=== PATIENT | female | born 1960 | race Caucasian/White ===

== ENCOUNTER 2018-03-04 17:57 | Inpatient (IN) | payer MEDICARE, OTHER ==
[~2018-03-04] VITALS: Ht 162.6 cm; Wt 94.3 kg
[~2018-03-04 17:57] MED LIST: ALPRAZOLAM; ALPRAZOLAM1 M1 PO; AMLODIPINE BESY10 MG PO; BUSPIRONE HCL5 MG PO; CARAFATE1 GM PO; CRESTOR20 MG PO; DILAUDID2 MG; ESCITALOPRAM OX20 MG PO; FENOFIBRATE134 MG PO; FUROSEMIDE20 MG PO; LEXAPRO; LYRICA75 MG PO; NORCO 10-325 T1 EACH PO; OMEPRAZOLE40 MG PO; OXYCODONE; OXYCODONE HCL5 M1; OXYCODONE-ACET1 EAC3 PO; POTASSIUM; POTASSIUM CHLO20 ME1 PO; REGLAN10 MG PO; RISPERDAL; RISPERDAL0.5 MG PO; TALWIN PO; VASCEPA PO; XANAX; XANAX1 MG PO; ZANAFLEX; ZANAFLEX4 MG PO; ZOFRAN ODT4 MG PO; tylenol #4 PO
[2018-03-04] MEDS ORDERED: ASPIRIN 81 MG CHEW TAB PO ONE (18:45)
[2018-03-04] MEDS ORDERED: ACETAMINOPHEN 1000 MG/100 ML IV ONE (19:15)
--- NOTE | 2018-03-04 19:29 | Diagnostic Imaging Report ---
EXAMINATION: CHEST SINGLE (PORTABLE) INDICATION: Chest pain COMPARISON: Chest x-ray 09/19/2017 FINDINGS: AP view TUBES and LINES: None. LUNGS: Lungs are not well inflated. Perihilar vascular crowding and atelectasis. There is no evidence of pneumonia or pulmonary edema. PLEURA: No pleural effusion or pneumothorax. HEART AND MEDIASTINUM: The cardiomediastinal silhouette is unremarkable. BONES AND SOFT TISSUES: No acute osseous lesion. Healed left rib fractures. Soft tissues are unremarkable. UPPER ABDOMEN: No free air under the diaphragm. IMPRESSION: Hypoinflated lungs with perihilar vascular crowding and atelectasis. No acute abnormalities. Signed by: Dr. Armaan Fernández M.D. on 03/04/2018 7:25 PM
[2018-03-04 19:41] LABS: BASOPHILS % 0.1 % (0.0-1.0); EOSINOPHILS # (AUTO) 0.2 (0.0-0.4); EOSINOPHILS % 1.6 % (0.0-6.0); HEMATOCRIT 36.2 % (34.2-44.1); HEMOGLOBIN 11.6 g/dL (12.0-16.0); LYMPHOCYTES # (AUTO) 2.6 (1.0-3.2); MEAN CORPUSCULAR HEMOGLOBIN 26.5 pg (28-32); MEAN CORPUSCULAR VOLUME 82.8 fL (81-99); NEUTROPHILS # (AUTO) 9.9 (2.1-6.9); PLATELET COUNT 246 x10e3/uL (140-360); RED BLOOD COUNT 4.37 x10e6/uL (3.6-5.1); RED CELL DISTRIBUTION WIDTH 14.3 % (11.7-14.4)
[2018-03-04 19:54] LABS: INR 1.01; PARTIAL THROMBOPLASTIN TIME 30.4 seconds (23.8-35.5); PROTHROMBIN TIME 12.5 seconds (11.9-14.5)
[2018-03-04 20:05] LABS: ALANINE AMINOTRANSFERASE 12 IU/L (0-55); ALBUMIN 3.8 g/dL (3.5-5.0); ALBUMIN/GLOBULIN RATIO 1.1 (0.8-2.0); ALKALINE PHOSPHATASE 122 IU/L (40-150); ANION GAP 14.5 mmol/L (8-16); BLOOD UREA NITROGEN 16 mg/dL (7-26); BUN/CREATININE RATIO 16 (6-25); CALCIUM 9.4 mg/dL (8.4-10.2); CARBON DIOXIDE 22 mmol/L (22-29); CHLORIDE 103 mmol/L (98-107); CREATINE KINASE 182 IU/L (29-168); CREATININE, SERUM 0.99 mg/dL (0.57-1.11); EST GLOMERULAR FILTRATION RATE 57 ML/MIN (60-); GLUCOSE 107 mg/dL (74-118); POTASSIUM 4.5 mmol/L (3.5-5.1); SODIUM 135 mmol/L (136-145)
[2018-03-04] MEDS ORDERED: FUROSEMIDE INJ 10 MG/ML 4 ML VIAL IV ONE (23:15)
[2018-03-05] VITALS (7 sets, daily range): BP systolic 82–147; BP diastolic 55–78
[2018-03-05] MEDS ORDERED: SODIUM CHLORIDE 0.9% 1000ML 1,000 ML IV SCH (00:01)
--- OUTSIDE RECORDS SUMMARY | 2018-03-05 00:11 | XMS REPORT | Clinical Summary ---
Author Author [facility] Address Unknown Phone Unavailable Care Team Providers Care Operations Forester Name Role Phone PCP Unavailable Allergies No Known Allergies Current Medications Prescription Sig. Disp. Refills Start End Date Status Date ALPRAZolam (XANAX) 0.25 Take 0.25 mg by mouth as Active MG tablet needed for Anxiety. atorvastatin (LIPITOR) 40 Take 1 tablet (40 mg 30 tablet 2 09/21/20 09/21/20 Active MG tablet total) by mouth nightly. 17 18 carvedilol (COREG) 3.125 Take 1 tablet (3.125 mg 60 tablet 2 09/21/20 09/21/20 Active MG tablet total) by mouth 2 (two) 17 18 times daily with breakfast and dinner. gabapentin (NEURONTIN) Take 1 capsule (100 mg 90 capsule 2 09/21/20 09/21/20 Active 100 MG capsule total) by mouth 3 (three) 17 18 times daily. clindamycin (CLEOCIN) 300 Take 1 capsule (300 mg 21 capsule 0 09/28/20 MG capsule total) by mouth 3 (three) 17 17 times daily for 7 days. Active Problems Problem Noted Date Other chest pain 09/19/2017 Cellulitis 09/19/2017 Chest pain 09/19/2017 Encounters Date Type Specialty Care Team Description 09/19/2017 [facility] General Internal Medicine Diogenes Palafox Cellulitis of right lower - Encounter MD Triny extremity;Other chest 09/21/2017 No Jones, pain;Chronic back painMD unspecified back location, unspecified back pain laterality 09/19/2017 Orders Only General Internal Medicine after 03/04/2017 Social History Tobacco Use Types Packs/Day Years Used Date Never Assessed Sex Assigned at Date Recorded Not on file Last Filed Vital Signs Vital Sign Reading Time Taken Blood Pressure 126/78 09/21/2017 3:00 PM YARN TEXTURE MACHINE OPERATOR Pulse 72 09/21/2017 3:00 PM YARN TEXTURE MACHINE OPERATOR Temperature 35.8 C (96.5 F) 09/21/2017 3:00 PM YARN TEXTURE MACHINE OPERATOR Respiratory Rate 19 09/21/2017 3:00 PM YARN TEXTURE MACHINE OPERATOR Oxygen Saturation 98% 09/21/2017 3:00 PM YARN TEXTURE MACHINE OPERATOR Inhaled Oxygen - - Concentration Weight 90.7 kg (200 lb) 09/21/2017 3:00 PM YARN TEXTURE MACHINE OPERATOR Height - - Body Mass Index - - Plan of Treatment Not on file Results * RHYTHM STRIP - SCAN (10/06/2017 2:16 PM) Only the most recent of 3 results within the time period is included. * EKG-SCANNED (09/23/2017 1:10 PM) * CBC with platelet count + automated diff (09/21/2017 5:06 AM) Only the most recent of 4 results within the time period is included. Component Value Ref Range WBC 7.8 3.5 - 10.5 K/ L RBC 3.95 3.93 - 5.22 M/ L Hemoglobin 10.9 (L) 11.2 - 15.7 GM/DL Hematocrit 35.2 34.1 - 44.9 % MCV 89.1 79.4 - 94.8 fL MCH 27.6 25.6 - 32.2 pg MCHC 31.0 (L) 32.2 - 35.5 GM/DL RDW 14.6 (H) 11.7 - 14.4 % Platelets 260 150 - 450 K/CU MM MPV 10.2 9.4 - 12.3 fL nRBC 0 0 - 0 /100 WBC % Neutros 51 % % Lymphs 34 % % Monos 11 % % Eos 4 % % Baso 0 % # Neutros 4.00 1.56 - 6.13 K/ L # Lymphs 2.67 1.18 - 3.74 K/ L # Monos 0.82 (H) 0.24 - 0.36 K/ L # Eos 0.28 0.04 - 0.36 K/ L # Baso 0.02 0.01 - 0.08 K/ L Immature 0 0 - 1 % Granulocytes-Relative Specimen Performing Laboratory Blood - Arm, Left [facility] [address] [address] * CBC with platelet count + automated diff (09/21/2017 5:06 AM) Only the most recent of 4 results within the time period is included. Specimen Performing Laboratory Blood Narrative The following orders were created for panel order CBC with platelet count + automated diff. Procedure Abnormality Status --------- - ------ CBC with platelet count ...[[id number]]AbnormalFinal result Please view results for these tests on the individual orders. * Hepatic function panel (09/21/2017 5:06 AM) Only the most recent of 3 results within the time period is included. Component Value Ref Range Protein, Total 6.6Comment: Specimen slightly hemolyzed 6.0 - 8.3 gm/dL Albumin 3.6Comment: Specimen slightly hemolyzed 3.5 - 5.0 g/dL Total Bilirubin <0.3Comment: Specimen slightly hemolyzed 0.2 - 1.2 mg/dL Bilirubin, Direct 0.1Comment: Specimen slightly hemolyzed 0.1 - 0.5 mg/dL Alkaline Phosphatase 100 40 - 150 U/L AST 21Comment: Specimen slightly hemolyzed 5 - 34 U/L ALT 15Comment: Specimen slightly hemolyzed 6 - 55 U/L Specimen Performing Laboratory Blood - Arm, [address] [address] * Basic metabolic panel (09/21/2017 5:06 AM) Only the most recent of 4 results within the time period is included. Component Value Ref Range Sodium 140 136 - 145 meq/L Potassium 4.0Comment: Specimen slightly hemolyzed 3.5 - 5.1 meq/L Chloride 104 98 - 107 meq/L CO2 27 22 - 29 meq/L BUN 14 7 - 21 mg/dL Creatinine 0.76Comment: Specimen slightly hemolyzed 0.57 - 1.25 mg/dL Glucose 128 (H) 70 - 105 mg/dL Calcium 8.6 8.4 - 10.2 mg/dL EGFR 78Comment: ESTIMATED GFR IS NOT ACCURATE mL/min/1.73 sq m CREATININE CLEARANCE IN PREDICTING GLOMERULAR FILTRATION RATE. ESTIMATED GFR IS NOT APPLICABLE FOR DIALYSIS PATIENTS. Specimen Performing Laboratory Blood - Arm, [address] [address] * ECHOCARDIOGRAM REPORT - SCAN (09/20/2017 3:20 PM) * PERIPHERAL VASCULAR REPORT - SCAN (09/20/2017 3:20 PM) * Troponin I (09/20/2017 12:28 PM) Only the most recent of 4 results within the time period is included. Component Value Ref Range Troponin I <0.01 0.00 - 0.03 ng/mL Specimen Performing Laboratory Blood - Arm, [address] [address] Narrative Troponin I (TnI) levels must be interpreted in the context of the presenting symptoms and the clinical findings. Elevated TnI levels indicate myocardial damage, but are not specific for ischemic heart disease. Elevated TnI levels are seen in patients with other cardiac conditions (including myocarditis and congestive heart failure), and slight TnI elevations occur in patients with other conditions, including sepsis, renal failure, acidosis, acute neurological disease, and persistent tachyarrhythmia. * Creatine Kinase (CK), Total and MB (09/20/2017 12:28 PM) Only the most recent of 4 results within the time period is included. Component Value Ref Range Total CK 404 (H) 29 - 200 U/L CK-MB 4.9 0.0 - 6.6 ng/mL MB Relative Index 1.2 % Specimen Performing Laboratory Blood - Arm, [place] [address] Narrative CK-MB Reference Range: <6.7Normal 6.7-10.0Borderline >10.0 Abnormal * Transthoracic 2D echo w/ doppler (cw/pw/color) (09/20/2017 10:26 AM) Component Value Ref Range Ejection Fraction Specimen Performing Laboratory [facility] Narrative Transthoracic Echocardiography Report (TTE) Demographics Patient Name Preston WEISS of Study 09/20/2017 LILLIE [id number] Female Visit Number [id number] Unknown [id number] Room Number 955 Number Date of Birth1960Referring Physician Diogenes Palafox MD Age57 year(s)Derrick Engineer Gisela Calix, Interpreting Nupur Redding MD Procedure Type of Study TTE procedure:2DECHO W DOPPLER(CW/PW/COLOR) (JON) Indications:Acute Chest Pain/ Suspected CAD. Clinical History CHEST PAIN CELLULITIS HGB 13.3 HCT 42.9 % Height: 63 inches Weight: 70.31 kg (155 lbs) BSA: 1.74 m^2 BMI: 27.46 kg/m^2 HR: 83 bpm BP: 156/86 mmHg Summary The left ventricle is chamber size (by vol index) is normal (female - LVED vol - 29-61ml/m2). LV septal thickness is normal (0.6-1.1cm). LV posterior wall thickness is mildly increased (1.2-1.4cm) . All of the LV segments contract normally . Global LV systolic function normal . Estimated LVEF by qualitative assessment is normal (55-60%) . Grade 1 diastolic dysfunction (impaired relaxation and low-normal LA pressure). The right ventricular chamber size and systolic function are within normal limits. Unable to estimate peak systolic PA pressure; inadequate TR velocity signal. No pericardial effusion is visualized. Previous Study No prior exam available for comparison. Signature Findings Technical Quality: Technically adequate exam. Rhythm/BPRegular sinus rhythm during the exam. Left Ventricle The left ventricle is chamber size (by vol index ) is normal (female - LVED vol - 29-61ml/m2). LV septal thickness is normal (0.6- 1.1cm). LV posterior wall thickness is mildly increased (1.2-1.4cm) . All of the LV segments contract normally . Global LV systolic function normal . Estimated LVEF by qualitative assessment is normal (55-60%) . Grade 1 diastolic dysfunction ( impaired relaxation and low-normal LA pressure). Left AtriumLA is well visualized. LA size is normal (16-34 ml/m2) . Right VentricleThe right ventricular chamber size and systolic function are within normal limits. Right Atrium The RA is well visualized. RA cavity size is normal . Aortic Valve Mild AoV cusp thickening. No evidence of aortic regurgitation. No evidence of aortic stenosis. Mitral Valve Normal MV structure. Trace mitral regurgitation. Tricuspid ValveTV structure is normal. A trace of tricuspid regurgitation. Unable to estimate peak systolic PA pressure; inadequate TR velocity signal. Pulmonic Valve Normal PV structure and function by limited views and Doppler. AortaAortic root size (SInus of Valsalva diameter) is normal . PericardiumNo pericardial effusion is visualized. IVC/SVC/PA/PV/PleuralThe inferior vena cava is adequately visualized. The inferior vena cava size is normal . The estimated RA pressure by IVC dynamics 0-5mmHg . Chambers/Structures Left Atrium LA Volume: 41.35 mlLA Area: 15.8 cm ^2 LA Vol. Index: 24 ml/m^2 Left Ventricle LVIDd: 4.7 cm LVIDs: 2.94 cm LV Septum Diastolic: 1.11 cm LV PW Diastolic: 1.36 cmLV FS: 37.5 % LVEDV Chow's:87.33 ml LVEDVI: 50 ml/m^2 LVOT Diameter: 2.13 cm Doppler/Quantitative Measurements Mitral Valve MV Peak E-Wave: 0.7 m/s MV Peak A-Wave: 0.99 m/s E/ A Ratio: 0.7 Peak Gradient: 1.96 mmHg Deceleration Time: 203.7 msec MV Dane. Peak: Tissue Doppler E' Lateral Velocity: 0.13 m/s A' Lateral Velocity: 0.14 m/s E/E ': 5.35 Aortic Valve Peak Velocity: 2.03 m/sMean Velocity: 1.41 m/s Peak Gradient: 16.54 mmHgMean Gradient: 9.19 mmHg AV Area (continuity): 2.25 cm^2 AV VTI: 42.87 cm AV DVI: 0.63 LVOT Peak Velocity: 1.25 m/s Peak Gradient: 6.28 mmHg Mean Velocity: 0.78 m/s Mean Gradient: 2.95 mmHg LVOT Diameter: 2.13 cmLVOT VTI: 27.13 cm LVOT Area: 3.56 cm^2LVOT SV:96.62 ml LVOT CO: 8.02 l/min LVOT CI: 4.61 l/min/m^2 Procedure Note Interface, External Ris In - 09/20/2017 2:56 PM YARN TEXTURE MACHINE OPERATOR Transthoracic Echocardiography Report (TTE) Demographics Patient Name ROCIO WEISS Date of Study 09/20/2017 LILLIE Gender Female Visit Number [id number] Race Unknown Room Number 955 Number Date of 1960 Referring Physician Diogenes Palafox MD Age 57 year(s) Derrick Engineer Gisela Mcconnell Office Machine Technician Lor Calix, Interpreting Johnson Rutherford RDCS Physician Procedure Type of Study TTE procedure:2DECHO W DOPPLER(CW/PW/COLOR) (JON) Indications:Acute Chest Pain/ Suspected CAD. Clinical History CHEST PAIN CELLULITIS HGB 13.3 HCT 42.9 % Height: 63 inches Weight: 70.31 kg (155 lbs) BSA: 1.74 m^2 BMI: 27.46 kg/m^2 HR: 83 bpm BP: 156/86 mmHg Summary The left ventricle is chamber size (by vol index) is normal (female - LVED vol - 29-61ml/m2). LV septal thickness is normal (0.6-1.1cm). LV posterior wall thickness is mildly increased (1.2-1.4cm) . All of the LV segments contract normally . Global LV systolic function normal . Estimated LVEF by qualitative assessment is normal (55-60%) . Grade 1 diastolic dysfunction (impaired relaxation and low-normal LA pressure). The right ventricular chamber size and systolic function are within normal limits. Unable to estimate peak systolic PA pressure; inadequate TR velocity signal. No pericardial effusion is visualized. Previous Study No prior exam available for comparison. Signature Findings Technical Quality: Technically adequate exam. Rhythm/BP Regular sinus rhythm during the exam. Left Ventricle The left ventricle is chamber size (by vol index) is normal (female - LVED vol - 29-61ml/m2). LV septal thickness is normal (0.6-1.1cm). LV posterior wall thickness is mildly increased (1.2-1.4cm) . All of the LV segments contract normally . Global LV systolic function normal . Estimated LVEF by qualitative assessment is normal (55-60%) . Grade 1 diastolic dysfunction (impaired relaxation and low-normal LA pressure). Left Atrium LA is well visualized. LA size is normal (16-34 ml/m2) . Right Ventricle The right ventricular chamber size and systolic function are within normal limits. Right Atrium The RA is well visualized. RA cavity size is normal . Aortic Valve Mild AoV cusp thickening. No evidence of aortic regurgitation. No evidence of aortic stenosis. Mitral Valve Normal MV structure. Trace mitral regurgitation. Tricuspid Valve TV structure is normal. A trace of tricuspid regurgitation. Unable to estimate peak systolic PA pressure; inadequate TR velocity signal. Pulmonic Valve Normal PV structure and function by limited views and Doppler. Aorta Aortic root size (SInus of Valsalva diameter) is normal . Pericardium No pericardial effusion is visualized. IVC/SVC/PA/PV/Pleural The inferior vena cava is adequately visualized. The inferior vena cava size is normal . The estimated RA pressure by IVC dynamics 0-5mmHg . Chambers/Structures Left Atrium LA Volume: 41.35 ml LA Area: 15.8 cm^2 LA Vol. Index: 24 ml/m^2 Left Ventricle LVIDd: 4.7 cm LVIDs: 2.94 cm LV Septum Diastolic: 1.11 cm LV PW Diastolic: 1.36 cm LV FS: 37.5 % LVEDV Chow's:87.33 ml LVEDVI: 50 ml/m^2 LVOT Diameter: 2.13 cm Doppler/Quantitative Measurements Mitral Valve MV Peak E-Wave: 0.7 m/s MV Peak A-Wave: 0.99 m/s E/A Ratio: 0.7 Peak Gradient: 1.96 mmHg Deceleration Time: 203.7 msec MV Dane. Peak: Tissue Doppler E' Lateral Velocity: 0.13 m/s A' Lateral Velocity: 0.14 m/s E/E': 5.35 Aortic Valve Peak Velocity: 2.03 m/s Mean Velocity: 1.41 m/s Peak Gradient: 16.54 mmHg Mean Gradient: 9.19 mmHg AV Area (continuity): 2.25 cm^2 AV VTI: 42.87 cm AV DVI: 0.63 LVOT Peak Velocity: 1.25 m/s Peak Gradient: 6.28 mmHg Mean Velocity: 0.78 m/s Mean Gradient: 2.95 mmHg LVOT Diameter: 2.13 cm LVOT VTI: 27.13 cm LVOT Area: 3.56 cm^2 LVOT SV:96.62 ml LVOT CO: 8.02 l/min LVOT CI: 4.61 l/min/m^2 * Venous doppler legs bilateral (09/20/2017 8:55 AM) Component Value Ref Range Ejection Fraction Specimen Performing Laboratory [facility] Impressions Right Impression 1. There is no deep venous obstruction in the common femoral, profunda femoral, femoral, popliteal or posterior tibial veins where visualized. 2. There is no superficial venous obstruction in the great saphenous vein where visualized. 3. The peroneal veins are not visualized due to edema and patients inability to remain still. Left Impression 1. There is no deep venous obstruction in the common femoral, profunda femoral, femoral, popliteal or posterior tibial veins where visualized. 2. There is no superficial venous obstruction in the great saphenous vein where visualized. 3. The peroneal veins are not visualized due to edema and patients inability to remain still. Conclusions Summary Venous duplex imaging and compression of the bilateral lower extremities were performed. The veins were technically difficult to visualize due to edema and patient body habitus. The bilateral venous systems were patent and compressible with no evidence of thrombus where visualized. The venous Doppler waveforms were phasic with respiration. Signature Velocities are measured in cm/s ; Diameters are measured in cm Narrative PV LAB - Lower Extremities DVT Study Demographics Patient NameROCIO WEISS Date of Study 09/20/2017 LILLIE Age 57 Visit [id number] Gender Female Date of 1959 Number Referring Annabel Warner Room Number 955 Physician MD Shar Derrick Engineer Ayaka Jimenez T InterpretingPhysician ANI Mills, KALIN Procedure Type of Study: Veins: Lower Extremities DVT Study, VENOUS DOPPLER LEG, BILATERAL. Indications for Study:Bilateral leg pain and Bilateral leg swelling. Patient Status:Routine. Study Location:Portable. Technical Quality:Technically Difficult. Risk Factors History of Disease + +----+ + !Diagnosis !Date!Comments ! + +----+ + !History/Risk Factors: !!Chest pain and back pain. ! + +----+ + Procedure Note Interface, External Ris In - 09/20/2017 2:31 PM YARN TEXTURE MACHINE OPERATOR PV LAB - Lower Extremities DVT Study Demographics Patient Name ROCIO WEISS Date of Study 09/20/2017 LILLIE Age 57 Visit Number [id number] Gender Female Date of 1960 Number Referring Annabel Warner Room Number 955 Physician MD Shar Derrick Engineer Ayaka Jimenez T Interpreting Chris Talley, Physician , RPVI Procedure Type of Study: Veins: Lower Extremities DVT Study, VENOUS DOPPLER LEG, BILATERAL. Indications for Study:Bilateral leg pain and Bilateral leg swelling. Patient Status:Routine. Study Location:Portable. Technical Quality:Technically Difficult. Risk Factors History of Disease + +----+ + !Diagnosis !Date!Comments ! + +----+ + !History/Risk Factors: ! !Chest pain and back pain. ! + +----+ + Impressions Right Impression 1. There is no deep venous obstruction in the common femoral, profunda femoral, femoral, popliteal or posterior tibial veins where visualized. 2. There is no superficial venous obstruction in the great saphenous vein where visualized. 3. The peroneal veins are not visualized due to edema and patients inability to remain still. Left Impression 1. There is no deep venous obstruction in the common femoral, profunda femoral, femoral, popliteal or posterior tibial veins where visualized. 2. There is no superficial venous obstruction in the great saphenous vein where visualized. 3. The peroneal veins are not visualized due to edema and patients inability to remain still. Conclusions Summary Venous duplex imaging and compression of the bilateral lower extremities were performed. The veins were technically difficult to visualize due to edema and patient body habitus. The bilateral venous systems were patent and compressible with no evidence of thrombus where visualized. The venous Doppler waveforms were phasic with respiration. Signature Velocities are measured in cm/s ; Diameters are measured in cm * B-type Natriuretic Factor (BNP) (09/20/2017 4:55 AM) Component Value Ref Range BNP 80 0 - 100 pg/mL Specimen Performing Laboratory Blood - Arm, [address] [address] * Lipid panel (09/20/2017 4:55 AM) Component Value Ref Range Triglycerides 154Comment: Specimen slightly hemolyzed mg/dL Cholesterol 269Comment: Specimen slightly hemolyzed mg/dL HDL 49 mg/dL LDL Calculated 189 mg/dL Specimen Performing Laboratory Blood - Arm, [address] [address] Narrative Triglyceride Reference Range: Low Risk <150 [id number] High Risk 200-499 Very High Risk>=500 Cholesterol Reference Range: Low Risk <200 Cyuciohjmi783-594 High Risk>240 HDL Cholesterol Reference Range: Low Risk >=60 High Risk <40 LDL Cholesterol Reference Range: Optimal<100 Near Qqmgggx999-572 [id number] Cuni930-299 Very High >=190 * Rapid drug screen, urine (09/20/2017 1:44 AM) Component Value Ref Range Barbiturate Screen Negative Negative Benzodiazepine Screen Negative Negative Cocaine (Metab.) Screen Negative Negative Methadone Screen Negative Negative Opiate Screen Positive (A) Negative Cannabinoid Screen Negative Negative Amph/Methamph Screen Negative Negative Phencyclidine Screen Negative Negative Oxycodone Screen Negative Negative Specimen Performing Laboratory Urine - Urine, Voided [address] [address] Narrative DRUGCUTOFF CONC. Cocaine 300 ng/mL Gnuishbusxt81 ng/mL Ngngtqkgsxzyjr978 ng/mL Barbiturate 200 ng/mL Qjhiobhryxzhl71 ng/mL Ilijuj884 ng/mL Methadone 300 ng/mL Amphetamine/ 1000 ng/mL Methamphetamine Oxycodone 300 ng/mL This assay provides an unconfirmed qualitative test result for the clinical management of patients in emergency situations. Chain of custody not maintained. Some qiet-tti-mtthklm medications, as well as adulterants, may cause inaccurate results. Clinical correlation should be applied. A more comprehensive drug screen or confirmation of a detected drug may be performed upon request. * Urinalysis w/ Microscopic (09/20/2017 1:44 AM) Component Value Ref Range Color, UA Light Yellow Clarity, UA Clear Specific [place], UA 1.009 1.001 - 1.035 pH, UA 7.5 5.0 - 8.0 Protein, UA Negative Negative Glucose, UA Negative Negative Ketones, UA 20 mg/dL (A) Negative Bilirubin, UA Negative Negative Blood, UA Negative Negative Nitrite, UA Negative Negative Leukocytes, UA Negative Negative Urobilinogen, UA 0.2 0.2 - 1.0 mg/dL RBC, UA 1 /HPF WBC, UA <1 /HPF Bacteria, UA Rare Squam Epithel, UA 1 /HPF Hyaline Casts, UA 2 /LPF Amorphous Crystals Rare Specimen Source Urine, Voided Specimen Performing Laboratory Urine - Urine, Voided [address] [address] * Influenza A H1N1 PCR (09/19/2017 11:40 PM) Component Value Ref Range Influenza A RNA Not Detected Not Detected, Inconclusive Novel H1N1 RNA Not Detected Not Detected, Inconclusive Specimen Performing Laboratory Nasal - Nasopharyngeal [facility] [address] [place] [address] Narrative These assays were performed by real-time RT-PCR (welder gas automatic-PCR) utilizing fluorogenic hydrolysis probe technology for the detection of human Influenza A viruses and the differential detection of novel H1N1 Influenza virus in respiratory specimens. The test is composed of (1) an RNA extraction from patient specimen, and (2) welder gas automatic-PCR amplification and detection with human Influenza A and novel O0R0-hjffovti primers and probes. A well-conserved region of the Influenza A matrix gene is targeted in one set of reactions to identify both seasonal Influenza A and novel H1N1 Influenza virus in the specimen.In addition, a specific region of the hemagglutinin gene is targeted to differentiate the novel H1N1 virus from the seasonal human influenza. An internal control is used to confirm PCR amplification.Genetic variation and other factors can affect the accuracy of nucleic acid testing; therefore, the results should be interpreted in light of clinical data. This test was developed and its performance characteristics determined by the [facility] Department, Section of Molecular Pathology.It has not been cleared or approved by the U.S. Food and Drug Administration (FDA).Since FDA approval is not required for clinical use of the test, validation was done as required by The Clinical Laboratory Amendments of 1988. These assays were performed by real-time RT-PCR (welder gas automatic-PCR) utilizing fluorogenic hydrolysis probe technology for the detection of human Influenza A viruses and the differential detection of novel H1N1 Influenza virus in respiratory specimens. The test is composed of (1) an RNA extraction from patient specimen, and (2) welder gas automatic-PCR amplification and detection with human Influenza A and novel [id number]-[id number] primers and probes. A well-conserved region of the Influenza A matrix gene is targeted in one set of reactions to identify both seasonal Influenza A and novel H1N1 Influenza virus in the specimen.In addition, a specific region of the hemagglutinin gene is targeted to differentiate the novel H1N1 virus from the seasonal human influenza. An internal control is used to confirm PCR amplification.Genetic variation and other factors can affect the accuracy of nucleic acid testing; therefore, the results should be interpreted in light of clinical data. This test was developed and its performance characteristics determined by the [facility] Department, Section of Molecular Pathology.It has not been cleared or approved by the U.S. Food and Drug Administration (FDA).Since FDA approval is not required for clinical use of the test, validation was done as required by The Clinical Laboratory Amendments of 1988. * Rapid Influenza A&B Screen (09/19/2017 11:40 PM) Component Value Ref Range Rapid Influenza A Antigen Negative Negative, Inconclusive Rapid influenza B Antigen Negative Negative, Inconclusive Specimen Performing Laboratory Nasal - Nasopharyngeal [facility] Swab [address] [place] [address] * TSH/Free T4 If Indicated (09/19/2017 10:48 PM) Component Value Ref Range TSH 1.02 0.35 - 4.94 uIU/mL Specimen Performing Laboratory Blood - Arm, Right [address] [address] * Prothrombin time/INR (09/19/2017 10:48 PM) Component Value Ref Range Protime 12.6 11.7 - 14.7 seconds INR 1.0 <=5.9 Specimen Performing Laboratory Blood - Arm, Right [address] [address] Narrative RECOMMENDED COUMADIN/WARFARIN INR THERAPY RANGES STANDARD DOSE: 2.0 - 3.0 Includes: PROPHYLAXIS for venous thrombosis, systemic embolization; TREATMENT for venous thrombosis and/or pulmonary embolus. HIGH RISK: Target INR is 2.5-3.5 for patients with mechanical heart valves. * Hemoglobin A1c (09/19/2017 10:48 PM) Component Value Ref Range Hemoglobin A1C 6.5 (H) 4.3 - 6.1 % Specimen Performing Laboratory Blood - Arm, Right [address] [address] * Blood culture (09/19/2017 10:42 PM) Only the most recent of 2 results within the time period is included. Component Value Ref Range Result No growth in 5 days Specimen Performing Laboratory Blood - Arm, Left [address] [address] * XR chest 1 view portable / bedside (09/19/2017 9:42 PM) Specimen Performing Laboratory [facility] Narrative FINAL REPORT Chest, portable AP view History: Chest pain Comparison: No comparisons available for review IMPRESSION: Examination is slightly limited by patient rotation to the right which exaggerates the size of the upper mediastinum. There is mild interstitial edema. Bibasilar atelectasis is present. No focal consolidation or pneumothorax. Signed: Tommy Camara MD Report Verified Date/Time:09/19/2017 22:04:44 Reading Location: [facility] Consult Reading Room Procedure Note Interface, External Ris In - 09/19/2017 10:06 PM [employer]PER[employer] FINAL REPORT Chest, portable AP view History: Chest pain Comparison: No comparisons available for review IMPRESSION: Examination is slightly limited by patient rotation to the right which exaggerates the size of the upper mediastinum. There is mild interstitial edema. Bibasilar atelectasis is present. No focal consolidation or pneumothorax. Signed: Tommy Camara MD Report Verified Date/Time: 09/19/2017 22:04:44 Reading Location: [facility] Consult Reading Room * ECG 12 lead (09/19/2017 7:17 PM) Specimen Performing Laboratory [employer] Narrative Ventricular Rate 103 BPM Atrial Rate 103 BPM P-R Interval 136 ms QRS Duration 84 ms Q-T Interval 368 ms QTC Calculation(Bazett) 482 ms P [place] 64 degrees R [place] 70 degrees T [place] 57 degrees Sinus tachycardia Nonspecific ST abnormality Abnormal ECG No previous ECGs available Confirmed by MD BUSTILLO RUPA ([id number]) on 09/20/2017 1:07:03 PM Procedure Note Interface, External Ris In - 09/20/2017 1: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
--- OUTSIDE RECORDS SUMMARY | 2018-03-05 00:11 | XMS REPORT ---
Author Author [facility] Address Unknown Phone Unavailable Care Team Providers Care Occupational Therapist Aide Name Role Phone JONATHAN SAMUEL Unavailable Unavailable ROLAND DOVECATHY Unavailable Unavailable TRUONG MORAES Unavailable Unavailable Problems This patient has no known problems. Allergies, Adverse Reactions, Alerts This patient has no known allergies or adverse reactions. Medications This patient has no known medications. Results Test Description Test Time Test Comments Text Results Atomic Results Result Comments BLOOD CULTURE 2017-09-25 05:02:00 CULTURE (BEAKER) (test lpdn=3572) No growth in 5 days BLOOD [id number] 05:02:00* Test Item Value Reference Range Comments CULTURE (BEAKER) (test xouv=4177) No growth in 5 days BASIC METABOLIC [id number] 06:36:00* Test Item Value Reference Range Comments SODIUM (BEAKER) (test nuqr=320) 140 meq/L 136-145 POTASSIUM (BEAKER) (test ykhe=875) 4.0 meq/L 3.5-5.1 Specimen slightly hemolyzed CHLORIDE (BEAKER) (test ivon=304) 104 meq/L 98-107 CO2 (BEAKER) (test uinb=066) 27 meq/L 22-29 BLOOD UREA NITROGEN (BEAKER) (test leax=736) 14 mg/dL 7-21 CREATININE (BEAKER) (test zqhi=905) 0.76 mg/dL 0.57-1.25 Specimen slightly hemolyzed GLUCOSE RANDOM (BEAKER) (test ypzy=001) 128 mg/dL 70-105 CALCIUM (BEAKER) (test ofyq=077) 8.6 mg/dL 8.4-10.2 EGFR (BEAKER) (test gidu=9617) 78 mL/min/1.73 sq m ESTIMATED GFR IS NOT ACCURATE CREATININE CLEARANCE IN PREDICTING GLOMERULAR FILTRATION RATE. ESTIMATED GFR IS NOT APPLICABLE FOR DIALYSIS PATIENTS. HEPATIC FUNCTION [id number] 06:36:00* Test Item Value Reference Range Comments TOTAL PROTEIN (BEAKER) (test ruhs=167) 6.6 gm/dL 6.0-8.3 Specimen slightly hemolyzed ALBUMIN (BEAKER) (test vqoj=6837) 3.6 g/dL 3.5-5.0 Specimen slightly hemolyzed BILIRUBIN TOTAL (BEAKER) (test fluo=170) < mg/dL 0.2-1.2 Specimen slightly hemolyzed BILIRUBIN DIRECT (BEAKER) (test ukxx=610) 0.1 mg/dL 0.1-0.5 Specimen slightly hemolyzed ALKALINE PHOSPHATASE (BEAKER) (test symh=504) 100 U/L 40-150 AST (SGOT) (BEAKER) (test avpe=589) 21 U/L 5-34 Specimen slightly hemolyzed ALT (SGPT) (BEAKER) (test lrhc=233) 15 U/L 6-55 Specimen slightly hemolyzed CBC W/PLT COUNT & AUTO [id number] 05:58:00* Test Item Value Reference Range Comments WHITE BLOOD CELL COUNT (BEAKER) (test gjrn=266) 7.8 K/ L 3.5-10.5 RED BLOOD CELL COUNT (BEAKER) (test tojz=088) 3.95 M/ L 3.93-5.22 HEMOGLOBIN (BEAKER) (test qvgk=470) 10.9 GM/DL 11.2-15.7 HEMATOCRIT (BEAKER) (test gpvr=806) 35.2 % 34.1-44.9 MEAN CORPUSCULAR VOLUME (BEAKER) (test qjwc=626) 89.1 fL 79.4-94.8 MEAN CORPUSCULAR HEMOGLOBIN (BEAKER) (test lxmo=565) 27.6 pg 25.6-32.2 MEAN CORPUSCULAR HEMOGLOBIN CONC (BEAKER) (test metq=539) 31.0 GM/DL 32.2- 35.5 RED CELL DISTRIBUTION WIDTH (BEAKER) (test mwhf=605) 14.6 % 11.7-14.4 PLATELET COUNT (BEAKER) (test eghq=952) 260 K/CU MM 150-450 MEAN PLATELET VOLUME (BEAKER) (test gqlo=889) 10.2 fL 9.4-12.3 NUCLEATED RED BLOOD CELLS (BEAKER) (test fkpo=734) 0 /100 WBC 0-0 NEUTROPHILS RELATIVE PERCENT (BEAKER) (test gdez=887) 51 % LYMPHOCYTES RELATIVE PERCENT (BEAKER) (test pqmb=268) 34 % MONOCYTES RELATIVE PERCENT (BEAKER) (test kfjc=003) 11 % EOSINOPHILS RELATIVE PERCENT (BEAKER) (test dgcm=465) 4 % BASOPHILS RELATIVE PERCENT (BEAKER) (test biuk=509) 0 % NEUTROPHILS ABSOLUTE COUNT (BEAKER) (test fyli=394) 4.00 K/ L 1.56-6.13 LYMPHOCYTES ABSOLUTE COUNT (BEAKER) (test ntry=531) 2.67 K/ L 1.18-3.74 MONOCYTES ABSOLUTE COUNT (BEAKER) (test wtlf=654) 0.82 K/ L 0.24-0.36 EOSINOPHILS ABSOLUTE COUNT (BEAKER) (test lqbq=819) 0.28 K/ L 0.04-0.36 BASOPHILS ABSOLUTE COUNT (BEAKER) (test qzkv=732) 0.02 K/ L 0.01-0.08 IMMATURE GRANULOCYTES-RELATIVE PERCENT (BEAKER) (test cwte=9630) 0 % 0-1 INFLUENZA A H1N1 [id number] 16:49:00* Test Item Value Reference Range Comments INFLUENZA A RNA (BEAKER) (test jjbe=9535) Not Detected Not Detected, Inconclusive NOVEL H1N1 RNA (BEAKER) (test opvg=5203) Not Detected Not Detected, Inconclusive These assays were performed by real-time RT-PCR (cotton broker-PCR) utilizing fluorogenic hydrolysis probe technology for the detection of human Influenza A viruses and the differential detection of novel H1N1 Influenza virus in respiratory specimens. The test is composed of (1) an RNA extraction from patient specimen, and (2) cotton broker-PCR amplification and detection with human Influenza A and novel K1X5-cyqgcrgp primers and probes. A well-conserved region of the Influenza A matrix gene is targeted in one set of reactions to identify both seasonal Influenza A and novel H1N1 Influenza virus in the specimen. In addition, a specific region of the hemagglutinin gene is targeted to differentiate the novel H1N1 virus from the seasonal human influenza. An internal control is used to confirm PCR amplification. Genetic variation and other factors can affect the accuracy of nucleic acid testing; therefore, the results should be interpreted in light of clinical data. This test was developed and its performance characteristics determined by the [facility] Pathology Department, Section of Molecular Pathology. It has not been cleared or approved by the U.S. Food and Drug Administration (FDA). Since FDA approval is not required for clinical use of the test, validation was done as required by The Clinical Laboratory Amendments of 1988.These assays were performed by real-time RT-PCR (cotton broker-PCR) utilizing fluorogenic hydrolysis probe technology for the detection of human Influenza A viruses and the differential detection of novel H1N1 Influenza virus in respiratory specimens. The test is composed of (1) an RNA extraction from patient specimen, and (2) cotton broker-PCR amplification and detection with human Influenza A and novel T0U6-wllzcsso primers and probes. A well-conserved region of the Influenza A matrix gene is targeted in one set of reactions to identify both seasonal Influenza A and novel H1N1 Influenza virus in the specimen. In addition, a specific region of the hemagglutinin gene is targeted to differentiate the novel H1N1 virus from the seasonal human influenza. An internal control is used to confirm PCR amplification. Genetic variation and other factors can affect the accuracy of nucleic acid testing; therefore, the results should be interpreted in light of clinical data. This test was developed and its performance characteristics determined by the [facility] Pathology Department, Section of Molecular Pathology. It has not been cleared or approved by the U.S. Food and Drug Administration ( FDA). Since FDA approval is not required for clinical use of the test, validation was done as required by The Clinical Laboratory Amendments of 1988.CREATINE KINASE (CK), TOTAL AND [id number] 13:57:00* Test Item Value Reference Range Comments CREATINE KINASE TOTAL (BEAKER) (test asvu=245) 404 U/L 29-200 CREATINE KINASE-MB (BEAKER) (test voqx=730) 4.9 ng/mL 0.0-6.6 CREATINE KINASE-MB INDEX (BEAKER) (test tdch=777) 1.2 % CK-MB Reference Range:<6.7 Normal6.7-10.0 Borderline>10.0 AbnormalTROPONIN [id number] 13:57:00* Test Item Value Reference Range Comments TROPONIN I (BEAKER) (test jexb=855) < ng/mL 0.00-0.03 Troponin I (TnI) levels must be interpreted [...] failure, acidosis, acute neurological disease, and persistent tachyarrhythmia.B-TYPE NATRIURETIC FACTOR (BNP) 09:30:00* Test Item Value Reference Range Comments B-TYPE NATRIURETIC PEPTIDE (BEAKER) (test ujba=428) 80 pg/mL 0-100 TSH/FREE T4 IF [id number] 09:26:00* Test Item Value Reference Range Comments THYROID STIMULATING HORMONE (BEAKER) (test fbgn=201) 1.02 uIU/mL 0.35-4.94 HEMOGLOBIN [id number] 07:47:00* Test Item Value Reference Range Comments HEMOGLOBIN A1C (BEAKER) (test gnlo=565) 6.5 % 4.3-6.1 BASIC METABOLIC [id number] 06:41:00* Test Item Value Reference Range Comments SODIUM (BEAKER) (test qoby=028) 138 meq/L 136-145 POTASSIUM (BEAKER) (test rmxg=187) 3.7 meq/L 3.5-5.1 Specimen slightly hemolyzed CHLORIDE (BEAKER) (test noga=473) 103 meq/L 98-107 CO2 (BEAKER) (test wvgx=836) 22 meq/L 22-29 BLOOD UREA NITROGEN (BEAKER) (test iwwn=798) 10 mg/dL 7-21 CREATININE (BEAKER) (test jdyv=697) 0.80 mg/dL 0.57-1.25 Specimen slightly hemolyzed GLUCOSE RANDOM (BEAKER) (test ezst=894) 113 mg/dL 70-105 CALCIUM (BEAKER) (test rjfz=439) 9.1 mg/dL 8.4-10.2 EGFR (BEAKER) (test npok=9113) 74 mL/min/1.73 sq m ESTIMATED GFR IS NOT ACCURATE CREATININE CLEARANCE IN PREDICTING GLOMERULAR FILTRATION RATE. ESTIMATED GFR IS NOT APPLICABLE FOR DIALYSIS PATIENTS. LIPID [id number] 06:41:00* Test Item Value Reference Range Comments TRIGLYCERIDES (BEAKER) (test eoju=206) 154 mg/dL Specimen slightly hemolyzed CHOLESTEROL (BEAKER) (test zcht=098) 269 mg/dL Specimen slightly hemolyzed HDL CHOLESTEROL (BEAKER) (test nzlt=126) 49 mg/dL LDL CHOLESTEROL CALCULATED (BEAKER) (test bykg=388) 189 mg/dL Triglyceride Reference Range: Low Risk <150 Borderline 150-199 High Risk 200-499 Very High Risk >=500Cholesterol Reference Range: Low Risk <200 Borderline 200-239 High Risk >240HDL Cholesterol Reference Range: Low Risk >=60 High Risk <40LDL Cholesterol Reference Range: Optimal <100 Near Optimal 100-129 Borderline 130-159 High 160-189 Very High >=190 HEPATIC FUNCTION [id number] 06:41:00* Test Item Value Reference Range Comments TOTAL PROTEIN (BEAKER) (test cebp=679) 7.6 gm/dL 6.0-8.3 Specimen slightly hemolyzed ALBUMIN (BEAKER) (test wcqp=6645) 4.1 g/dL 3.5-5.0 Specimen slightly hemolyzed BILIRUBIN TOTAL (BEAKER) (test xzkn=114) 0.7 mg/dL 0.2-1.2 Specimen slightly hemolyzed BILIRUBIN DIRECT (BEAKER) (test bnyq=786) 0.2 mg/dL 0.1-0.5 Specimen slightly hemolyzed ALKALINE PHOSPHATASE (BEAKER) (test bgiq=138) 128 U/L 40-150 AST (SGOT) (BEAKER) (test uiad=393) 24 U/L 5-34 Specimen slightly hemolyzed ALT (SGPT) (BEAKER) (test wguu=402) 19 U/L 6-55 Specimen slightly hemolyzed CBC W/PLT COUNT & AUTO [id number] 06:20:00* Test Item Value Reference Range Comments WHITE BLOOD CELL COUNT (BEAKER) (test fgza=566) 13.5 K/ L 3.5-10.5 RED BLOOD CELL COUNT (BEAKER) (test rqmi=938) 4.86 M/ L 3.93-5.22 HEMOGLOBIN (BEAKER) (test scyk=561) 13.3 GM/DL 11.2-15.7 HEMATOCRIT (BEAKER) (test wgjn=258) 42.9 % 34.1-44.9 MEAN CORPUSCULAR VOLUME (BEAKER) (test vrce=278) 88.3 fL 79.4-94.8 MEAN CORPUSCULAR HEMOGLOBIN (BEAKER) (test wbuh=374) 27.4 pg 25.6-32.2 MEAN CORPUSCULAR HEMOGLOBIN CONC (BEAKER) (test qgem=995) 31.0 GM/DL 32.2- 35.5 RED CELL DISTRIBUTION WIDTH (BEAKER) (test utbd=904) 14.5 % 11.7-14.4 PLATELET COUNT (BEAKER) (test vluf=153) 312 K/CU MM 150-450 MEAN PLATELET VOLUME (BEAKER) (test qwun=197) 10.2 fL 9.4-12.3 NUCLEATED RED BLOOD CELLS (BEAKER) (test gllo=885) 0 /100 WBC 0-0 NEUTROPHILS RELATIVE PERCENT (BEAKER) (test csfd=529) 76 % LYMPHOCYTES RELATIVE PERCENT (BEAKER) (test smjh=126) 16 % MONOCYTES RELATIVE PERCENT (BEAKER) (test glib=933) 7 % EOSINOPHILS RELATIVE PERCENT (BEAKER) (test vsuf=910) 1 % BASOPHILS RELATIVE PERCENT (BEAKER) (test dsqx=637) 0 % NEUTROPHILS ABSOLUTE COUNT (BEAKER) (test wfbu=912) 10.24 K/ L 1.56-6.13 LYMPHOCYTES ABSOLUTE COUNT (BEAKER) (test eerg=206) 2.14 K/ L 1.18-3.74 MONOCYTES ABSOLUTE COUNT (BEAKER) (test sizb=600) 0.91 K/ L 0.24-0.36 EOSINOPHILS ABSOLUTE COUNT (BEAKER) (test inkp=029) 0.09 K/ L 0.04-0.36 BASOPHILS ABSOLUTE COUNT (BEAKER) (test owpc=423) 0.03 K/ L 0.01-0.08 IMMATURE GRANULOCYTES-RELATIVE PERCENT (BEAKER) (test hoyb=2206) 0 % 0-1 URINALYSIS W/ [id number] 05:07:00* Test Item Value Reference Range Comments COLOR (BEAKER) (test adxk=493) Light Yellow CLARITY (BEAKER) (test ljmi=184) Clear SPECIFIC GRAVITY UA (BEAKER) (test sltx=811) 1.009 1.001-1.035 PH UA (BEAKER) (test hptc=477) 7.5 5.0-8.0 PROTEIN UA (BEAKER) (test nmun=027) Negative Negative GLUCOSE UA (BEAKER) (test hqyl=489) Negative Negative KETONES UA (BEAKER) (test aahq=250) 20 mg/dL Negative BILIRUBIN UA (BEAKER) (test dzmr=199) Negative Negative BLOOD UA (BEAKER) (test ubfx=867) Negative Negative NITRITE UA (BEAKER) (test urnm=080) Negative Negative LEUKOCYTE ESTERASE UA (BEAKER) (test sbbt=145) Negative Negative UROBILINOGEN UA (BEAKER) (test oiki=354) 0.2 mg/dL 0.2-1.0 RBC UA (BEAKER) (test mtip=934) 1 /HPF WBC UA (BEAKER) (test drik=210) < /HPF BACTERIA (BEAKER) (test jjwy=099) Rare SQUAMOUS EPITHELIAL (BEAKER) (test zbdw=670) 1 /HPF HYALINE CASTS (BEAKER) (test gmjn=547) 2 /LPF AMORPHOUS CRYSTALS (BEAKER) (test nzbi=3667) Rare SOURCE(BEAKER) (test msdv=5065) Urine, Voided CREATINE KINASE (CK), TOTAL AND [id number] 03:10:00* Test Item Value Reference Range Comments CREATINE KINASE TOTAL (BEAKER) (test uwxc=121) 738 U/L 29-200 CREATINE KINASE-MB (BEAKER) (test smhn=181) 8.7 ng/mL 0.0-6.6 CREATINE KINASE-MB INDEX (BEAKER) (test ohmk=056) 1.2 % CK-MB Reference Range:<6.7 Normal6.7-10.0 Borderline>10.0 AbnormalTROPONIN [id number] 03:10:00* Test Item Value Reference Range Comments TROPONIN I (BEAKER) (test dkoi=911) < ng/mL 0.00-0.03 Troponin I (TnI) levels must be interpreted [...] failure, acidosis, acute neurological disease, and persistent tachyarrhythmia.RAPID DRUG SCREEN, [id number] 03:04 :00* Test Item Value Reference Range Comments BARBITURATE URINE (BEAKER) (test ldlz=806) Negative Negative BENZODIAZEPINE SCREEN URINE (BEAKER) (test vtyp=653) Negative Negative COCAINE (METAB.) SCREEN (BEAKER) (test tfcu=5358) Negative Negative METHADONE SCREEN (BEAKER) (test grwc=0314) Negative Negative OPIATE SCREEN URINE (BEAKER) (test tfpg=700) Positive Negative CANNABINOID SCREEN URINE (BEAKER) (test zqdw=202) Negative Negative AMPH/METHAMPH SCREEN (BEAKER) (test kttw=1065) Negative Negative PHENCYCLIDINE SCREEN URINE (BEAKER) (test mpgy=672) Negative Negative OXYCODONE SCREEN URINE (BEAKER) (test arrb=6058) Negative Negative DRUG CUTOFF CONC.Cocaine 300 ng/mL Cannabinoid 50 ng/mL Benzodiazepine 200 ng/mLBarbiturate 200 ng/ mLPhencyclidine 25 ng/mLOpiate 300 ng/mLMethadone 300 ng/mLAmphetamine/ 1000 ng/mL MethamphetamineOxycodone 300 ng/mLThis assay provides an unconfirmed qualitative test result for the clinical management of patients in emergency situations. Chain of custody not maintained. Some jgoj-ejc-ejyqflt medications, as well as adulterants, may cause inaccurate results. Clinical correlation should be applied. A more comprehensive drug screen or confirmation of a detected drug may be performed upon request.RAPID INFLUENZA A&B [id number] 00:20:00* Test Item Value Reference Range Comments RAPID INFLUENZA A AG (BEAKER) (test mmws=9683) Negative Negative, Inconclusive RAPID INFLUENZA B AG (BEAKER) (test yfkm=5742) Negative Negative, Inconclusive CREATINE KINASE (CK), TOTAL AND [id number] 00:13:00* Test Item Value Reference Range Comments CREATINE KINASE TOTAL (BEAKER) (test qjes=719) 619 U/L 29-200 CREATINE KINASE-MB (BEAKER) (test svgv=996) 7.8 ng/mL 0.0-6.6 CREATINE KINASE-MB INDEX (BEAKER) (test sdfu=268) 1.3 % CK-MB Reference Range:<6.7 Normal6.7-10.0 Borderline>10.0 AbnormalTROPONIN [id number] 00:13:00* Test Item Value Reference Range Comments TROPONIN I (BEAKER) (test hmlb=646) < ng/mL 0.00-0.03 Troponin I (TnI) levels must be interpreted [...] failure, acidosis, acute neurological disease, and persistent tachyarrhythmia.CREATINE KINASE (CK), TOTAL AND [id number] 00:12:00* Test Item Value Reference Range Comments CREATINE KINASE TOTAL (BEAKER) (test hhea=695) 622 U/L 29-200 CREATINE KINASE-MB (BEAKER) (test omrn=760) 8.3 ng/mL 0.0-6.6 CREATINE KINASE-MB INDEX (BEAKER) (test ahcc=347) 1.3 % CK-MB Reference Range:<6.7 Normal6.7-10.0 Borderline>10.0 AbnormalTROPONIN [id number] 00:12:00* Test Item Value Reference Range Comments TROPONIN I (BEAKER) (test bwna=832) < ng/mL 0.00-0.03 Troponin I (TnI) levels must be interpreted [...] failure, acidosis, acute neurological disease, and persistent tachyarrhythmia.BASIC METABOLIC [id number] 00:05:00 * Test Item Value Reference Range Comments SODIUM (BEAKER) (test eten=132) 138 meq/L 136-145 POTASSIUM (BEAKER) (test qbqn=644) 3.8 meq/L 3.5-5.1 CHLORIDE (BEAKER) (test pyjt=038) 103 meq/L 98-107 CO2 (BEAKER) (test nkpe=754) 22 meq/L 22-29 BLOOD UREA NITROGEN (BEAKER) (test blai=168) 13 mg/dL 7-21 CREATININE (BEAKER) (test lqiv=415) 0.93 mg/dL 0.57-1.25 GLUCOSE RANDOM (BEAKER) (test pcml=344) 103 mg/dL 70-105 CALCIUM (BEAKER) (test yaax=877) 9.2 mg/dL 8.4-10.2 EGFR (BEAKER) (test tjja=3344) 62 mL/min/1.73 sq m ESTIMATED GFR IS NOT ACCURATE CREATININE CLEARANCE IN PREDICTING GLOMERULAR FILTRATION RATE. ESTIMATED GFR IS NOT APPLICABLE FOR DIALYSIS PATIENTS. HEPATIC FUNCTION [id number] 00:04:00* Test Item Value Reference Range Comments TOTAL PROTEIN (BEAKER) (test trkf=932) 7.4 gm/dL 6.0-8.3 ALBUMIN (BEAKER) (test uidn=9703) 4.0 g/dL 3.5-5.0 BILIRUBIN TOTAL (BEAKER) (test qmfq=295) 0.5 mg/dL 0.2-1.2 BILIRUBIN DIRECT (BEAKER) (test tczb=007) 0.2 mg/dL 0.1-0.5 ALKALINE PHOSPHATASE (BEAKER) (test wzie=126) 126 U/L 40-150 AST (SGOT) (BEAKER) (test iycm=870) 21 U/L 5-34 ALT (SGPT) (BEAKER) (test pmjn=212) 17 U/L 6-55 BASIC METABOLIC [id number] 00:04:00* Test Item Value Reference Range Comments SODIUM (BEAKER) (test wboj=990) 136 meq/L 136-145 POTASSIUM (BEAKER) (test lnco=830) 3.9 meq/L 3.5-5.1 CHLORIDE (BEAKER) (test excw=040) 102 meq/L 98-107 CO2 (BEAKER) (test btrw=058) 21 meq/L 22-29 BLOOD UREA NITROGEN (BEAKER) (test jhkb=037) 13 mg/dL 7-21 CREATININE (BEAKER) (test blzs=492) 0.92 mg/dL 0.57-1.25 GLUCOSE RANDOM (BEAKER) (test yjmx=056) 102 mg/dL 70-105 CALCIUM (BEAKER) (test dxvi=648) 9.1 mg/dL 8.4-10.2 EGFR (BEAKER) (test dilm=2159) 63 mL/min/1.73 sq m ESTIMATED GFR IS NOT ACCURATE CREATININE CLEARANCE IN PREDICTING GLOMERULAR FILTRATION RATE. ESTIMATED GFR IS NOT APPLICABLE FOR DIALYSIS PATIENTS. PROTHROMBIN [id number] 23:53:00* Test Item Value Reference Range Comments PROTIME (BEAKER) (test oyqz=820) 12.6 seconds 11.7-14.7 INR (BEAKER) (test jznr=535) 1.0 <=5.9 RECOMMENDED COUMADIN/WARFARIN INR THERAPY RANGESSTANDARD DOSE: 2.0 - 3.0 Includes: PROPHYLAXIS for venous thrombosis, systemic embolization; TREATMENT for venous thrombosis and/or pulmonary embolus.HIGH RISK: Target INR is 2.5-3.5 for patients with mechanical heart valves.CBC W/PLT COUNT & AUTO [id number] 23:43:00* Test Item Value Reference Range Comments WHITE BLOOD CELL COUNT (BEAKER) (test ekyr=148) 14.0 K/ L 3.5-10.5 RED BLOOD CELL COUNT (BEAKER) (test owuf=711) 4.30 M/ L 3.93-5.22 HEMOGLOBIN (BEAKER) (test qxag=834) 11.6 GM/DL 11.2-15.7 HEMATOCRIT (BEAKER) (test lylj=079) 37.3 % 34.1-44.9 MEAN CORPUSCULAR VOLUME (BEAKER) (test ysud=227) 86.7 fL 79.4-94.8 MEAN CORPUSCULAR HEMOGLOBIN (BEAKER) (test rbqf=451) 27.0 pg 25.6-32.2 MEAN CORPUSCULAR HEMOGLOBIN CONC (BEAKER) (test yohg=100) 31.1 GM/DL 32.2- 35.5 RED CELL DISTRIBUTION WIDTH (BEAKER) (test tnwh=626) 14.6 % 11.7-14.4 PLATELET COUNT (BEAKER) (test ctey=609) 269 K/CU MM 150-450 MEAN PLATELET VOLUME (BEAKER) (test tpay=773) 10.4 fL 9.4-12.3 NUCLEATED RED BLOOD CELLS (BEAKER) (test vpzx=791) 0 /100 WBC 0-0 NEUTROPHILS RELATIVE PERCENT (BEAKER) (test fmbg=800) 74 % LYMPHOCYTES RELATIVE PERCENT (BEAKER) (test iwtg=018) 14 % MONOCYTES RELATIVE PERCENT (BEAKER) (test zmkz=400) 9 % EOSINOPHILS RELATIVE PERCENT (BEAKER) (test dcyu=954) 2 % BASOPHILS RELATIVE PERCENT (BEAKER) (test ovfa=005) 0 % NEUTROPHILS ABSOLUTE COUNT (BEAKER) (test tvql=894) 10.39 K/ L 1.56-6.13 LYMPHOCYTES ABSOLUTE COUNT (BEAKER) (test gnog=932) 1.96 K/ L 1.18-3.74 MONOCYTES ABSOLUTE COUNT (BEAKER) (test sxvz=260) 1.32 K/ L 0.24-0.36 EOSINOPHILS ABSOLUTE COUNT (BEAKER) (test mtsn=116) 0.23 K/ L 0.04-0.36 BASOPHILS ABSOLUTE COUNT (BEAKER) (test gwxn=201) 0.03 K/ L 0.01-0.08 IMMATURE GRANULOCYTES-RELATIVE PERCENT (BEAKER) (test zgsr=6185) 0 % 0-1 CBC W/PLT COUNT & AUTO [id number] 23:43:00* Test Item Value Reference Range Comments WHITE BLOOD CELL COUNT (BEAKER) (test mfwr=611) 14.3 K/ L 3.5-10.5 RED BLOOD CELL COUNT (BEAKER) (test kupo=916) 4.31 M/ L 3.93-5.22 HEMOGLOBIN (BEAKER) (test lmsw=345) 11.7 GM/DL 11.2-15.7 HEMATOCRIT (BEAKER) (test enwe=757) 37.7 % 34.1-44.9 MEAN CORPUSCULAR VOLUME (BEAKER) (test rtci=720) 87.5 fL 79.4-94.8 MEAN CORPUSCULAR HEMOGLOBIN (BEAKER) (test ntas=800) 27.1 pg 25.6-32.2 MEAN CORPUSCULAR HEMOGLOBIN CONC (BEAKER) (test jlji=761) 31.0 GM/DL 32.2- 35.5 RED CELL DISTRIBUTION WIDTH (BEAKER) (test xixx=216) 14.4 % 11.7-14.4 PLATELET COUNT (BEAKER) (test rzbj=341) 268 K/CU MM 150-450 MEAN PLATELET VOLUME (BEAKER) (test ncrw=618) 10.5 fL 9.4-12.3 NUCLEATED RED BLOOD CELLS (BEAKER) (test jdhh=149) 0 /100 WBC 0-0 NEUTROPHILS RELATIVE PERCENT (BEAKER) (test ofsf=852) 75 % LYMPHOCYTES RELATIVE PERCENT (BEAKER) (test mdmh=194) 14 % MONOCYTES RELATIVE PERCENT (BEAKER) (test krhj=560) 9 % EOSINOPHILS RELATIVE PERCENT (BEAKER) (test fozo=698) 2 % BASOPHILS RELATIVE PERCENT (BEAKER) (test apcx=376) 0 % NEUTROPHILS ABSOLUTE COUNT (BEAKER) (test xuzm=191) 10.66 K/ L 1.56-6.13 LYMPHOCYTES ABSOLUTE COUNT (BEAKER) (test olsw=608) 1.94 K/ L 1.18-3.74 MONOCYTES ABSOLUTE COUNT (BEAKER) (test wdoq=151) 1.35 K/ L 0.24-0.36 EOSINOPHILS ABSOLUTE COUNT (BEAKER) (test oibw=031) 0.25 K/ L 0.04-0.36 BASOPHILS ABSOLUTE COUNT (BEAKER) (test xidl=428) 0.04 K/ L 0.01-0.08 IMMATURE GRANULOCYTES-RELATIVE PERCENT (BEAKER) (test cbkr=8565) 1 % 0-1 RAD, CHEST, 1 VIEW, NON [id number] 22:04:00Reason for exam:->chest painIs the patient ?->UnknownShould this be performed at the bedside?-> YesFINAL REPORT Chest, portable AP view History: Chest pain Comparison: No comparisons available for review IMPRESSION: Examination is slightly limited by patient rotation to the right which exaggerates the size of the upper mediastinum. There is mild interstitial edema. Bibasilar atelectasis is present. No focal consolidation or pneumothorax. Signed: Tommy Camara MDReport Verified Date/Time: 09/19/2017 22:04:44 Reading Location: [address] Consult Reading Room T SINGLE (PORTABLE) [place] [address] Patient Name: ROCIO WEISS MR #: [id number] : 1960 Age/Sex: 58/F Req #: [id number] Adm Physician: Ordered by: ALMA RIVERA PARACHUTE CROWN SEWER Report #: [id number] Location: ER Room/Bed: ___ Procedure: [id number] DX/CHEST SINGLE (PORTABLE) Exam Date: 03/04/18 Exam Time: 1907 REPORT STATUS: Signed EXAMINATION: CHEST SINGLE (PORTABLE) INDICATION: Chest pain COMPARISON: Chest x-ray 09/19/2017 FINDINGS: AP view TUBES and LINES: None. LUNGS: Lungs are not well inflated. Perihilar vascular crowding and atelectasis. There is no evidence of pneumonia or pulmonary edema. PLEURA: No pleural effusion or pneumothorax. HEART AND MEDIASTINUM: The cardiomediastinal silhouette is unremarkable. BONES AND SOFT TISSUES: No acute osseous lesion. Healed left rib fractures. Soft tissues are unremarkable. UPPER ABDOMEN: No free air under the diaphragm. IMPRESSION: Hypoinflated lungs with perihilar vascular crowding and atelectasis. No acute abnormalities. Signed by: Dr. Alma oTure M.D. on 7:25 PM Dictated By: ALMA TUORE MD 24 Transcribed By: KATALINA on 03/04/181924 COPY TO : ALMA RIVERA PARACHUTE CROWN SEWER CHEST 2 VIEWS [place] [address] Patient Name: ROCIO WEISS MR #: [id number] : 1960 Age/Sex: 57/F Req #: [id number] Adm Physician: Ordered by: TRUONG MORAES MD Report #: [id number] Location: ER Room/Bed: Procedure: [id number] DX/CHEST 2 VIEWS Exam Date: 09/19/17 Exam Time: 1450 REPORT STATUS: Signed PROCEDURE: X-RAY CHEST, TWO VIEWS COMPARISON: [facility], DX, CHEST SINGLE (PORTABLE), 11/27/2016, 16:08. INDICATIONS: SWELLING OF LEGS FINDINGS: LUNGS: No consolidations or edema. Left basilar subsegmental atelectasis/ scarring. PLEURA: No effusions or pneumothorax. HEART T MEDIASTINUM: The heart is within normal size-limits. BONES T SOFT TISSUES: Old compressed lower T11 vertebral body. CONCLUSION: No acute thoracic abnormality. Allie Victor D.O. Dictated by: Allie Victor D.O. on 09/19/2017 at 15:12 Electronically approved by: Allie Victor D.O. on 09/19/2017 at 15:12 Dictated By: ALLIE VICTOR DO 1512 Transcribed By: HEENA on 09/19/17 1512 COPY TO: TRUONG MORAES MD
[2018-03-05] MEDS ORDERED: ONDANSETRON HCL 4 MG ORAL DISINTEGRATING TAB PO PRN (00:15)
[2018-03-05 00:53] LABS: BILIRUBIN,URINE NEGATIVE (NEGATIVE); CLARITY,URINE CLEAR (CLEAR); COLOR,URINE YELLOW (YELLOW); KETONES,URINE NEGATIVE (NEGATIVE); LEUKOCYTE ESTERASE ,URINE NEGATIVE (NEGATIVE); NITRITE,URINE POSITIVE (NEGATIVE); PROTEIN,URINE DIPSTICK NEGATIVE (NEGATIVE); URINE UROBILINOGEN 0.2 mg/dL (0.2 - 1)
[2018-03-05 01:12] LABS: BACTERIA,URINE MANY /HPF; EPITHELIAL CELLS,URINE RARE /LPF; WBC,URINE (MAN) 0-5 /HPF (0-5)
[2018-03-05] MEDS: HYDROMORPHONE 2MG/ML INJ IV PRN ×4 (01:45→11:19)
[2018-03-05 02:47] LABS: CREATINE KINASE 184 IU/L (29-168)
[2018-03-05] MEDS ORDERED: SODIUM CHLORIDE 0.9% 250ML 250 ML ONE (05:22)
[2018-03-05] MEDS: PIPER-TAZ 3.375 GM 100 ML IV SCH ×3 (05:38→18:00)
[2018-03-05] MEDS ORDERED: DILAUDID2 MG PO (06:10)
[2018-03-05 10:28] LABS: CREATINE KINASE 148 IU/L (29-168)
[2018-03-05] MEDS ORDERED: SODIUM CHLORIDE 0.9% 50ML 50 ML ONE (11:12)
[2018-03-05] MEDS ORDERED: IOPAMIDOL 370 MG/ML 200 ML INFUS..BTL INJ ONE (11:12)
--- NOTE | 2018-03-05 12:27 | Diagnostic Imaging Report ---
This report includes an Addendum and supersedes previous reports for this exam. PROCEDURE: CT ABDOMEN AND PELVIS WITH CONTRAST TECHNIQUE: The abdomen and pelvis were scanned utilizing a multidetector helical scanner from the diaphragm to the lesser trochanter after the IV administration of 100 cc of Isovue 370 and the oral administration of 900 mL of water. Coronal and sagittal multiplanar reformations were obtained. COMPARISON: CT of the abdomen and pelvis 12/01/2016. INDICATIONS: PAIN FINDINGS: LINES/TUBES: A Parsons catheter is in the bladder. An electronic device is present in the subcutaneous fat of the left lower quadrant anterior abdominal wall. There is an epidural catheter from a spinal stimulator device with its tip at the L1 vertebral body. LOWER THORAX: Subsegmental atelectasis and scarlike opacities in the lung bases. HEPATOBILIARY: No focal hepatic lesions. No biliary ductal dilatation. The gallbladder is nondistended. SPLEEN: No splenomegaly. PANCREAS: No focal masses or ductal dilatation. ADRENALS: No adrenal nodules. KIDNEYS/URETERS: No hydronephrosis, stones, or solid mass lesions. Tiny hypodensities in both kidneys are too small to characterize, but likely represent cysts. PELVIC ORGANS/BLADDER: The bladder is not distended due to a Parsons catheter. The uterus is absent. PERITONEUM / RETROPERITONEUM: No free air or fluid. LYMPH NODES: No lymphadenopathy. VESSELS: There is a focal filling defect in the right common or external iliac vein (series 2, image 64). Mild atherosclerotic calcifications of the aorta and its branches. GI TRACT: No distention or wall thickening. The appendix is not visualized, but there is no suspicious inflammation in the right lower quadrant. BONES AND SOFT TISSUES: S-shaped scoliosis of the thoracolumbar spine, unchanged. Multilevel spondylosis of the thoracic and lumbar spine. Severe facet arthrosis affects the lower lumbar spine. There is grade 1 anterolisthesis of L4. Superior endplate changes of the L5 vertebral body are likely degenerative. Chronic compression fracture of the T11 vertebral body with about 50% height loss and focal kyphosis, unchanged. IMPRESSION: 1. Small filling defect in the right common or external iliac vein is suspicious for deep venous thrombosis. 2. Otherwise no specific findings to account for patient's pain. 3. T11 vertebral body compression fracture, unchanged. Dictated by: Judah Ghosh M.D. on 03/05/2018 at 12:28 Electronically approved by: Judah Ghosh M.D. on 03/05/2018 at 12:28 ADDENDUM: The finding of right iliac DVT was discussed with Rosa, the patient's inpatient nurse, at 12:32 pm on 03/05/2018. Dictated by: Judah Ghosh M.D. on 03/05/2018 at 12:32 Electronically approved by: Judah Ghosh M.D. on 03/05/2018 at 12:32
[2018-03-05] MEDS: TIZANIDINE HCL 4 MG TAB PO SCH ×2 (14:16→21:00)
[2018-03-05] MEDS: HYDROMORPHONE HCL 2 MG TAB PO SCH ×2 (14:16→18:00)
[2018-03-05] MEDS: FAMOTIDINE 20 MG TAB PO SCH ×2 (14:16→16:30)
--- NOTE | 2018-03-05 15:09 | History and Physical ---
PRIMARY CARE PROVIDER: Cam Rodriguez MD CHIEF COMPLAINT: Pain and swelling of lower extremities. HISTORY OF PRESENT ILLNESS: Ms. Leiva is a 58-year-old female who presents with increasing pain and swelling of the lower extremities, right hip, lower back. Patient has a history of chronic pain, chronic back pain, fibromyalgia. Has herniated lumbar disk. Has a pain pump implanted in the left lower quadrant with Dilaudid intrathecal to the spine. Plus, she takes Dilaudid 4 mg orally 4 times a day. She noticed swelling, right side greater than left, for the last couple of days in her legs along with increasing pain particularly in the right lower quadrant, hip area and suprapubic area. REVIEW OF SYSTEMS: She denies fever, chills or weight loss. She denies sinus congestion or sore throat. She denies chest pain or palpitations. She denies shortness breath, wheezing or cough. She has some right lower quadrant abdominal pain, more in the pelvic and hip area. She denies diarrhea, nausea, vomiting or melena. She denies dysuria or flank pain. She denies rash or pruritus. She denies joint pain or swelling. She has generalized myalgia, arthralgia, muscle and limb pain. She denies bleeding or bruising. She has depression but denies homicidal or suicidal ideation. She has anxiety as well. She denies headache, vertigo or loss of consciousness. PAST MEDICAL HISTORY: Significant for long-standing chronic back pain, fibromyalgia, gastroesophageal reflux, hyperlipidemia, arthritis, depression. She has had previous surgery on her knee and foot and has had a pain pump implanted in the left lower quadrant of the abdomen. MEDICATIONS: Her regular medications include: 1. BuSpar 5 mg twice a day. 2. Celexa 20 mg daily. 3. Dilaudid 4 mg q.6 h. 4. Zanaflex 4 mg 3 times a day. 5. Potassium 20 mEq twice daily. SURGICAL HISTORY: Includes surgery on the knee and foot and the implanted pain pump. ALLERGIES: SHE HAS STATED ALLERGIES TO CODEINE AND MORPHINE. FAMILY HISTORY: Significant for hypertension. SOCIAL HISTORY: The patient is , and Serbian is her primary language. She is generally independently functioning. PHYSICAL EXAMINATION PSYCHIATRIC: She is alert and oriented times 3 with normal mood and affect. CONSTITUTIONAL: She has a normal habitus. She is in no acute distress. VITAL SIGNS: Blood pressure 147/78. Pulse 86 and regular. Respiratory rate 16. O2 sat 98%. Temperature 98.9. HEENT: Head is atraumatic. Eyes are anicteric with clear conjunctivae. Ears and nares are without erythema or discharge. Oropharynx is clear. NECK: Supple with no mass or thyromegaly. LYMPHATIC SYSTEM: She has no palpable cervical, axillary or inguinal adenopathy. CARDIOVASCULAR: Her heart has a regular rate and rhythm without murmur or extra heart sounds. She has trace peripheral edema. RESPIRATORY: Lungs are clear to auscultation and percussion with normal respiratory effort. GASTROINTESTINAL: Abdomen is soft without organomegaly, masses or tenderness. She does have a little bit of tenderness in the right lower quadrant and pelvic and hip area. No rebound or guarding. There are no masses palpable. Normal bowel sounds are present. CUTANEOUS: Her skin is warm and dry to touch. No rash or skin breakdown. MUSCULOSKELETAL: Her joints are in normal alignment without erythema or swelling. She has no calf tenderness. NEUROLOGIC: Exam is nonfocal with intact cranial nerves and no motor or sensory deficits. DIAGNOSTIC STUDIES: Chest x-ray shows no acute disease. CT scan of the abdomen shows no acute disease. It does show a small filling defect in the right iliac vein. Bilateral venous Dopplers were negative for DVT in either leg. Her UA had 5-10 white cells and many bacteria. Her troponin is 0.001 times 3. BNP is less than 10.0, but her CPK is a little elevated at 182, 184 and then back to baseline at 148, with the MP fraction being slightly elevated. Her chemistry profile shows normal electrolytes, CO2 22, creatinine 0.99, and BUN 16. Glucose 107. Transaminases, bilirubin and alk phos are normal. CBC shows a white count 13.7 with 72% neutrophils. Hemoglobin 13.6, hematocrit 36.2 and platelet count 246,000. IMPRESSION AND PLAN 1. Pain and swelling of bilateral lower extremities. The patient has had a venous Doppler already that was negative for any kind of blood clots. Will elevate the legs and wrap in Jhonathan wraps. Will get an MRI scan of the right hip and of the lumbar spine to evaluate the pain. Will also get an echocardiogram to assess LV function and to address whether this is heart failure or not. 2. Chronic pain. Patient will continue her p.o. Dilaudid. Will give IV Dilaudid as needed here. Patient has a pain pump and will need to follow up with her pain doctor on discharge. It sounds like maybe the pain medication needs to be increased. 3. Urinary tract infection. Patient has been started on IV Zosyn empirically pending culture report. 4. For prophylaxis, the patient will be on Lovenox for DVT prophylaxis and Pepcid for GI prophylaxis. Job#: [id number]
[2018-03-05] MEDS: BUSPIRONE HCL 5 MG TAB PO SCH (17:00)
[2018-03-05] MEDS: ENOXAPARIN SOD INJ 40 MG/0.4 ML SYR SC SCH (17:00)
[2018-03-05 18:34] LABS: CREATINE KINASE 133 IU/L (29-168)
[2018-03-06] VITALS (7 sets, daily range): BP systolic 84–148; BP diastolic 47–82
[2018-03-06] MEDS ORDERED: SODIUM CHLORIDE 0.9% 250ML 250 ML ONE (00:48)
[2018-03-06] MEDS: PIPER-TAZ 3.375 GM 100 ML IV SCH ×4 (00:50→17:15)
[2018-03-06] MEDS: HYDROMORPHONE HCL 2 MG TAB PO SCH ×4 (05:32→14:30)
[2018-03-06 05:53] LABS: BASOPHILS % 0.5 % (0.0-1.0); EOSINOPHILS # (AUTO) 0.1 (0.0-0.4); EOSINOPHILS % 2.1 % (0.0-6.0); HEMATOCRIT 38.6 % (34.2-44.1); HEMOGLOBIN 12.2 g/dL (12.0-16.0); LYMPHOCYTES # (AUTO) 1.3 (1.0-3.2); LYMPHOCYTES % 21.9 % (18.0-39.1); MEAN CORPUSCULAR HEMOGLOBIN 26.5 pg (28-32); MEAN CORPUSCULAR HGB CONC 31.6 g/dL (31-35); MEAN CORPUSCULAR VOLUME 83.9 fL (81-99); MONOCYTES # (AUTO) 0.6 (0.2-0.8); MONOCYTES % 9.8 % (4.4-11.3); NEUTROPHILS # (AUTO) 3.8 (2.1-6.9); NEUTROPHILS % 65.5 % (38.7-80.0); PLATELET COUNT 207 x10e3/uL (140-360); RED CELL DISTRIBUTION WIDTH 14.5 % (11.7-14.4)
[2018-03-06 06:25] LABS: ALANINE AMINOTRANSFERASE 18 IU/L (0-55); ALBUMIN 3.2 g/dL (3.5-5.0); ALKALINE PHOSPHATASE 105 IU/L (40-150); ANION GAP 12.5 mmol/L (8-16); BLOOD UREA NITROGEN 11 mg/dL (7-26); BUN/CREATININE RATIO 14 (6-25); CALCIUM 9.1 mg/dL (8.4-10.2); CARBON DIOXIDE 27 mmol/L (22-29); CHLORIDE 106 mmol/L (98-107); CREATININE, SERUM 0.79 mg/dL (0.57-1.11); EST GLOMERULAR FILTRATION RATE > 60 ML/MIN (60-); GLUCOSE 110 mg/dL (74-118); POTASSIUM 3.5 mmol/L (3.5-5.1); SODIUM 142 mmol/L (136-145)
[2018-03-06] MEDS: FAMOTIDINE 20 MG TAB PO SCH ×2 (07:30→16:11)
[2018-03-06] MEDS: HYDROMORPHONE 2MG/ML INJ IV PRN ×2 (08:18→17:00)
[2018-03-06] MEDS: ESCITALOPRAM OXALATE 10 MG TAB PO SCH (09:00)
[2018-03-06] MEDS ORDERED: NON-FORMULARY MEDICATION (Escitalopram Oxalate 20 MG) PO SCH (09:00)
[2018-03-06] MEDS: TIZANIDINE HCL 4 MG TAB PO SCH ×3 (09:00→23:30)
[2018-03-06] MEDS: BUSPIRONE HCL 5 MG TAB PO SCH ×2 (09:00→16:11)
--- NOTE | 2018-03-06 10:18 | Cardiology Report ---
DATE OF STUDY: March 05, 2018 DOPPLER SCAN OF LOWER EXTREMITIES The lower extremity veins were interrogated using the duplex scanning method. The veins were compressible. There were no definitive deep venous thrombosis. CONCLUSIONS: No definite deep venous thrombosis involving the lower extremity veins bilaterally. Job#: [id number] cc:GREGORY BLACK MD
--- NOTE | 2018-03-06 10:22 | Cardiology Report ---
DATE OF STUDY: March 05, 2018 ECHOCARDIOGRAM ATTENDING PHYSICIAN: Dr. Gregory Watson M-MODE: Normal chamber sizes. Borderline left ventricular hypertrophy. Normal contractility. Mild aortic sclerosis. Normal mitral and tricuspid valves. No pericardial effusion. SECTOR SCAN: Normal chamber sizes. Borderline left ventricular hypertrophy. Normal contractility. Ejection fraction is approximately 70%. Aortic valve is mildly sclerotic. Normal mitral and tricuspid valves. No pericardial effusion. CARDIAC DOPPLER STUDY WITH COLOR: Evidence of diastolic dysfunction. Aortic velocity was 2.1 meters per second at the peak. There is trace mitral and tricuspid regurgitation. Pulmonary artery systolic pressure estimated at 21 mmHg. CONCLUSIONS: 1. Borderline left ventricular hypertrophy with ejection fraction of approximately 70%. 2. Suggestion of diastolic dysfunction. 3. Aortic sclerosis with aortic velocity of 2.1 meters per second. The images do not suggest significant aortic stenosis. 4. Trace mitral and tricuspid regurgitation. Job#: [id number] cc:GREGORY WATSON MD
[2018-03-06] MEDS ORDERED: LORAZEPAM 1 MG TAB PO NR (12:45)
[2018-03-06] MEDS ORDERED: POLYETHYLENE GLYCOL 3350 17 GM PACK PO PRN (15:15)
[2018-03-06] MEDS ORDERED: LACTULOSE SYRUP 20 GM/30 ML UDC PO ONE (15:15)
--- NOTE | 2018-03-06 15:33 | Diagnostic Imaging Report ---
History: 58-year-old female with chronic low back pain. Comparison studies: CT abdomen pelvis, 12/01/2016 Technique: Sagittal T1, T2 and IR, coronal T2, axial T2 with and without fat sat and axial spin density oblique Intravenous contrast: None Findings: Number of lumbar vertebral bodies: 5 . Soft tissues: No T2 hyperintense inflammatory changes . Paraspinal muscles: No signal abnormalities. Well-preserved. No atrophic changes . Lower thoracic cord: Normal in size and signal. The tip of the conus is at L1-L2. Cauda equina:No masses. No arachnoiditis . Vertebrae: S shaped scoliosis of the thoraco-lumbar spine is seen, with leftward curvature centered at T11-T12, and rightward curvature centered at L3. Chronic compression fracture of T11, with 80 % loss of height centrally. L5 chronic superior endplate compression fracture with approximately 20% loss centrally. Degenerative changes: L1-L2 Mildly degenerated disc. Symmetric disc bulge and mild facet arthropathy with mild left foraminal stenosis, and no significant canal stenosis L2-L3: Mild degenerative disc. Left asymmetric disc bulge and mild facet arthropathy cause moderate left foraminal stenosis without significant canal stenosis L3-L4: Mildly degenerate disc. Symmetric disc bulge and facet arthropathy cause moderate left foraminal stenosis and mild canal stenosis L4-L5: Moderately degenerative disc Symmetric disc bulge and severe facet arthropathy cause moderate canal stenosis and moderate left foraminal stenosis Grade 1 anterolisthesis of L4-L5, along with mild rightward lateral displacement of L4 over L5. L5-S1: Mildly degenerated disc. Right asymmetric disc bulge and facet arthropathy causing moderate right foraminal stenosis Partially visualized sacrum: No abnormalities . IMPRESSION: 1. S-shaped of the thoracolumbar spine, with mild leftward curvature at T11-T12 and moderate rightward curvature at L3, with moderate multilevel degenerative changes. 2. Moderate canal stenosis at L4-L5 and mild canal stenosis at L3-L4. 3. Multilevel mild to moderate foraminal stenosis, as detailed above. 4. Chronic T11 vertebral body compression fracture with 80% loss of height centrally. 5. Chronic L5 superior endplate compression fracture with 20% loss of height centrally. A preliminary report was given by Neuroradiology fellow Dr. Wolfe at 3:32 PM on 03/06/2018. I have reviewed the study and agree with the findings in the preliminary report. Signed by: Dr. Debbie Salmon M.D. on 03/06/2018 10:24 PM
[2018-03-06] MEDS: DOCUSATE SODIUM 100 MG CAP PO SCH (16:11)
[2018-03-06] MEDS: ENOXAPARIN SOD INJ 40 MG/0.4 ML SYR SC SCH (16:12)
[2018-03-07] VITALS: BP 105/61
[2018-03-07] MEDS: PIPER-TAZ 3.375 GM 100 ML IV SCH ×4 (00:08→17:19)
[2018-03-07 04:00] VITALS: BP 106/66
[2018-03-07] MEDS: HYDROMORPHONE 2MG/ML INJ IV PRN ×3 (04:35→19:42)
[2018-03-07 06:45] LABS: BASOPHILS % 0.6 % (0.0-1.0); EOSINOPHILS # (AUTO) 0.2 (0.0-0.4); EOSINOPHILS % 2.7 % (0.0-6.0); HEMATOCRIT 35.3 % (34.2-44.1); HEMOGLOBIN 11.3 g/dL (12.0-16.0); LYMPHOCYTES # (AUTO) 1.9 (1.0-3.2); LYMPHOCYTES % 26.5 % (18.0-39.1); MEAN CORPUSCULAR HEMOGLOBIN 26.5 pg (28-32); MEAN CORPUSCULAR VOLUME 82.9 fL (81-99); MONOCYTES # (AUTO) 0.5 (0.2-0.8); MONOCYTES % 7.6 % (4.4-11.3); NEUTROPHILS # (AUTO) 4.4 (2.1-6.9); NEUTROPHILS % 62.3 % (38.7-80.0); PLATELET COUNT 237 x10e3/uL (140-360); RED BLOOD COUNT 4.26 x10e6/uL (3.6-5.1); RED CELL DISTRIBUTION WIDTH 14.6 % (11.7-14.4)
[2018-03-07 07:09] LABS: ANION GAP 11.6 mmol/L (8-16); BLOOD UREA NITROGEN 11 mg/dL (7-26); BUN/CREATININE RATIO 13 (6-25); CARBON DIOXIDE 28 mmol/L (22-29); CHLORIDE 106 mmol/L (98-107); CREATININE, SERUM 0.84 mg/dL (0.57-1.11); EST GLOMERULAR FILTRATION RATE > 60 ML/MIN (60-); GLUCOSE 107 mg/dL (74-118); MAGNESIUM 1.7 MG/DL (1.3-2.1); POTASSIUM 3.6 mmol/L (3.5-5.1); SODIUM 142 mmol/L (136-145)
[2018-03-07] MEDS: FAMOTIDINE 20 MG TAB PO SCH ×2 (07:30→16:30)
[2018-03-07 08:00] VITALS: BP_SYST 106; BP_SYST 126; BP_DIAS 55; BP_DIAS 66
[2018-03-07] MEDS ORDERED: POLYETHYLENE GLYCOL 3350 17 GM PACK PO PRN (08:00)
[2018-03-07] MEDS: HYDROMORPHONE HCL 2 MG TAB PO SCH ×4 (08:15→16:02)
[2018-03-07] MEDS: TIZANIDINE HCL 4 MG TAB PO SCH ×3 (09:00→23:50)
[2018-03-07] MEDS: BUSPIRONE HCL 5 MG TAB PO SCH ×2 (09:00→17:00)
[2018-03-07] MEDS: DOCUSATE SODIUM 100 MG CAP PO SCH ×4 (09:00→17:00)
[2018-03-07] MEDS: ESCITALOPRAM OXALATE 10 MG TAB PO SCH (09:00)
[2018-03-07 12:00] VITALS: BP 99/50
[2018-03-07 16:00] VITALS: BP 135/61
[2018-03-07] MEDS: ENOXAPARIN SOD INJ 40 MG/0.4 ML SYR SC SCH (17:00)
[2018-03-07 20:00] VITALS: BP 112/58
[2018-03-08] VITALS (8 sets, daily range): BP systolic 111–146; BP diastolic 59–82
[2018-03-08] MEDS: PIPER-TAZ 3.375 GM 100 ML IV SCH ×5 (00:06→23:55)
[2018-03-08] MEDS: HYDROMORPHONE HCL 2 MG TAB PO SCH ×3 (00:07→12:18)
[2018-03-08] MEDS ORDERED: HYDROMORPHONE 2MG/ML INJ IV PRN (04:15)
[2018-03-08 07:30] LABS: BASOPHILS % 0.4 % (0.0-1.0); EOSINOPHILS # (AUTO) 0.2 (0.0-0.4); EOSINOPHILS % 3.4 % (0.0-6.0); HEMATOCRIT 38.4 % (34.2-44.1); HEMOGLOBIN 12.3 g/dL (12.0-16.0); LYMPHOCYTES # (AUTO) 2.4 (1.0-3.2); LYMPHOCYTES % 34.8 % (18.0-39.1); MEAN CORPUSCULAR HEMOGLOBIN 26.6 pg (28-32); MEAN CORPUSCULAR VOLUME 82.9 fL (81-99); MONOCYTES # (AUTO) 0.6 (0.2-0.8); MONOCYTES % 8.3 % (4.4-11.3); NEUTROPHILS # (AUTO) 3.7 (2.1-6.9); PLATELET COUNT 266 x10e3/uL (140-360); RED BLOOD COUNT 4.63 x10e6/uL (3.6-5.1); RED CELL DISTRIBUTION WIDTH 14.6 % (11.7-14.4)
[2018-03-08 07:59] LABS: ANION GAP 13.2 mmol/L (8-16); BLOOD UREA NITROGEN 9 mg/dL (7-26); BUN/CREATININE RATIO 10 (6-25); CALCIUM 9.5 mg/dL (8.4-10.2); CARBON DIOXIDE 28 mmol/L (22-29); CHLORIDE 106 mmol/L (98-107); CREATININE, SERUM 0.87 mg/dL (0.57-1.11); EST GLOMERULAR FILTRATION RATE > 60 ML/MIN (60-); GLUCOSE 93 mg/dL (74-118); MAGNESIUM 1.9 MG/DL (1.3-2.1); POTASSIUM 3.2 mmol/L (3.5-5.1); SODIUM 144 mmol/L (136-145)
[2018-03-08] MEDS: BUSPIRONE HCL 5 MG TAB PO SCH ×2 (08:46→16:58)
[2018-03-08] MEDS: ESCITALOPRAM OXALATE 10 MG TAB PO SCH (08:46)
[2018-03-08] MEDS: HYDROMORPHONE 2MG/ML INJ IV PRN ×4 (08:46→22:16)
[2018-03-08] MEDS: FAMOTIDINE 20 MG TAB PO SCH ×2 (08:46→16:58)
[2018-03-08] MEDS: TIZANIDINE HCL 4 MG TAB PO SCH ×3 (08:46→20:34)
[2018-03-08] MEDS: DOCUSATE SODIUM 100 MG CAP PO SCH ×3 (09:00→16:12)
[2018-03-08] MEDS ORDERED: POTASSIUM CHLORIDE 20 MEQ TAB CR PO ONE (11:15)
[2018-03-08] MEDS: ENOXAPARIN SOD INJ 40 MG/0.4 ML SYR SC SCH (16:58)
[2018-03-09 01:07] VITALS: BP 145/69
[2018-03-09] MEDS: HYDROMORPHONE 2MG/ML INJ IV PRN ×5 (01:59→14:52)
[2018-03-09] MEDS: PIPER-TAZ 3.375 GM 100 ML IV SCH ×2 (05:18→11:26)
[2018-03-09 05:48] VITALS: BP 150/84
[2018-03-09] MEDS: FAMOTIDINE 20 MG TAB PO SCH (07:30)
[2018-03-09 08:00] VITALS: BP 165/69
[2018-03-09] MEDS: TIZANIDINE HCL 4 MG TAB PO SCH (09:00)
[2018-03-09] MEDS: ESCITALOPRAM OXALATE 10 MG TAB PO SCH (09:00)
[2018-03-09] MEDS: DOCUSATE SODIUM 100 MG CAP PO SCH (09:00)
[2018-03-09] MEDS: BUSPIRONE HCL 5 MG TAB PO SCH (09:00)
[2018-03-09] MEDS ORDERED: CEFTIN PO (10:20)
[2018-03-09 10:32] LABS: BASOPHILS % 0.6 % (0.0-1.0); EOSINOPHILS # (AUTO) 0.3 (0.0-0.4); EOSINOPHILS % 3.9 % (0.0-6.0); HEMATOCRIT 42.5 % (34.2-44.1); HEMOGLOBIN 13.4 g/dL (12.0-16.0); LYMPHOCYTES # (AUTO) 2.8 (1.0-3.2); LYMPHOCYTES % 38.7 % (18.0-39.1); MEAN CORPUSCULAR HGB CONC 31.5 g/dL (31-35); MEAN CORPUSCULAR VOLUME 82.5 fL (81-99); MONOCYTES # (AUTO) 0.7 (0.2-0.8); MONOCYTES % 9.4 % (4.4-11.3); NEUTROPHILS # (AUTO) 3.4 (2.1-6.9); NEUTROPHILS % 47.1 % (38.7-80.0); PLATELET COUNT 288 x10e3/uL (140-360); RED BLOOD COUNT 5.15 x10e6/uL (3.6-5.1); RED CELL DISTRIBUTION WIDTH 14.5 % (11.7-14.4)
[2018-03-09 10:44] LABS: INR 0.94; PROTHROMBIN TIME 11.8 seconds (11.9-14.5)
[2018-03-09 10:45] LABS: PARTIAL THROMBOPLASTIN TIME 28.1 seconds (23.8-35.5)
[2018-03-09 10:51] LABS: ANION GAP 14.1 mmol/L (8-16); BLOOD UREA NITROGEN 11 mg/dL (7-26); BUN/CREATININE RATIO 12 (6-25); CALCIUM 10.1 mg/dL (8.4-10.2); CARBON DIOXIDE 25 mmol/L (22-29); CHLORIDE 108 mmol/L (98-107); CREATININE, SERUM 0.93 mg/dL (0.57-1.11); EST GLOMERULAR FILTRATION RATE > 60 ML/MIN (60-); GLUCOSE 106 mg/dL (74-118); MAGNESIUM 2.1 MG/DL (1.3-2.1); POTASSIUM 4.1 mmol/L (3.5-5.1); SODIUM 143 mmol/L (136-145)
[2018-03-09 12:00] VITALS: BP 171/95
--- NOTE | 2018-03-09 16:58 | Discharge Summary ---
ADMISSION DIAGNOSES 1. Pain and swelling of bilateral lower extremities. 2. Chronic pain. 3. Urinary tract infection. DISCHARGE DIAGNOSES 1. Pain and swelling of bilateral lower extremities. 2. Chronic pain. 3. Urinary tract infection. 4. Ruled out deep vein thrombosis. 5. Hypokalemia. HISTORY: Patient has a history of chronic back pain, fibromyalgia, GERD, hyperlipidemia, arthritis, depression, previous surgical history of knee and foot as well as a pain pump implanted in the left lower quadrant of her abdomen. HOSPITAL COURSE: A 58-year-old female presents with increasing pain and swelling of the lower extremities, right hip, lower back. She has herniated lumbar disk with a pain pump implanted in the left lower quadrant with Dilaudid intrathecal to the spine, plus she takes Dilaudid 4 mg orally 4 times a day. She noticed the swelling on the right side more than the left the last couple of days in her legs as well as increasing pain, particularly in the right. On admission patient had a venous Doppler done which was negative. Patient's legs were elevated and wrapped with Jhonathan bandages. Patient had a chest x-ray which showed hypoinflated lungs with perihilar vascular crowding and atelectasis. No acute abnormality. CT of the abdomen showed small filling defect in the right common or external iliac vein is suspicious for DVT. Otherwise no specific findings to account for patient's pain. T11 vertebra compression fracture unchanged. Venous Doppler was negative per Cardiology. MRI of the lumbar spine show S shape of the thoracolumbar spine with mild leftward curvature at T11-T12 and moderate rightward curvature at L3 with moderate multilevel degenerative changes. Moderate canal stenosis at L4-L5 and mild canal stenosis at L3-L4. Multilevel mild to moderate foraminal stenosis. Chronic T11 vertebral body compression fracture with 80% loss of height centrally, chronic L5 compression fracture with 20% loss of height centrally. Patient had blood cultures which were negative, had a urine culture which showed E. coli. Patient was started on Zosyn and discharged with Ceftin, to both of which E. coli was sensitive. Patient's swelling went away as we waited for the urine cultures to come back. Once the MRI came back, I consulted IR to possibly do a kyphoplasty. According to the nurse, the schedule was too packed to do the kyphoplasty inpatient. So, the patient was discharged and instructed to follow up outpatient for a kyphoplasty. She was sent home with antibiotics and will follow up with her urologist for bladder prolapse and PCP in 2 weeks, as well as pain management doctor for her pain pump. She is excited and ready to go home. Dictated by: Liz Reeves NP GREGORY BLACK MD Job#: [id number]
== END 2018-03-09 16:21 | disposition home or self-care (01) | DRG 92 ==
LOC: ER 17:57 → ERHOLD 03-05 00:07 → IMCU 03-05 00:51 → MED/SURG2 03-05 15:29 → OBSVTOIN 03-06 12:46
PROVIDERS: ADMIT Internal Medicine; ATTEND Internal Medicine
DX: G89.29 Other chronic pain (principal); N39.0 Urinary tract infection, site not specified; M79.7 Fibromyalgia; M51.26 Other intervertebral disc displacement, lumbar region; E87.6 Hypokalemia; E78.5 Hyperlipidemia, unspecified; M48.54XD Collapsed vertebra, not elsewhere classified, thoracic region, subsequent encounter for fracture with routine healing; M48.061 Spinal stenosis, lumbar region without neurogenic claudication; B96.20 Unspecified Escherichia coli [E. coli] as the cause of diseases classified elsewhere; Z96.89 Presence of other specified functional implants; F32.9 Major depressive disorder, single episode, unspecified; K59.00 Constipation, unspecified; F41.9 Anxiety disorder, unspecified; M79.662 Pain in left lower leg; M79.661 Pain in right lower leg; F17.210 Nicotine dependence, cigarettes, uncomplicated
CPT/HCPCS: 36415; 51700; 71045; 72148; 74177; 80048; 80053; 81001; 82550; 82553; 82948; 83605; 83735; 83880; 84100; 84443; 84484; 85025; 85610; 85730; 87040; 87086; 87186; 93005; 93306; 93970; 99284; G0378; J1650; J1940; J2543; J7050; Q9967

== ENCOUNTER 2019-05-19 14:28 | Emergency (ER) | payer MEDICARE, OTHER ==
[~2019-05-19] VITALS: Ht 162.6 cm; Wt 94.3 kg
[~2019-05-19 14:28] MED LIST changes: +CEFTIN PO; +DILAUDID2 MG PO
--- OUTSIDE RECORDS SUMMARY | 2019-05-19 14:32 | XMS REPORT | Clinical Summary ---
Author Author [facility] Address Unknown Phone Unavailable Care Team Providers Care Dental Receptionist Name Role Phone Michael Cam Alatorre PCP Allergies No Known Allergies Medications End Date Status Medication Sig Dispensed Refills Start Date Active ALPRAZolam (XANAX) 0.25 Take 0.25 mg 0 MG tablet by mouth as needed for Anxiety. 09/21/2018 atorvastatin (LIPITOR) 40 Take 1 tablet 30 tablet 2 MG tablet (40 mg total) 7 by mouth nightly. 09/21/2018 carvedilol (COREG) 3.125 Take 1 tablet 60 tablet 2 MG tablet (3.125 mg 7 total) by mouth 2 (two) times daily with breakfast and dinner. 09/21/2018 gabapentin (NEURONTIN) Take 1 90 capsule 2 100 MG capsule capsule (100 7 mg total) by mouth 3 (three) times daily. Active Problems Problem Noted Date Other chest pain 09/19/2017 Cellulitis 09/19/2017 Chest pain 09/19/2017 Social History Date Tobacco Use Types Packs/Day Years Used Never Assessed Sex Assigned at Date Recorded Not on file Industry Job Start Date Occupation Not on file Not on file Not on file Travel End Travel History Travel Start No recent travel history available. Last Filed Vital Signs Not on file Plan of Treatment Not on file Results Not on fileafter 05/18/2018 Insurance Payer Benefit Subscriber ID Type Phone Address Plan / Group CARE IMPROVEMENT MEDICARE CARE xxxxxxxxx [facility] CARE IMPROVEMEN T PLUS MEDICAID - MEDICAID MGD [facility] xxxxxxxxx Medicaid CARE COMM STAR Contracted PLAN Advance Directives For more information, please contact: [facility] [address] [place] [address] Date Inactivated Comments Code Status Date Activated 09/21/2017 9:02 PM Full Code 09/19/2017 8:13 PM This code status was determined by: Patient
[2019-05-19] MEDS ORDERED: TETANUS/DIPHTHERIA TOX ADULT 0.5 ML SYR IM ONE (18:15)
[2019-05-19] MEDS ORDERED: CEPHALEXIN 500 MG CAP PO ONE (18:15)
[2019-05-19] MEDS ORDERED: ACETAMINOPHEN 325 MG TAB PO ONE (18:15)
[2019-05-19] MEDS ORDERED: LIDOCAINE HCL 1% LOCAL INJ 20 ML VIAL ONE (18:23)
[2019-05-19] MEDS ORDERED: LIDOCAINE HCL 1% LOCAL INJ 20 ML VIAL INJ ONE (18:30)
--- NOTE | 2019-05-19 19:13 | Diagnostic Imaging Report ---
Radiographs of the right shoulder HISTORY: Pain COMPARISON: None available. FINDINGS: Bones: No acute displaced fracture. Osseous alignment is within normal limits. Joints: Scattered degenerative change. No osseous erosion Soft tissues: The soft tissues appear unremarkable. IMPRESSION: Scattered degenerative change. No osseous erosion Signed by: Dr. Charlie Cain M.D. on 05/19/2019 7:09 PM
--- NOTE | 2019-05-19 19:38 | Diagnostic Imaging Report ---
EXAMINATION: Head CT without contrast. HISTORY:Status post fall. COMPARISON:CT brain from 04/12/2014. TECHNIQUE: Multidetector axial images were obtained from the foramen magnum to the vertex without contrast. The images were reconstructed using brain and bone algorithms. Thin section brain images were reformatted into coronal and sagittal planes. Dose modulation, iterative reconstruction, and/or weight based adjustment of the mA/kV was utilized to reduce the radiation dose to as low as reasonably achievable. Intravenous contrast: None IMAGE QUALITY: Acceptable. FINDINGS: Skull/scalp: Mild right frontal scalp soft tissue edema/hematoma and soft tissue emphysema with focal laceration. No radiopaque foreign body. No acute displaced or depressed calvarial fracture. Parenchyma: No abnormal density. No acute hemorrhage, mass or acute major vascular territorial infarct. Arteries: No density suggestive of thrombosis. Dural sinuses: No abnormal density suggestive of thrombosis. Ventricles: No hydrocephalus or displacement. Extra-axial spaces: No abnormal density. Brain volume: Normal for age. Craniocervical junction: No mass, Chiari malformation, or basilar invagination. Sella: No mass. Paranasal/mastoid sinuses: Imaged portions unremarkable. Incidental finding: Anterior subluxation of left temporomandibular joint remains unchanged. IMPRESSION: 1. Mild right frontal scalp soft tissue edema/hematoma and focal laceration. No acute fracture. 2. No acute posttraumatic intracranial abnormality. Signed by: Dr. Debbie Salmon M.D. on 05/19/2019 7:34 PM
[2019-05-19] MEDS ORDERED: HYDROCODONE/APAP 5MG-325MG TAB PO ONE (21:00)
[2019-05-20 05:06] VITALS: BP 118/76
== END 2019-05-19 21:54 | disposition home or self-care (01) ==
LOC: ER 14:28
DX: S01.81XA Laceration without foreign body of other part of head, initial encounter (principal); M25.511 Pain in right shoulder; W01.0XXA Fall on same level from slipping, tripping and stumbling without subsequent striking against object, initial encounter; Y92.008 Other place in unspecified non-institutional (private) residence as the place of occurrence of the external cause
CPT/HCPCS: 12011; 70450; 73030; 90471; 90714; J2001

== ENCOUNTER → 2020-07-13 | Outpatient (CLI) | payer MEDICARE, OTHER | LOC: MAMMO 13:13 | PROVIDERS: ATTEND Emergency Medicine | DX: Z12.31 Encounter for screening mammogram for malignant neoplasm of breast (principal); M79.605 Pain in left leg; M79.604 Pain in right leg | CPT/HCPCS: 77067; 93970 ==

== ENCOUNTER → 2021-06-21 | Outpatient (CLI) | payer MEDICARE, OTHER | LOC: MAMMO 11:10 | PROVIDERS: ATTEND Internal Medicine | DX: N64.4 Mastodynia (principal) | CPT/HCPCS: 77066 ==

== ENCOUNTER 2021-11-29 09:57 | Inpatient (IN) | payer MEDICARE, OTHER ==
[~2021-11-29] VITALS: Ht 162.6 cm; Wt 104.0 kg
[2021-11-29 10:44] LABS: BASOPHILS % 0.2 % (0.0-1.0); EOSINOPHILS % 0.1 % (0.0-6.0); HEMATOCRIT 49.1 % (34.2-44.1); HEMOGLOBIN 15.3 g/dL (12.0-16.0); LYMPHOCYTES # (AUTO) 1.3 (1.0-3.2); LYMPHOCYTES % 7.9 % (18.0-39.1); MEAN CORPUSCULAR HEMOGLOBIN 26.8 pg (28-32); MEAN CORPUSCULAR HGB CONC 31.2 g/dL (31-35); MEAN CORPUSCULAR VOLUME 86.1 fL (81-99); MONOCYTES # (AUTO) 0.7 (0.2-0.8); NEUTROPHILS # (AUTO) 14.7 (2.1-6.9); NEUTROPHILS % 87.4 % (38.7-80.0); PLATELET COUNT 225 x10e3/uL (140-360); RED CELL DISTRIBUTION WIDTH 14.7 % (11.7-14.4)
[2021-11-29 10:45] LABS: CLARITY,URINE SL CLOUDY (CLEAR); COLOR,URINE YELLOW (YELLOW)
[2021-11-29 10:46] LABS: KETONES,URINE 1+ (NEGATIVE); LEUKOCYTE ESTERASE ,URINE NEGATIVE (NEGATIVE); NITRITE,URINE NEGATIVE (NEGATIVE); PROTEIN,URINE DIPSTICK 2+ (NEGATIVE); URINE UROBILINOGEN 0.2 mg/dL (0.2 - 1)
[2021-11-29] MEDS ORDERED: KETOROLAC TROMETHAMINE 30 MG/ML VIAL IV STA (10:54)
[2021-11-29 11:02] LABS: ALBUMIN 4.2 g/dL (3.5-5.0); ALBUMIN/GLOBULIN RATIO 1.2 (0.8-2.0); ANION GAP 16.9 mmol/L (8-16); CALCIUM 9.6 mg/dL (8.4-10.2); CREATININE, SERUM 0.84 mg/dL (0.57-1.11); POTASSIUM 3.9 mmol/L (3.5-5.1)
[2021-11-29] MEDS ORDERED: CEFTRIAXONE 1 GM VIAL IV ONE (11:30)
[2021-11-29 11:36] LABS: BACTERIA,URINE MANY /HPF; EPITHELIAL CELLS,URINE FEW /LPF
[2021-11-29] MEDS ORDERED: LACTATED RINGER'S 1,000 ML INJ ONE ×2 (12:00)
[2021-11-29] MEDS ORDERED: CEFTRIAXONE 1 GM in SODIUM CHLORIDE 0.9% 50ML 50 ML IV ONE (12:00)
[2021-11-29 13:59] VITALS: BP 130/96
[2021-11-29 14:00] VITALS: BP 130/96
[2021-11-29] MEDS: SODIUM CHLORIDE 0.9% 1000ML 1,000 ML IV SCH ×2 (14:59→21:54)
[2021-11-29 15:13] VITALS: BP 132/78
[2021-11-29] MEDS: BUSPIRONE HCL 5 MG TAB PO SCH (17:47)
[2021-11-29 20:46] VITALS: BP 112/73
[2021-11-29 21:00] VITALS: BP 112/73
[2021-11-29] MEDS: TIZANIDINE HCL 4 MG TAB PO SCH (21:41)
[2021-11-30] VITALS (9 sets, daily range): BP systolic 97–126; BP diastolic 56–97
[2021-11-30] MEDS: SODIUM CHLORIDE 0.9% 1000ML 1,000 ML IV SCH ×3 (05:56→20:50)
[2021-11-30 06:19] LABS: BASOPHILS % 0.4 % (0.0-1.0); EOSINOPHILS # (AUTO) 0.2 (0.0-0.4); EOSINOPHILS % 2.4 % (0.0-6.0); HEMATOCRIT 39.7 % (34.2-44.1); HEMOGLOBIN 12.2 g/dL (12.0-16.0); LYMPHOCYTES # (AUTO) 2.9 (1.0-3.2); LYMPHOCYTES % 34.5 % (18.0-39.1); MEAN CORPUSCULAR HEMOGLOBIN 26.5 pg (28-32); MEAN CORPUSCULAR HGB CONC 30.7 g/dL (31-35); MEAN CORPUSCULAR VOLUME 86.1 fL (81-99); MONOCYTES # (AUTO) 0.8 (0.2-0.8); MONOCYTES % 9.5 % (4.4-11.3); NEUTROPHILS # (AUTO) 4.5 (2.1-6.9); PLATELET COUNT 230 x10e3/uL (140-360); RED BLOOD COUNT 4.61 x10e6/uL (3.6-5.1); RED CELL DISTRIBUTION WIDTH 15.1 % (11.7-14.4)
[2021-11-30 06:37] LABS: ANION GAP 13.6 mmol/L (8-16); CALCIUM 8.6 mg/dL (8.4-10.2); CREATININE, SERUM 0.99 mg/dL (0.57-1.11); POTASSIUM 3.6 mmol/L (3.5-5.1)
[2021-11-30 06:39] LABS: CHOL/HDL RATIO 5.8 (3.0-3.6)
[2021-11-30] MEDS: CEFTRIAXONE 2 GM in SODIUM CHLORIDE 0.9% 100 ML IV SCH (08:14)
[2021-11-30] MEDS: BUSPIRONE HCL 5 MG TAB PO SCH ×2 (08:14→18:30)
[2021-11-30] MEDS: FAMOTIDINE 20 MG TAB PO SCH (08:15)
[2021-11-30] MEDS: TIZANIDINE HCL 4 MG TAB PO SCH ×3 (08:15→20:50)
[2021-11-30] MEDS: ESCITALOPRAM OXALATE 10 MG TAB PO SCH (08:15)
[2021-11-30] MEDS ORDERED: HYDROMORPHONE HCL 2 MG TAB PO PRN (20:30)
[2021-11-30] MEDS: HYDROMORPHONE 1MG/1ML INJ IV PRN (20:50)
[2021-12-01] VITALS (17 sets, daily range): BP systolic 76–155; BP diastolic 56–102
[2021-12-01] MEDS: TIZANIDINE HCL 4 MG TAB PO SCH ×3 (01:30→22:51)
[2021-12-01] MEDS: SODIUM CHLORIDE 0.9% 1000ML 1,000 ML IV SCH (06:06)
[2021-12-01 07:34] LABS: BASOPHILS % 0.2 % (0.0-1.0); EOSINOPHILS # (AUTO) 0.2 (0.0-0.4); EOSINOPHILS % 2.7 % (0.0-6.0); HEMATOCRIT 38.6 % (34.2-44.1); HEMOGLOBIN 11.7 g/dL (12.0-16.0); LYMPHOCYTES # (AUTO) 3.2 (1.0-3.2); LYMPHOCYTES % 37.8 % (18.0-39.1); MEAN CORPUSCULAR HGB CONC 30.3 g/dL (31-35); MEAN CORPUSCULAR VOLUME 88.9 fL (81-99); MONOCYTES # (AUTO) 0.6 (0.2-0.8); MONOCYTES % 7.3 % (4.4-11.3); NEUTROPHILS # (AUTO) 4.4 (2.1-6.9); NEUTROPHILS % 51.8 % (38.7-80.0); PLATELET COUNT 220 x10e3/uL (140-360); RED BLOOD COUNT 4.34 x10e6/uL (3.6-5.1)
[2021-12-01 07:58] LABS: ANION GAP 11.6 mmol/L (8-16); CALCIUM 8.3 mg/dL (8.4-10.2); CREATININE, SERUM 0.82 mg/dL (0.57-1.11); PHOSPHORUS 3.1 MG/DL (2.3-4.7); POTASSIUM 3.6 mmol/L (3.5-5.1)
[2021-12-01] MEDS: BUSPIRONE HCL 5 MG TAB PO SCH ×2 (08:21→10:25)
[2021-12-01] MEDS: CEFTRIAXONE 2 GM in SODIUM CHLORIDE 0.9% 100 ML IV SCH (08:21)
[2021-12-01] MEDS: FAMOTIDINE 20 MG TAB PO SCH (08:21)
[2021-12-01] MEDS: ESCITALOPRAM OXALATE 10 MG TAB PO SCH (08:21)
[2021-12-01] MEDS: HYDROMORPHONE 1MG/1ML INJ IV PRN (08:22)
[2021-12-01] MEDS ORDERED: FAMOTIDINE 20 MG/2 ML VIAL IV STA (08:49)
[2021-12-01] MEDS ORDERED: NALOXONE HCL INJ 0.4 MG/ML AMP ONE ×2 (08:53→20:00)
[2021-12-01] MEDS ORDERED: METHYLPREDNISOLONE SOD SUCC 125 MG/2ML VIAL ONE (08:56)
[2021-12-01] MEDS ORDERED: FAMOTIDINE 20 MG/2 ML VIAL IV ONE (08:57)
[2021-12-01] MEDS ORDERED: METHYLPREDNISOLONE SOD SUCC 125 MG/2ML VIAL IV ONE (09:00)
[2021-12-01] MEDS ORDERED: ALBUTEROL/IPRATROPIUM 3 ML NEB NEB ONE ×2 (09:00→09:30)
[2021-12-01] MEDS ORDERED: LORAZEPAM INJ 2 MG/ML VIAL IV ONE (09:00)
[2021-12-01] MEDS ORDERED: LORAZEPAM INJ 2 MG/ML VIAL ONE (09:01)
[2021-12-01] MEDS ORDERED: FUROSEMIDE INJ 10 MG/ML 4 ML VIAL ONE ×2 (09:16→09:51)
[2021-12-01] MEDS ORDERED: ALBUTEROL/IPRATROPIUM 3 ML NEB ONE (09:25)
[2021-12-01] MEDS ORDERED: SODIUM BICARBONATE 8.4% SYRING 50 ML ONE (09:35)
[2021-12-01] MEDS ORDERED: NALOXONE HCL INJ 0.4 MG/ML AMP IV PRN (09:45)
[2021-12-01 09:53] LABS: ABG HCO3 18 mmol/L (22-26); ABG PCO2 46 mmHg (35-45); ABG PO2 57 mmHg (80-105); ABG TCO2 20
[2021-12-01] MEDS ORDERED: SODIUM BICARBONATE 8.4% INJ 50 ML SYR IV ONE (10:00)
[2021-12-01 10:06] LABS: BASOPHILS # (AUTO) 0.1 (0.0-0.1); BASOPHILS % 0.4 % (0.0-1.0); EOSINOPHILS # (AUTO) 0.3 (0.0-0.4); EOSINOPHILS % 1.7 % (0.0-6.0); HEMATOCRIT 44.3 % (34.2-44.1); LYMPHOCYTES # (AUTO) 7.7 (1.0-3.2); LYMPHOCYTES % 38.4 % (18.0-39.1); MEAN CORPUSCULAR HGB CONC 29.3 g/dL (31-35); MEAN CORPUSCULAR VOLUME 91.9 fL (81-99); MONOCYTES # (AUTO) 0.8 (0.2-0.8); MONOCYTES % 3.7 % (4.4-11.3); NEUTROPHILS # (AUTO) 11.1 (2.1-6.9); NEUTROPHILS % 55.1 % (38.7-80.0); PLATELET COUNT 285 x10e3/uL (140-360); RED BLOOD COUNT 4.82 x10e6/uL (3.6-5.1); RED CELL DISTRIBUTION WIDTH 15.2 % (11.7-14.4)
[2021-12-01] MEDS: ONDANSETRON HCL INJ 2MG/ML 2ML 2 MG/ML VIAL IV PRN (10:23)
[2021-12-01 10:34] LABS: ABG HCO3 22 mmol/L (22-26); ABG PCO2 41 mmHg (35-45); ABG PH 7.33 (7.35-7.45); ABG PO2 350 mmHg (80-105); ABG TCO2 23
[2021-12-01 10:37] LABS: MAGNESIUM 1.9 MG/DL (1.3-2.1); PHOSPHORUS 4.8 MG/DL (2.3-4.7)
[2021-12-01] MEDS: MEROPENEM 1 GM in SODIUM CHLORIDE 0.9% 100 ML IV SCH ×2 (10:42→22:51)
[2021-12-01 10:45] LABS: ALBUMIN 3.5 g/dL (3.5-5.0); ALBUMIN/GLOBULIN RATIO 1.3 (0.8-2.0); ANION GAP 20.7 mmol/L (8-16); CALCIUM 8.8 mg/dL (8.4-10.2); CREATININE, SERUM 1.01 mg/dL (0.57-1.11); POTASSIUM 3.7 mmol/L (3.5-5.1)
[2021-12-01 11:18] LABS: CREATINE KINASE MB 8.1 ng/mL (0-5.0)
[2021-12-01] MEDS ORDERED: MIDAZOLAM HCL 2 MG/2 ML VIAL ONE (12:13)
[2021-12-01 13:15] LABS: EOSINOPHILS % (MANUAL) 1 % (0-7); LYMPHOCYTES % (MANUAL) 46 % (19-48); MONOCYTES % (MANUAL) 4 % (3.4-9.0); NEUTROPHILS % (MANUAL) 48 % (40-74); PLATELET ESTIMATE ADEQUATE; PLATELET MORPHOLOGY COMMENT NORMAL; PROMYELOCYTES % (MANUAL) 1 % (0-0); RBC MORPHOLOGY COMMENT NORMAL
[2021-12-01] MEDS: FUROSEMIDE INJ 10 MG/ML 4 ML VIAL IV SCH (14:30)
[2021-12-01] MEDS: ASPIRIN 81 MG CHEW TAB PO SCH (15:09)
[2021-12-01] MEDS: VALSARTAN/SACUBITRIL 24MG/26MG 1 EA TAB PO SCH (15:10)
[2021-12-01] MEDS: CARVEDILOL 3.125 MG TAB PO SCH (17:58)
[2021-12-01] MEDS ORDERED: NALOXONE HCL INJ 0.4 MG/ML AMP IV ONE (19:45)
[2021-12-01] MEDS: ATORVASTATIN 40 MG TAB PO SCH (22:50)
[2021-12-01] MEDS: ENOXAPARIN SOD INJ 60 MG/0.6 ML SYR SC SCH ×2 (22:50→22:51)
[2021-12-02] VITALS (26 sets, daily range): BP systolic 81–146; BP diastolic 58–97
[2021-12-02] MEDS: VALSARTAN/SACUBITRIL 24MG/26MG 1 EA TAB PO SCH ×2 (05:56→13:33)
[2021-12-02] MEDS: MEROPENEM 1 GM in SODIUM CHLORIDE 0.9% 100 ML IV SCH ×2 (06:11→14:09)
[2021-12-02] MEDS: FUROSEMIDE INJ 10 MG/ML 4 ML VIAL IV SCH (08:50)
[2021-12-02] MEDS: BUSPIRONE HCL 5 MG TAB PO SCH ×2 (08:50→17:02)
[2021-12-02] MEDS: ASPIRIN 81 MG CHEW TAB PO SCH (08:50)
[2021-12-02] MEDS: TIZANIDINE HCL 4 MG TAB PO SCH ×3 (08:51→20:39)
[2021-12-02] MEDS: CARVEDILOL 3.125 MG TAB PO SCH ×2 (08:51→15:50)
[2021-12-02] MEDS: FAMOTIDINE 20 MG TAB PO SCH (08:51)
[2021-12-02] MEDS: ENOXAPARIN SOD INJ 60 MG/0.6 ML SYR SC SCH ×2 (08:51→20:40)
[2021-12-02] MEDS: ESCITALOPRAM OXALATE 10 MG TAB PO SCH (08:51)
[2021-12-02 09:13] LABS: BASOPHILS % 0.2 % (0.0-1.0); HEMATOCRIT 48.6 % (34.2-44.1); HEMOGLOBIN 14.3 g/dL (12.0-16.0); LYMPHOCYTES # (AUTO) 2.1 (1.0-3.2); LYMPHOCYTES % 16.3 % (18.0-39.1); MEAN CORPUSCULAR HEMOGLOBIN 26.7 pg (28-32); MEAN CORPUSCULAR HGB CONC 29.4 g/dL (31-35); MEAN CORPUSCULAR VOLUME 90.8 fL (81-99); MONOCYTES # (AUTO) 0.8 (0.2-0.8); MONOCYTES % 6.2 % (4.4-11.3); NEUTROPHILS % 76.5 % (38.7-80.0); PLATELET COUNT 215 x10e3/uL (140-360); RED BLOOD COUNT 5.35 x10e6/uL (3.6-5.1); RED CELL DISTRIBUTION WIDTH 15.3 % (11.7-14.4)
[2021-12-02 09:38] LABS: ALBUMIN 3.7 g/dL (3.5-5.0); ALBUMIN/GLOBULIN RATIO 1.2 (0.8-2.0); CALCIUM 9.1 mg/dL (8.4-10.2); CREATININE, SERUM 0.96 mg/dL (0.57-1.11)
[2021-12-02] MEDS ORDERED: ATROPINE SULFATE 0.1 MG/ML 10ML SYR IV PRN (19:15)
[2021-12-02] MEDS: ATORVASTATIN 40 MG TAB PO SCH (20:39)
[2021-12-02] MEDS ORDERED: MAGNESIUM SULF 1GRAM/DEXTROSE 100 ML IV ONE (20:45)
[2021-12-02] MEDS: CEFTRIAXONE 1 GM in SODIUM CHLORIDE 0.9% 50ML 50 ML IV SCH (21:57)
[2021-12-03] VITALS (24 sets, daily range): BP systolic 80–161; BP diastolic 45–99
[2021-12-03] MEDS: TIZANIDINE HCL 4 MG TAB PO SCH ×4 (03:02→21:57)
[2021-12-03 07:47] LABS: BASOPHILS % 0.2 % (0.0-1.0); EOSINOPHILS # (AUTO) 0.1 (0.0-0.4); EOSINOPHILS % 0.8 % (0.0-6.0); HEMATOCRIT 44.9 % (34.2-44.1); HEMOGLOBIN 13.6 g/dL (12.0-16.0); LYMPHOCYTES # (AUTO) 3.3 (1.0-3.2); LYMPHOCYTES % 27.3 % (18.0-39.1); MEAN CORPUSCULAR HEMOGLOBIN 26.7 pg (28-32); MEAN CORPUSCULAR HGB CONC 30.3 g/dL (31-35); MEAN CORPUSCULAR VOLUME 88.2 fL (81-99); MONOCYTES # (AUTO) 0.7 (0.2-0.8); NEUTROPHILS # (AUTO) 7.9 (2.1-6.9); NEUTROPHILS % 65.1 % (38.7-80.0); PLATELET COUNT 200 x10e3/uL (140-360); RED BLOOD COUNT 5.09 x10e6/uL (3.6-5.1); RED CELL DISTRIBUTION WIDTH 14.6 % (11.7-14.4)
[2021-12-03] MEDS ORDERED: LIDOCAINE HCL 2% LOCAL 20 ML VIAL ONE (07:56)
[2021-12-03] MEDS ORDERED: HEPARIN SOD/SOD CHLORIDE 2,000 ML ONE (07:57)
[2021-12-03] MEDS ORDERED: IOPAMIDOL 370 MG/ML 200 ML INFUS..BTL INJ ONE (07:57)
[2021-12-03 08:11] LABS: ALBUMIN 3.4 g/dL (3.5-5.0); ALBUMIN/GLOBULIN RATIO 1.3 (0.8-2.0); ANION GAP 12.4 mmol/L (8-16); CALCIUM 8.6 mg/dL (8.4-10.2); CREATININE, SERUM 0.87 mg/dL (0.57-1.11); POTASSIUM 3.4 mmol/L (3.5-5.1)
[2021-12-03] MEDS: CARVEDILOL 3.125 MG TAB PO SCH ×2 (09:00→17:00)
[2021-12-03] MEDS ORDERED: VERAPAMIL HCL 2.5 MG/ML 2 ML VIAL ONE (09:22)
[2021-12-03] MEDS ORDERED: MIDAZOLAM HCL 2 MG/2 ML VIAL ONE (09:22)
[2021-12-03] MEDS ORDERED: FENTANYL CITRATE/PF 100MCG/2 ML INJ ONE (09:22)
[2021-12-03] MEDS ORDERED: SODIUM CHLORIDE 0.9% 1000ML 1,000 ML ONE (09:22)
[2021-12-03] MEDS: CEFTRIAXONE 1 GM in SODIUM CHLORIDE 0.9% 50ML 50 ML IV SCH ×2 (10:18→21:57)
[2021-12-03] MEDS: ASPIRIN 81 MG CHEW TAB PO SCH (10:18)
[2021-12-03] MEDS: BUSPIRONE HCL 5 MG TAB PO SCH ×2 (10:18→17:34)
[2021-12-03] MEDS: FAMOTIDINE 20 MG TAB PO SCH (10:19)
[2021-12-03] MEDS: ENOXAPARIN SOD INJ 60 MG/0.6 ML SYR SC SCH ×2 (10:19→21:57)
[2021-12-03] MEDS: ESCITALOPRAM OXALATE 10 MG TAB PO SCH (10:19)
[2021-12-04] VITALS (25 sets, daily range): BP systolic 103–213; BP diastolic 8–114
[2021-12-04] MEDS: TIZANIDINE HCL 4 MG TAB PO SCH ×4 (04:19→20:37)
[2021-12-04 05:04] LABS: BASOPHILS % 0.3 % (0.0-1.0); EOSINOPHILS # (AUTO) 0.1 (0.0-0.4); EOSINOPHILS % 1.2 % (0.0-6.0); HEMATOCRIT 46.5 % (34.2-44.1); HEMOGLOBIN 14.3 g/dL (12.0-16.0); LYMPHOCYTES # (AUTO) 2.6 (1.0-3.2); MEAN CORPUSCULAR HEMOGLOBIN 27.2 pg (28-32); MEAN CORPUSCULAR HGB CONC 30.8 g/dL (31-35); MEAN CORPUSCULAR VOLUME 88.4 fL (81-99); MONOCYTES # (AUTO) 0.8 (0.2-0.8); MONOCYTES % 7.3 % (4.4-11.3); NEUTROPHILS # (AUTO) 6.7 (2.1-6.9); NEUTROPHILS % 65.7 % (38.7-80.0); PLATELET COUNT 181 x10e3/uL (140-360); RED BLOOD COUNT 5.26 x10e6/uL (3.6-5.1); RED CELL DISTRIBUTION WIDTH 14.6 % (11.7-14.4)
[2021-12-04 05:15] LABS: INR 0.95; PROTHROMBIN TIME 13.4 seconds (11.9-14.5)
[2021-12-04 05:37] LABS: ALBUMIN 3.6 g/dL (3.5-5.0); ALBUMIN/GLOBULIN RATIO 1.2 (0.8-2.0); ANION GAP 16.5 mmol/L (8-16); CALCIUM 11.1 mg/dL (8.4-10.2); CREATININE, SERUM 0.95 mg/dL (0.57-1.11); POTASSIUM 3.5 mmol/L (3.5-5.1)
[2021-12-04] MEDS: ASPIRIN 81 MG CHEW TAB PO SCH (08:47)
[2021-12-04] MEDS: ESCITALOPRAM OXALATE 10 MG TAB PO SCH (08:47)
[2021-12-04] MEDS: CARVEDILOL 3.125 MG TAB PO SCH ×2 (08:47→17:03)
[2021-12-04] MEDS: BUSPIRONE HCL 5 MG TAB PO SCH ×2 (08:47→17:01)
[2021-12-04] MEDS: ENOXAPARIN SOD INJ 60 MG/0.6 ML SYR SC SCH ×2 (08:47→20:37)
[2021-12-04] MEDS: FAMOTIDINE 20 MG TAB PO SCH (08:47)
[2021-12-04] MEDS: CEFTRIAXONE 1 GM in SODIUM CHLORIDE 0.9% 50ML 50 ML IV SCH ×2 (08:47→20:54)
[2021-12-04] MEDS: ACETAMINOPHEN 325 MG TAB PO PRN (19:38)
[2021-12-04] MEDS: ONDANSETRON HCL INJ 2MG/ML 2ML 2 MG/ML VIAL IV PRN (19:44)
[2021-12-04] MEDS ORDERED: HYDROCODONE/APAP 10MG-325MG TAB PO ONE (20:15)
[2021-12-04] MEDS: HYDRALAZINE HCL 20 MG/ML VIAL IV PRN ×2 (21:00→22:21)
[2021-12-05] VITALS (13 sets, daily range): BP systolic 102–170; BP diastolic 72–108
[2021-12-05] MEDS: TIZANIDINE HCL 4 MG TAB PO SCH ×4 (04:34→21:00)
[2021-12-05] MEDS ORDERED: SODIUM CHLORIDE 0.9% 250ML 250 ML ONE (08:30)
[2021-12-05] MEDS: ENOXAPARIN SOD INJ 60 MG/0.6 ML SYR SC SCH ×2 (08:48→21:00)
[2021-12-05] MEDS: ASPIRIN 81 MG CHEW TAB PO SCH (08:48)
[2021-12-05] MEDS: ESCITALOPRAM OXALATE 10 MG TAB PO SCH (08:48)
[2021-12-05] MEDS: CARVEDILOL 3.125 MG TAB PO SCH ×2 (08:48→16:32)
[2021-12-05] MEDS: FAMOTIDINE 20 MG TAB PO SCH (08:48)
[2021-12-05] MEDS: BUSPIRONE HCL 5 MG TAB PO SCH ×2 (08:48→16:32)
[2021-12-05] MEDS: CEFTRIAXONE 1 GM in SODIUM CHLORIDE 0.9% 50ML 50 ML IV SCH ×2 (08:49→21:00)
[2021-12-05] MEDS: ACETAMINOPHEN 325 MG TAB PO PRN ×2 (11:21→23:00)
[2021-12-05] MEDS: ONDANSETRON HCL INJ 2MG/ML 2ML 2 MG/ML VIAL IV PRN (11:21)
[2021-12-05] MEDS: LOSARTAN POTASSIUM 25 MG TAB PO SCH (12:23)
[2021-12-05] MEDS ORDERED: ACETAMIN/BUTALBITAL/CAFFEINE TAB PO ONE (13:00)
[2021-12-06] VITALS (8 sets, daily range): BP systolic 99–149; BP diastolic 54–82
[2021-12-06] MEDS: TIZANIDINE HCL 4 MG TAB PO SCH ×4 (04:14→20:12)
[2021-12-06 05:54] LABS: BASOPHILS % 0.3 % (0.0-1.0); EOSINOPHILS # (AUTO) 0.2 (0.0-0.4); EOSINOPHILS % 3.1 % (0.0-6.0); HEMATOCRIT 43.1 % (34.2-44.1); HEMOGLOBIN 13.3 g/dL (12.0-16.0); LYMPHOCYTES # (AUTO) 2.9 (1.0-3.2); LYMPHOCYTES % 38.5 % (18.0-39.1); MEAN CORPUSCULAR HGB CONC 30.9 g/dL (31-35); MEAN CORPUSCULAR VOLUME 87.6 fL (81-99); MONOCYTES # (AUTO) 0.8 (0.2-0.8); MONOCYTES % 11.4 % (4.4-11.3); NEUTROPHILS # (AUTO) 3.4 (2.1-6.9); NEUTROPHILS % 46.4 % (38.7-80.0); PLATELET COUNT 187 x10e3/uL (140-360); RED BLOOD COUNT 4.92 x10e6/uL (3.6-5.1); RED CELL DISTRIBUTION WIDTH 15.1 % (11.7-14.4)
[2021-12-06 06:34] LABS: ALBUMIN 3.6 g/dL (3.5-5.0); ALBUMIN/GLOBULIN RATIO 1.4 (0.8-2.0); ANION GAP 16.1 mmol/L (8-16); CREATININE, SERUM 0.82 mg/dL (0.57-1.11); POTASSIUM 3.1 mmol/L (3.5-5.1)
[2021-12-06] MEDS ORDERED: EPINEPHRINE HCL 1:1000 1ML 1 MG/ML AMP ONE (06:58)
[2021-12-06] MEDS: ASPIRIN 81 MG CHEW TAB PO SCH (08:44)
[2021-12-06] MEDS: CEFTRIAXONE 1 GM in SODIUM CHLORIDE 0.9% 50ML 50 ML IV SCH ×2 (08:44→20:12)
[2021-12-06] MEDS: BUSPIRONE HCL 5 MG TAB PO SCH ×2 (08:44→16:27)
[2021-12-06] MEDS: ESCITALOPRAM OXALATE 10 MG TAB PO SCH (08:45)
[2021-12-06] MEDS: CARVEDILOL 3.125 MG TAB PO SCH ×2 (08:45→16:27)
[2021-12-06] MEDS: FAMOTIDINE 20 MG TAB PO SCH (08:45)
[2021-12-06] MEDS: ENOXAPARIN SOD INJ 60 MG/0.6 ML SYR SC SCH ×2 (08:46→20:12)
[2021-12-06] MEDS: LOSARTAN POTASSIUM 25 MG TAB PO SCH (09:26)
[2021-12-06] MEDS ORDERED: POTASSIUM CHLORIDE 20 MEQ TAB CR PO ONE (09:30)
[2021-12-07] VITALS (8 sets, daily range): BP systolic 120–177; BP diastolic 67–92
[2021-12-07] MEDS: TIZANIDINE HCL 4 MG TAB PO SCH ×4 (03:37→20:56)
[2021-12-07 05:39] LABS: BASOPHILS % 0.3 % (0.0-1.0); EOSINOPHILS # (AUTO) 0.3 (0.0-0.4); EOSINOPHILS % 3.3 % (0.0-6.0); HEMATOCRIT 45.4 % (34.2-44.1); LYMPHOCYTES # (AUTO) 2.9 (1.0-3.2); MEAN CORPUSCULAR HEMOGLOBIN 27.2 pg (28-32); MEAN CORPUSCULAR HGB CONC 30.8 g/dL (31-35); MEAN CORPUSCULAR VOLUME 88.2 fL (81-99); MONOCYTES % 10.9 % (4.4-11.3); NEUTROPHILS # (AUTO) 5.1 (2.1-6.9); NEUTROPHILS % 54.2 % (38.7-80.0); PLATELET COUNT 235 x10e3/uL (140-360); RED BLOOD COUNT 5.15 x10e6/uL (3.6-5.1); RED CELL DISTRIBUTION WIDTH 15.2 % (11.7-14.4)
[2021-12-07 06:00] LABS: ALBUMIN 3.8 g/dL (3.5-5.0); ALBUMIN/GLOBULIN RATIO 1.4 (0.8-2.0); ANION GAP 16.3 mmol/L (8-16); CALCIUM 9.7 mg/dL (8.4-10.2); CREATININE, SERUM 0.74 mg/dL (0.57-1.11); POTASSIUM 3.3 mmol/L (3.5-5.1)
[2021-12-07] MEDS: HYDRALAZINE HCL 20 MG/ML VIAL IV PRN (06:09)
[2021-12-07] MEDS: ONDANSETRON HCL INJ 2MG/ML 2ML 2 MG/ML VIAL IV PRN (08:56)
[2021-12-07] MEDS: CEFTRIAXONE 1 GM in SODIUM CHLORIDE 0.9% 50ML 50 ML IV SCH ×2 (08:56→20:56)
[2021-12-07] MEDS: BUSPIRONE HCL 5 MG TAB PO SCH ×2 (08:57→17:24)
[2021-12-07] MEDS: ASPIRIN 81 MG CHEW TAB PO SCH (08:57)
[2021-12-07] MEDS: CARVEDILOL 3.125 MG TAB PO SCH ×2 (08:59→17:24)
[2021-12-07] MEDS ORDERED: POTASSIUM CHLORIDE 20 MEQ TAB CR PO ONE (09:00)
[2021-12-07] MEDS: LOSARTAN POTASSIUM 25 MG TAB PO SCH (09:00)
[2021-12-07] MEDS: ENOXAPARIN SOD INJ 60 MG/0.6 ML SYR SC SCH ×2 (09:01→20:56)
[2021-12-07] MEDS: ESCITALOPRAM OXALATE 10 MG TAB PO SCH (09:01)
[2021-12-07] MEDS: FAMOTIDINE 20 MG TAB PO SCH (09:01)
[2021-12-07 17:45] LABS: CLARITY,URINE CLEAR (CLEAR); COLOR,URINE YELLOW (YELLOW); KETONES,URINE 1+ (NEGATIVE); LEUKOCYTE ESTERASE ,URINE NEGATIVE (NEGATIVE); NITRITE,URINE NEGATIVE (NEGATIVE); PROTEIN,URINE DIPSTICK NEGATIVE (NEGATIVE); URINE UROBILINOGEN 0.2 mg/dL (0.2 - 1)
[2021-12-07 17:54] LABS: RBC,URINE >50 /HPF (0-5)
[2021-12-07 17:55] LABS: BACTERIA,URINE MODERATE /HPF; EPITHELIAL CELLS,URINE FEW /LPF; TRANSITIONAL EPI CELLS,URINE FEW
[2021-12-08] VITALS (8 sets, daily range): BP systolic 111–168; BP diastolic 59–92
[2021-12-08] MEDS: TIZANIDINE HCL 4 MG TAB PO SCH ×4 (03:00→21:15)
[2021-12-08 07:18] LABS: BASOPHILS % 0.3 % (0.0-1.0); EOSINOPHILS # (AUTO) 0.3 (0.0-0.4); EOSINOPHILS % 3.5 % (0.0-6.0); HEMATOCRIT 46.4 % (34.2-44.1); LYMPHOCYTES # (AUTO) 2.3 (1.0-3.2); LYMPHOCYTES % 29.8 % (18.0-39.1); MEAN CORPUSCULAR HEMOGLOBIN 27.1 pg (28-32); MEAN CORPUSCULAR HGB CONC 30.2 g/dL (31-35); MEAN CORPUSCULAR VOLUME 89.7 fL (81-99); MONOCYTES # (AUTO) 0.9 (0.2-0.8); MONOCYTES % 12.2 % (4.4-11.3); NEUTROPHILS # (AUTO) 4.1 (2.1-6.9); NEUTROPHILS % 53.9 % (38.7-80.0); PLATELET COUNT 219 x10e3/uL (140-360); RED BLOOD COUNT 5.17 x10e6/uL (3.6-5.1); RED CELL DISTRIBUTION WIDTH 15.7 % (11.7-14.4)
[2021-12-08 07:58] LABS: ALBUMIN 3.8 g/dL (3.5-5.0); ALBUMIN/GLOBULIN RATIO 1.4 (0.8-2.0); ANION GAP 15.1 mmol/L (8-16); CALCIUM 9.8 mg/dL (8.4-10.2); CREATININE, SERUM 0.74 mg/dL (0.57-1.11); POTASSIUM 3.1 mmol/L (3.5-5.1)
[2021-12-08] MEDS: FAMOTIDINE 20 MG TAB PO SCH (09:00)
[2021-12-08] MEDS: ASPIRIN 81 MG CHEW TAB PO SCH (09:34)
[2021-12-08] MEDS: BUSPIRONE HCL 5 MG TAB PO SCH ×2 (09:35→17:46)
[2021-12-08] MEDS: CARVEDILOL 3.125 MG TAB PO SCH ×2 (09:35→17:46)
[2021-12-08] MEDS: LOSARTAN POTASSIUM 25 MG TAB PO SCH (09:36)
[2021-12-08] MEDS: ENOXAPARIN SOD INJ 60 MG/0.6 ML SYR SC SCH (09:38)
[2021-12-08] MEDS: ESCITALOPRAM OXALATE 10 MG TAB PO SCH (09:39)
[2021-12-08] MEDS: CEFTRIAXONE 1 GM in SODIUM CHLORIDE 0.9% 50ML 50 ML IV SCH ×2 (09:39→21:15)
[2021-12-08] MEDS ORDERED: POTASSIUM CHLORIDE 20 MEQ TAB CR PO NR (10:43)
[2021-12-08] MEDS ORDERED: COREG3.125 MG PO (10:59)
[2021-12-08] MEDS ORDERED: COZAAR25 MG PO (10:59)
[2021-12-09] VITALS: BP 176/87
[2021-12-09] MEDS ORDERED: DIPHENHYDRAMINE HCL INJ 50 MG/ML VIAL IV PRN (00:30)
[2021-12-09] MEDS ORDERED: DIPHENHYDRAMINE HCL INJ 50 MG/ML VIAL ONE (00:41)
[2021-12-09] MEDS: TIZANIDINE HCL 4 MG TAB PO SCH ×2 (03:02→09:02)
[2021-12-09 04:00] VITALS: BP 131/71
[2021-12-09 06:35] LABS: BASOPHILS % 0.4 % (0.0-1.0); EOSINOPHILS # (AUTO) 0.2 (0.0-0.4); EOSINOPHILS % 3.1 % (0.0-6.0); HEMATOCRIT 43.3 % (34.2-44.1); HEMOGLOBIN 13.5 g/dL (12.0-16.0); LYMPHOCYTES # (AUTO) 2.7 (1.0-3.2); MEAN CORPUSCULAR HEMOGLOBIN 26.9 pg (28-32); MEAN CORPUSCULAR HGB CONC 31.2 g/dL (31-35); MEAN CORPUSCULAR VOLUME 86.3 fL (81-99); MONOCYTES % 12.5 % (4.4-11.3); NEUTROPHILS # (AUTO) 3.8 (2.1-6.9); NEUTROPHILS % 48.6 % (38.7-80.0); PLATELET COUNT 212 x10e3/uL (140-360); RED BLOOD COUNT 5.02 x10e6/uL (3.6-5.1); RED CELL DISTRIBUTION WIDTH 15.5 % (11.7-14.4)
[2021-12-09 07:02] LABS: ALBUMIN 3.8 g/dL (3.5-5.0); ALBUMIN/GLOBULIN RATIO 1.5 (0.8-2.0); ANION GAP 13.3 mmol/L (8-16); CALCIUM 9.3 mg/dL (8.4-10.2); CREATININE, SERUM 0.73 mg/dL (0.57-1.11); POTASSIUM 3.3 mmol/L (3.5-5.1)
[2021-12-09 08:00] VITALS: BP 145/77
[2021-12-09] MEDS ORDERED: POTASSIUM CHLORIDE 20 MEQ TAB CR PO STA (08:37)
[2021-12-09 08:55] VITALS: BP 145/77
[2021-12-09 08:56] LABS: MAGNESIUM 2.1 MG/DL (1.3-2.1); PHOSPHORUS 3.6 MG/DL (2.3-4.7)
[2021-12-09] MEDS: FAMOTIDINE 20 MG TAB PO SCH (09:00)
[2021-12-09] MEDS: ESCITALOPRAM OXALATE 10 MG TAB PO SCH (09:02)
[2021-12-09] MEDS: LOSARTAN POTASSIUM 25 MG TAB PO SCH (09:03)
[2021-12-09] MEDS: CARVEDILOL 3.125 MG TAB PO SCH (09:03)
[2021-12-09] MEDS: CEFTRIAXONE 1 GM in SODIUM CHLORIDE 0.9% 50ML 50 ML IV SCH (09:03)
[2021-12-09] MEDS: BUSPIRONE HCL 5 MG TAB PO SCH (09:03)
[2021-12-09] MEDS: ASPIRIN 81 MG CHEW TAB PO SCH (09:03)
[2021-12-09 12:10] VITALS: BP 159/90
== END 2021-12-09 11:27 | disposition home or self-care (01) | DRG 871 ==
LOC: ER 10:11 → ERHOLD 12:22 → MED/SURG3 13:32 → ICU 12-01 11:26 → MED/SURG2 12-05 07:49
PROVIDERS: ADMIT Internal Medicine; ATTEND Internal Medicine
PROC: 4A023N7 Measurement of Cardiac Sampling and Pressure, Left Heart, Percutaneous Approach (ICD-10-PCS; principal; 2021-12-03)
PROC: B2111ZZ Fluoroscopy of Multiple Coronary Arteries using Low Osmolar Contrast (ICD-10-PCS; 2021-12-03)
PROC: B2151ZZ Fluoroscopy of Left Heart using Low Osmolar Contrast (ICD-10-PCS; 2021-12-03)
DX: A41.51 Sepsis due to Escherichia coli [E. coli] (principal); J96.02 Acute respiratory failure with hypercapnia; J96.01 Acute respiratory failure with hypoxia; I50.23 Acute on chronic systolic (congestive) heart failure; N39.0 Urinary tract infection, site not specified; I51.81 Takotsubo syndrome; E87.4 Mixed disorder of acid-base balance; J44.1 Chronic obstructive pulmonary disease with (acute) exacerbation; M79.7 Fibromyalgia; E11.9 Type 2 diabetes mellitus without complications; Z79.4 Long term (current) use of insulin; J44.9 Chronic obstructive pulmonary disease, unspecified; N81.10 Cystocele, unspecified; F32.A Depression, unspecified; F41.9 Anxiety disorder, unspecified; K21.9 Gastro-esophageal reflux disease without esophagitis; W19.XXXA Unspecified fall, initial encounter; Y93.89 Activity, other specified; Y92.002 Bathroom of unspecified non-institutional (private) residence as the place of occurrence of the external cause; I25.10 Atherosclerotic heart disease of native coronary artery without angina pectoris; N39.46 Mixed incontinence; N95.2 Postmenopausal atrophic vaginitis; D64.9 Anemia, unspecified; E66.9 Obesity, unspecified; Z68.39 Body mass index [BMI] 39.0-39.9, adult; M06.9 Rheumatoid arthritis, unspecified; F17.200 Nicotine dependence, unspecified, uncomplicated; G89.4 Chronic pain syndrome; R44.1 Visual hallucinations; Z97.8 Presence of other specified devices; E83.42 Hypomagnesemia; N20.0 Calculus of kidney; I11.0 Hypertensive heart disease with heart failure
CPT/HCPCS: 36415; 36600; 70450; 71045; 80048; 80053; 80061; 81001; 82550; 82553; 82805; 82948; 83036; 83605; 83735; 83880; 84100; 84484; 85025; 85610; 87040; 87086; 87186; 93005; 93306; 93458; 94799; 96361; 97139; 99152; 99251; 99284; C1887; J0171; J0360; J0696; J1170; J1200; J1650; J1885; J1940; J2001; J2060; J2185; J2250; J2310; J2405; J2930; J3010; J3475; J7030; J7050; J7121; Q9967; U0002

== ENCOUNTER → 2022-05-27 | Day surgery (SDC) | payer MEDICARE ==
[2022-05-24 16:23] LABS: BASOPHILS % 0.4 % (0.0-1.0); EOSINOPHILS # (AUTO) 0.3 (0.0-0.4); EOSINOPHILS % 2.6 % (0.0-6.0); HEMATOCRIT 44.7 % (34.2-44.1); HEMOGLOBIN 13.9 g/dL (12.0-16.0); LYMPHOCYTES # (AUTO) 2.6 (1.0-3.2); LYMPHOCYTES % 24.7 % (18.0-39.1); MEAN CORPUSCULAR HEMOGLOBIN 28.4 pg (28-32); MEAN CORPUSCULAR HGB CONC 31.1 g/dL (31-35); MEAN CORPUSCULAR VOLUME 91.2 fL (81-99); MONOCYTES # (AUTO) 0.8 (0.2-0.8); MONOCYTES % 7.6 % (4.4-11.3); NEUTROPHILS # (AUTO) 6.7 (2.1-6.9); NEUTROPHILS % 64.4 % (38.7-80.0); PLATELET COUNT 229 x10e3/uL (140-360); RED CELL DISTRIBUTION WIDTH 14.3 % (11.7-14.4)
[2022-05-24 16:42] LABS: ANION GAP 15.4 mmol/L (8-16); BLOOD UREA NITROGEN 12 mg/dL (7-26); BUN/CREATININE RATIO 15 (6-25); CARBON DIOXIDE 24 mmol/L (22-29); CHLORIDE 107 mmol/L (98-107); GLUCOSE 75 mg/dL (74-118); POTASSIUM 4.4 mmol/L (3.5-5.1); SODIUM 142 mmol/L (136-145)
[~2022-05-27] MED LIST changes: +ALEVE220 M1; +ATIVAN1 MG PO; +B&O 60MG R/S 60 MG SUPP PR ONE; +CEFTRIAXONE 1 GM VIAL ONE; +COREG3.125 MG PO; +COZAAR25 MG PO; +DEXAMETHASONE SOD PHOS INJ 4 MG/ML SDV ONE; +EPHEDRINE SULFATE INJ 50 MG/ML VIAL ONE; +FENTANYL CITRATE/PF 100MCG/2 ML INJ ONE; +GLYCOPYRROLATE INJ 0.2 MG/ML VIAL ONE; +IOPAMIDOL 610MG/1ML 300 MG/ML VIAL IV ONE; +LIDOCAINE HCL 2% LOCAL INJ 5 ML SDV VIAL INJ ONE; +LOSARTAN POTASS25 MG PO; +MELATONIN3 MG PO; +MIDAZOLAM HCL 2 MG/2 ML VIAL ONE; +ONDANSETRON HCL INJ 2MG/ML 2ML 2 MG/ML VIAL ONE; +PHENAZOPYRIDINE HCL 100 MG TAB ONE; +POVIDONE IODINE 0.05% 0.05 % ML PO ONE; +PREVAGEN; +PROPOFOL IV EMULSION 10 MG/ML 20 ML VIAL ONE; +SEVOFLURANE INHAL SOLN 250 ML PEN BTL ONE; +ZYRTEC10 M3 PO
[2022-05-27 08:40] VITALS: BP 180/97
== END | disposition home or self-care (01) ==
LOC: OR 05:30
PROVIDERS: ATTEND Urology
DX: N30.10 Interstitial cystitis (chronic) without hematuria (principal); N32.81 Overactive bladder; N81.10 Cystocele, unspecified; N81.6 Rectocele; N36.41 Hypermobility of urethra; N95.2 Postmenopausal atrophic vaginitis; N32.89 Other specified disorders of bladder; N13.8 Other obstructive and reflux uropathy; I10 Essential (primary) hypertension; K21.9 Gastro-esophageal reflux disease without esophagitis; R53.1 Weakness; M79.7 Fibromyalgia; G89.29 Other chronic pain; M41.9 Scoliosis, unspecified; M19.90 Unspecified osteoarthritis, unspecified site; E66.9 Obesity, unspecified; I25.2 Old myocardial infarction; E78.5 Hyperlipidemia, unspecified; Z45.1 Encounter for adjustment and management of infusion pump; F32.A Depression, unspecified; F41.9 Anxiety disorder, unspecified; F17.210 Nicotine dependence, cigarettes, uncomplicated; Z88.6 Allergy status to analgesic agent; Z01.810 Encounter for preprocedural cardiovascular examination; Z01.812 Encounter for preprocedural laboratory examination; Z01.818 Encounter for other preprocedural examination; Z20.822 Contact with and (suspected) exposure to COVID-19; Z79.899 Other long term (current) drug therapy; Z86.718 Personal history of other venous thrombosis and embolism
CPT/HCPCS: 0223U; 36415; 52260; 71046; 74420; 80048; 85025; 87086; 93005; C1758; J0696; J1100; J2001; J2250; J2405; J2704; J3010; Q9967

== ENCOUNTER 2022-06-18 07:50 | Observation (INO) | payer MEDICARE ==
[2022-06-14 15:43] LABS: BASOPHILS % 0.3 % (0.0-1.0); EOSINOPHILS # (AUTO) 0.3 (0.0-0.4); HEMATOCRIT 44.6 % (34.2-44.1); HEMOGLOBIN 14.1 g/dL (12.0-16.0); LYMPHOCYTES # (AUTO) 3.1 (1.0-3.2); MEAN CORPUSCULAR HEMOGLOBIN 28.6 pg (28-32); MEAN CORPUSCULAR HGB CONC 31.6 g/dL (31-35); MEAN CORPUSCULAR VOLUME 90.5 fL (81-99); MONOCYTES # (AUTO) 0.8 (0.2-0.8); MONOCYTES % 8.3 % (4.4-11.3); NEUTROPHILS # (AUTO) 5.9 (2.1-6.9); NEUTROPHILS % 58.2 % (38.7-80.0); PLATELET COUNT 244 x10e3/uL (140-360); RED BLOOD COUNT 4.93 x10e6/uL (3.6-5.1); RED CELL DISTRIBUTION WIDTH 13.9 % (11.7-14.4)
[~2022-06-18] VITALS: Ht 152.4 cm; Wt 89.4 kg
[~2022-06-18 07:50] MED LIST changes: -B&O 60MG R/S 60 MG SUPP PR ONE; -CEFTRIAXONE 1 GM VIAL ONE; +CELECOXIB 200 MG CAP ONE; +DEXAMETHASONE SOD PHOS 10 MG/1 ML VIAL ONE; -DEXAMETHASONE SOD PHOS INJ 4 MG/ML SDV ONE; -EPHEDRINE SULFATE INJ 50 MG/ML VIAL ONE; -FENTANYL CITRATE/PF 100MCG/2 ML INJ ONE; +GABAPENTIN 300 MG CAP ONE; -GLYCOPYRROLATE INJ 0.2 MG/ML VIAL ONE; -IOPAMIDOL 610MG/1ML 300 MG/ML VIAL IV ONE; -LIDOCAINE HCL 2% LOCAL INJ 5 ML SDV VIAL INJ ONE; -MIDAZOLAM HCL 2 MG/2 ML VIAL ONE; -ONDANSETRON HCL INJ 2MG/ML 2ML 2 MG/ML VIAL ONE; -PHENAZOPYRIDINE HCL 100 MG TAB ONE; -POVIDONE IODINE 0.05% 0.05 % ML PO ONE; -PROPOFOL IV EMULSION 10 MG/ML 20 ML VIAL ONE; -SEVOFLURANE INHAL SOLN 250 ML PEN BTL ONE; +SODIUM CHLORIDE 0.9% 500ML 500 ML ONE; +TRANEXAMIC ACID 20 ML ONE; +Vancomycin IV 1,000 MG ONE
[2022-06-18] MEDS ORDERED: ROPIVACAINE 246.25 MG, EPINEPHRINE HCL 1:1000 1ML 0.5 MG, CLONIDINE HCL 0.08 MG, KETORO... INJ ONE ×5 (08:00)
[2022-06-18] MEDS ORDERED: HYDROMORPHONE 2MG/ML 2 MG/ML ML ONE (08:21)
[2022-06-18] MEDS ORDERED: ACETAMINOPHEN 1000 MG/100 ML 100 ML IV ONE (08:21)
[2022-06-18] MEDS ORDERED: DOCUSATE SODIUM 100 MG CAP PO PRN (09:45)
[2022-06-18] MEDS ORDERED: HYDROCODONE/APAP 5MG-325MG TAB PO PRN (09:45)
[2022-06-18] MEDS ORDERED: ACETAMINOPHEN 650 MG SUPP PR PRN (09:45)
[2022-06-18] MEDS ORDERED: DIPHENHYDRAMINE HCL INJ 50 MG/ML VIAL IV PRN (09:45)
[2022-06-18] MEDS ORDERED: ONDANSETRON HCL INJ 2MG/ML 2ML 2 MG/ML VIAL IV PRN (09:45)
[2022-06-18] MEDS ORDERED: FENTANYL CITRATE/PF 100MCG/2 ML INJ ONE ×2 (10:12→12:54)
[2022-06-18] MEDS ORDERED: LIDOCAINE HCL 2% LOCAL INJ 5 ML SDV VIAL INJ ONE (12:27)
[2022-06-18] MEDS ORDERED: PROPOFOL IV EMULSION 10 MG/ML 20 ML VIAL ONE (12:27)
[2022-06-18] MEDS ORDERED: SEVOFLURANE INHAL SOLN 250 ML PEN BTL ONE (12:27)
[2022-06-18] MEDS ORDERED: POVIDONE IODINE 0.05% 0.05 % ML PO ONE (12:27)
[2022-06-18] MEDS ORDERED: ONDANSETRON HCL INJ 2MG/ML 2ML 2 MG/ML VIAL ONE (12:27)
[2022-06-18] MEDS ORDERED: ROCURONIUM BROMIDE 10 MG/ML 5ML VIAL IV ONE (12:27)
[2022-06-18] MEDS ORDERED: DEXAMETHASONE SOD PHOS INJ 4 MG/ML SDV ONE (12:27)
[2022-06-18] MEDS ORDERED: LABETALOL HCL 5 MG/ML 20ML VIAL ONE (12:27)
[2022-06-18] MEDS ORDERED: KETAMINE HCL INJ 50 MG/ML 10 ML VIAL ONE (12:54)
[2022-06-18] MEDS ORDERED: MIDAZOLAM HCL 2 MG/2 ML VIAL ONE (12:54)
[2022-06-18] MEDS ORDERED: HYDROCODONE/APAP 7.5MG-325MG 1 EA TAB ONE (13:28)
[2022-06-18 15:45] VITALS: BP 109/72
[2022-06-18 15:50] VITALS: BP 109/72
[2022-06-18 16:34] VITALS: BP 109/72
[2022-06-18] MEDS: SODIUM CHLORIDE 0.9% 1000ML 1,000 ML IV SCH (17:08)
[2022-06-18] MEDS ORDERED: SODIUM CHLORIDE 0.9% 1000ML 1,000 ML ONE (17:12)
[2022-06-18] MEDS: CELECOXIB 100 MG CAP PO SCH (17:18)
[2022-06-18] MEDS: HYDROCODONE/APAP 7.5MG-325MG 1 EA TAB PO PRN (17:21)
[2022-06-18] MEDS: ASPIRIN 325 MG TAB PO SCH (19:58)
[2022-06-18 20:00] VITALS: BP 105/73
[2022-06-18 20:04] VITALS: BP 105/73
[2022-06-18] MEDS ORDERED: ZOLPIDEM TARTRATE 5 MG TAB PO PRN (21:00)
[2022-06-18 21:50] VITALS: BP 105/73
[2022-06-19] VITALS: BP 114/61
[2022-06-19] MEDS: HYDROCODONE/APAP 7.5MG-325MG 1 EA TAB PO PRN ×5 (00:34→17:17)
[2022-06-19] MEDS: SODIUM CHLORIDE 0.9% 1000ML 1,000 ML IV SCH (04:15)
[2022-06-19 04:28] VITALS: BP 111/68
[2022-06-19 04:51] LABS: BASOPHILS % 0.1 % (0.0-1.0); EOSINOPHILS % 0.1 % (0.0-6.0); HEMATOCRIT 36.9 % (34.2-44.1); HEMOGLOBIN 11.5 g/dL (12.0-16.0); LYMPHOCYTES # (AUTO) 1.7 (1.0-3.2); LYMPHOCYTES % 12.8 % (18.0-39.1); MEAN CORPUSCULAR HEMOGLOBIN 28.5 pg (28-32); MEAN CORPUSCULAR HGB CONC 31.2 g/dL (31-35); MEAN CORPUSCULAR VOLUME 91.3 fL (81-99); MONOCYTES # (AUTO) 1.2 (0.2-0.8); MONOCYTES % 9.1 % (4.4-11.3); NEUTROPHILS # (AUTO) 10.3 (2.1-6.9); NEUTROPHILS % 77.7 % (38.7-80.0); PLATELET COUNT 256 x10e3/uL (140-360); RED BLOOD COUNT 4.04 x10e6/uL (3.6-5.1); RED CELL DISTRIBUTION WIDTH 13.4 % (11.7-14.4)
[2022-06-19 05:16] LABS: ANION GAP 15.3 mmol/L (8-16); CALCIUM 8.4 mg/dL (8.4-10.2); CREATININE, SERUM 0.78 mg/dL (0.57-1.11); POTASSIUM 4.3 mmol/L (3.5-5.1)
[2022-06-19 08:09] VITALS: BP 108/80
[2022-06-19] MEDS: CELECOXIB 100 MG CAP PO SCH (08:57)
[2022-06-19] MEDS: ASPIRIN 325 MG TAB PO SCH (08:57)
[2022-06-19] MEDS ORDERED: CARVEDILOL 3.125 MG TAB PO SCH (09:00)
[2022-06-19 09:11] VITALS: BP 108/50
[2022-06-19] MEDS ORDERED: ACETAMINOPHEN 1000 MG/100 ML IV PRN (09:45)
[2022-06-19] MEDS ORDERED: ONDANSETRON HCL 4 MG ORAL DISINTEGRATING TAB PO PRN (10:30)
[2022-06-19] MEDS ORDERED: LORAZEPAM 0.5 MG TAB PO PRN (11:00)
[2022-06-19 12:00] VITALS: BP 111/57
[2022-06-19 15:56] VITALS: BP 115/66
[2022-06-19] MEDS ORDERED: BUSPIRONE HCL 5 MG TAB PO SCH (17:00)
[2022-06-19] MEDS ORDERED: CELECOXIB 200 MG CAP PO SCH (17:00)
[2022-06-20] MEDS ORDERED: ESCITALOPRAM OXALATE 10 MG TAB PO SCH (09:00)
[2022-06-20] MEDS ORDERED: CARVEDILOL 3.125 MG TAB PO PRN (09:00)
[2022-06-20] MEDS ORDERED: NON-FORMULARY MEDICATION (Escitalopram Oxalate 20 MG) PO SCH (09:00)
== END 2022-06-19 17:43 | disposition home or self-care (01) ==
LOC: OR 07:50 → PACU V 09:34 → MED/SURG 15:45
PROVIDERS: ADMIT Specialist; ATTEND Specialist
DX: M16.11 Unilateral primary osteoarthritis, right hip (principal); F32.A Depression, unspecified; G89.4 Chronic pain syndrome; Z88.5 Allergy status to narcotic agent; Z20.822 Contact with and (suspected) exposure to COVID-19; I11.0 Hypertensive heart disease with heart failure; I50.9 Heart failure, unspecified; E78.5 Hyperlipidemia, unspecified; F41.9 Anxiety disorder, unspecified
CPT/HCPCS: 0223U; 27130; 36415 ×2; 72170; 80048; 85025 ×2; 86850; 86900; 86920; 94799 ×2; 97110; 97116; 97162; 97530 ×3; C1713 ×3; C1776 ×2; G0378 ×2; J0131; J0171; J0690 ×2; J1100 ×2; J1170; J1885; J2001; J2250; J2405; J2704; J2795; J3010; J3370; J3490; J7030 ×2; J7040

== ENCOUNTER 2022-12-16 12:28 | Inpatient (IN) | payer MEDICARE, OTHER ==
[2022-11-07 11:47] LABS: BASOPHILS % 0.4 % (0.0-1.0); EOSINOPHILS # (AUTO) 0.2 (0.0-0.4); EOSINOPHILS % 2.5 % (0.0-6.0); HEMATOCRIT 47.1 % (34.2-44.1); HEMOGLOBIN 14.3 g/dL (12.0-16.0); LYMPHOCYTES # (AUTO) 2.3 (1.0-3.2); LYMPHOCYTES % 24.7 % (18.0-39.1); MEAN CORPUSCULAR HEMOGLOBIN 27.7 pg (28-32); MEAN CORPUSCULAR HGB CONC 30.4 g/dL (31-35); MEAN CORPUSCULAR VOLUME 91.1 fL (81-99); MONOCYTES # (AUTO) 0.7 (0.2-0.8); MONOCYTES % 7.7 % (4.4-11.3); NEUTROPHILS # (AUTO) 5.9 (2.1-6.9); NEUTROPHILS % 64.5 % (38.7-80.0); PLATELET COUNT 301 x10e3/uL (140-360); RED BLOOD COUNT 5.17 x10e6/uL (3.6-5.1); RED CELL DISTRIBUTION WIDTH 14.9 % (11.7-14.4)
[2022-11-07 12:09] LABS: ANION GAP 16.5 mmol/L (8-16); BLOOD UREA NITROGEN 21 mg/dL (7-26); BUN/CREATININE RATIO 26 (6-25); CALCIUM 9.7 mg/dL (8.4-10.2); CARBON DIOXIDE 23 mmol/L (22-29); CHLORIDE 106 mmol/L (98-107); GLUCOSE 108 mg/dL (74-118); POTASSIUM 4.5 mmol/L (3.5-5.1); SODIUM 141 mmol/L (136-145)
[~2022-12-16] VITALS: Ht 162.6 cm; Wt 89.4 kg
[~2022-12-16 12:28] MED LIST changes: -CELECOXIB 200 MG CAP ONE; -DEXAMETHASONE SOD PHOS 10 MG/1 ML VIAL ONE; +FENTANYL1 EACH TOP; -GABAPENTIN 300 MG CAP ONE; -SODIUM CHLORIDE 0.9% 500ML 500 ML ONE; -TRANEXAMIC ACID 20 ML ONE; -Vancomycin IV 1,000 MG ONE
[2022-12-16] MEDS ORDERED: HYDROCODON-ACE1 EAC9 PO (13:02)
[2022-12-16] MEDS ORDERED: GENTAMICIN 80MG/NS 100 ML 200 ML IV ONE (13:06)
[2022-12-16] MEDS ORDERED: PIPERACILLIN/TAZOBACTAM 3.375 GM VIAL ONE (13:06)
[2022-12-16] MEDS ORDERED: DIPHENHYDRAMINE HCL 25 MG CAP PO PRN (13:15)
[2022-12-16 13:16] LABS: BASOPHILS % 0.3 % (0.0-1.0); EOSINOPHILS # (AUTO) 0.3 (0.0-0.4); EOSINOPHILS % 3.1 % (0.0-6.0); HEMATOCRIT 43.6 % (34.2-44.1); HEMOGLOBIN 13.2 g/dL (12.0-16.0); LYMPHOCYTES # (AUTO) 2.4 (1.0-3.2); LYMPHOCYTES % 27.4 % (18.0-39.1); MEAN CORPUSCULAR HEMOGLOBIN 28.6 pg (28-32); MEAN CORPUSCULAR HGB CONC 30.3 g/dL (31-35); MEAN CORPUSCULAR VOLUME 94.4 fL (81-99); MONOCYTES # (AUTO) 0.5 (0.2-0.8); MONOCYTES % 5.5 % (4.4-11.3); NEUTROPHILS # (AUTO) 5.5 (2.1-6.9); NEUTROPHILS % 63.4 % (38.7-80.0); PLATELET COUNT 248 x10e3/uL (140-360); RED BLOOD COUNT 4.62 x10e6/uL (3.6-5.1); RED CELL DISTRIBUTION WIDTH 13.5 % (11.7-14.4)
[2022-12-16 13:34] LABS: ANION GAP 14.8 mmol/L (8-16); CALCIUM 9.5 mg/dL (8.4-10.2); CREATININE, SERUM 0.77 mg/dL (0.57-1.11); POTASSIUM 3.8 mmol/L (3.5-5.1)
[2022-12-16] MEDS ORDERED: LIDOCAINE 2%/ EPINEPHRINE 20ML MDV ONE (14:03)
[2022-12-16] MEDS ORDERED: BUPIVACAINE HCL 0.5% INJ 30 ML VIAL INJ ONE (14:03)
[2022-12-16] MEDS ORDERED: GENTAMICIN SULFATE 40 MG/ML 2 ML VIAL ONE (14:03)
[2022-12-16] MEDS ORDERED: BACITRACIN ZINC 15 GM OINT ONE (14:03)
[2022-12-16] MEDS ORDERED: IOPAMIDOL 370 MG/ML 100 ML INFUS..BTL INJ ONE (14:09)
[2022-12-16 16:23] LABS: BASOPHILS % 0.2 % (0.0-1.0); EOSINOPHILS # (AUTO) 0.2 (0.0-0.4); EOSINOPHILS % 2.2 % (0.0-6.0); HEMATOCRIT 39.9 % (34.2-44.1); HEMOGLOBIN 12.5 g/dL (12.0-16.0); LYMPHOCYTES # (AUTO) 2.2 (1.0-3.2); LYMPHOCYTES % 27.1 % (18.0-39.1); MEAN CORPUSCULAR HEMOGLOBIN 28.6 pg (28-32); MEAN CORPUSCULAR HGB CONC 31.3 g/dL (31-35); MEAN CORPUSCULAR VOLUME 91.3 fL (81-99); MONOCYTES # (AUTO) 0.4 (0.2-0.8); MONOCYTES % 4.7 % (4.4-11.3); NEUTROPHILS # (AUTO) 5.3 (2.1-6.9); NEUTROPHILS % 65.4 % (38.7-80.0); PLATELET COUNT 215 x10e3/uL (140-360); RED BLOOD COUNT 4.37 x10e6/uL (3.6-5.1); RED CELL DISTRIBUTION WIDTH 13.7 % (11.7-14.4)
[2022-12-16] MEDS ORDERED: HYDROMORPHONE 1MG/1ML INJ ONE (16:37)
[2022-12-16 16:49] LABS: ANION GAP 14.4 mmol/L (8-16); CALCIUM 9.1 mg/dL (8.4-10.2); CREATININE, SERUM 0.8 mg/dL (0.57-1.11); POTASSIUM 4.4 mmol/L (3.5-5.1)
[2022-12-16] MEDS ORDERED: PROPOFOL IV EMULSION 10 MG/ML 20 ML VIAL ONE (16:52)
[2022-12-16] MEDS ORDERED: POVIDONE IODINE 0.05% 0.05 % ML PO ONE (16:52)
[2022-12-16] MEDS ORDERED: ONDANSETRON HCL INJ 2MG/ML 2ML 2 MG/ML VIAL ONE (16:52)
[2022-12-16] MEDS ORDERED: LIDOCAINE HCL 2% LOCAL INJ 5 ML SDV VIAL INJ ONE (16:52)
[2022-12-16] MEDS ORDERED: METOCLOPRAMIDE HCL 10 MG/2ML VIAL ONE (16:52)
[2022-12-16] MEDS ORDERED: SEVOFLURANE INHAL SOLN 250 ML PEN BTL ONE (16:52)
[2022-12-16] MEDS ORDERED: FENTANYL CITRATE/PF 100MCG/2 ML INJ ONE (17:00)
[2022-12-16] MEDS ORDERED: MIDAZOLAM HCL 2 MG/2 ML VIAL ONE (17:00)
[2022-12-16 17:12] VITALS: BP 143/83
[2022-12-16 17:30] VITALS: BP 143/83
[2022-12-16] MEDS: TRAMADOL HCL 50 MG TAB PO PRN (18:14)
[2022-12-16] MEDS: DOCUSATE SODIUM 100 MG CAP PO SCH (18:14)
[2022-12-16] MEDS: SODIUM CHLORIDE 0.9% 1000ML 1,000 ML IV SCH (18:15)
[2022-12-16] MEDS ORDERED: LOSARTAN POTASSIUM 25 MG TAB PO SCH (22:00)
[2022-12-16] MEDS ORDERED: MELATONIN 3 MG TAB PO SCH (22:00)
[2022-12-16] MEDS ORDERED: HYDROMORPHONE 1MG/1ML INJ IV STA (22:14)
[2022-12-16] MEDS ORDERED: TIZANIDINE HCL 4 MG TAB PO ONE (22:15)
[2022-12-16] MEDS: LORAZEPAM 1 MG TAB PO SCH (22:25)
[2022-12-16] MEDS: ACETAMINOPHEN 1000 MG/100 ML IV PRN (22:30)
[2022-12-16 23:04] VITALS: BP 138/74
[2022-12-17] MEDS: HYDROMORPHONE 1MG/1ML INJ IV PRN ×2 (04:13→08:31)
[2022-12-17 04:59] LABS: BASOPHILS % 0.2 % (0.0-1.0); HEMATOCRIT 33.7 % (34.2-44.1); LYMPHOCYTES # (AUTO) 1.5 (1.0-3.2); LYMPHOCYTES % 12.4 % (18.0-39.1); MEAN CORPUSCULAR HEMOGLOBIN 29.1 pg (28-32); MEAN CORPUSCULAR HGB CONC 32.6 g/dL (31-35); MEAN CORPUSCULAR VOLUME 89.2 fL (81-99); MONOCYTES # (AUTO) 0.7 (0.2-0.8); MONOCYTES % 6.2 % (4.4-11.3); NEUTROPHILS # (AUTO) 9.6 (2.1-6.9); NEUTROPHILS % 80.7 % (38.7-80.0); PLATELET COUNT 218 x10e3/uL (140-360); RED BLOOD COUNT 3.78 x10e6/uL (3.6-5.1); RED CELL DISTRIBUTION WIDTH 13.6 % (11.7-14.4)
[2022-12-17 05:13] LABS: CALCIUM 8.4 mg/dL (8.4-10.2); CREATININE, SERUM 0.77 mg/dL (0.57-1.11)
[2022-12-17] MEDS: ACETAMINOPHEN 1000 MG/100 ML IV PRN (06:17)
[2022-12-17] MEDS: SODIUM CHLORIDE 0.9% 1000ML 1,000 ML IV SCH ×2 (06:23→18:06)
[2022-12-17 07:58] VITALS: BP 138/74
[2022-12-17 08:08] VITALS: BP 114/55
[2022-12-17] MEDS: LORATADINE 10 MG TAB PO SCH (08:33)
[2022-12-17] MEDS: DOCUSATE SODIUM 100 MG CAP PO SCH ×2 (08:34→18:02)
[2022-12-17] MEDS: BUSPIRONE HCL 5 MG TAB PO SCH ×2 (08:34→18:02)
[2022-12-17] MEDS: ESCITALOPRAM OXALATE 10 MG TAB PO SCH (08:34)
[2022-12-17] MEDS: CARVEDILOL 3.125 MG TAB PO SCH ×2 (08:34→17:00)
[2022-12-17] MEDS: POTASSIUM CHLORIDE 20 MEQ TAB CR PO SCH ×2 (08:34→18:02)
[2022-12-17] MEDS: TIZANIDINE HCL 4 MG TAB PO SCH ×3 (08:35→22:15)
[2022-12-17 12:03] VITALS: BP 98/53
[2022-12-17] MEDS: TRAMADOL HCL 50 MG TAB PO PRN ×2 (12:24→22:14)
[2022-12-17] MEDS: LORAZEPAM 1 MG TAB PO SCH ×2 (12:25→22:14)
[2022-12-17] MEDS ORDERED: FENTANYL 25 MCG/HR PATCH TOP SCH (14:00)
[2022-12-17 16:00] VITALS: BP 95/61
[2022-12-17 20:00] VITALS: BP 105/78
[2022-12-18] VITALS: BP 112/72
[2022-12-18 04:58] LABS: BASOPHILS % 0.4 % (0.0-1.0); EOSINOPHILS # (AUTO) 0.2 (0.0-0.4); HEMATOCRIT 32.6 % (34.2-44.1); HEMOGLOBIN 10.1 g/dL (12.0-16.0); LYMPHOCYTES # (AUTO) 3.4 (1.0-3.2); LYMPHOCYTES % 32.4 % (18.0-39.1); MEAN CORPUSCULAR HEMOGLOBIN 28.5 pg (28-32); MEAN CORPUSCULAR VOLUME 92.1 fL (81-99); MONOCYTES # (AUTO) 0.8 (0.2-0.8); MONOCYTES % 7.3 % (4.4-11.3); NEUTROPHILS # (AUTO) 6.1 (2.1-6.9); NEUTROPHILS % 57.5 % (38.7-80.0); PLATELET COUNT 191 x10e3/uL (140-360); RED BLOOD COUNT 3.54 x10e6/uL (3.6-5.1); RED CELL DISTRIBUTION WIDTH 14.1 % (11.7-14.4)
[2022-12-18 05:16] LABS: ANION GAP 13.2 mmol/L (8-16); CALCIUM 8.4 mg/dL (8.4-10.2); CREATININE, SERUM 0.81 mg/dL (0.57-1.11); POTASSIUM 4.2 mmol/L (3.5-5.1)
[2022-12-18 06:00] VITALS: BP 108/57
[2022-12-18] MEDS: LORATADINE 10 MG TAB PO SCH (07:58)
[2022-12-18] MEDS: ESCITALOPRAM OXALATE 10 MG TAB PO SCH (07:58)
[2022-12-18] MEDS: BUSPIRONE HCL 5 MG TAB PO SCH (07:58)
[2022-12-18] MEDS: TIZANIDINE HCL 4 MG TAB PO SCH ×2 (07:58→14:45)
[2022-12-18] MEDS: DOCUSATE SODIUM 100 MG CAP PO SCH (07:58)
[2022-12-18] MEDS: CARVEDILOL 3.125 MG TAB PO SCH (07:59)
[2022-12-18 08:21] VITALS: BP 105/81
[2022-12-18 08:42] VITALS: BP 105/81
[2022-12-18 12:05] VITALS: BP 99/55
[2022-12-18] MEDS: SODIUM CHLORIDE 0.9% 1000ML 1,000 ML IV SCH (12:30)
[2022-12-18] MEDS ORDERED: HYDROMORPHONE 1MG/1ML INJ IV ONE (13:20)
[2022-12-18] MEDS ORDERED: Docusate Sodium PO (13:45)
[2022-12-18] MEDS ORDERED: ULTRAM 50MG50 MG PO (13:45)
[2022-12-18] MEDS ORDERED: LEVOFLOXACIN250 MG PO (15:04)
== END 2022-12-18 17:40 | disposition home or self-care (01) | DRG 748 ==
LOC: OR 12:28 → PACU V 13:06 → MED/SURG2 16:59
PROVIDERS: ADMIT Internal Medicine; ATTEND Internal Medicine
PROC: 0T788ZZ Dilation of Bilateral Ureters, Via Natural or Artificial Opening Endoscopic (ICD-10-PCS; 2022-12-16)
PROC: BT141ZZ Fluoroscopy of Kidneys, Ureters and Bladder using Low Osmolar Contrast (ICD-10-PCS; 2022-12-16)
PROC: 0JUC3KZ Supplement of Pelvic Region Subcutaneous Tissue and Fascia with Nonautologous Tissue Substitute, Percutaneous Approach (ICD-10-PCS; principal; 2022-12-16 14:28)
PROC: 0UU Female Reproductive System, Supplement (ICD-10-PCS; 2022-12-16 14:28)
DX: N81.12 Cystocele, lateral (principal); N39.0 Urinary tract infection, site not specified; I42.9 Cardiomyopathy, unspecified; N39.3 Stress incontinence (female) (male); M79.7 Fibromyalgia; F32.A Depression, unspecified; F41.9 Anxiety disorder, unspecified; K21.9 Gastro-esophageal reflux disease without esophagitis; E78.5 Hyperlipidemia, unspecified; F17.210 Nicotine dependence, cigarettes, uncomplicated; Z88.5 Allergy status to narcotic agent; Z20.822 Contact with and (suspected) exposure to COVID-19; G89.4 Chronic pain syndrome; I11.0 Hypertensive heart disease with heart failure; I50.9 Heart failure, unspecified
CPT/HCPCS: 0223U; 36415; 74420; 80048; 83735; 85025; 94799; C1713; C1752; C1758; J1170; J1580; J2001; J2250; J2405; J2543; J2765; J3010; J7030; Q9967

== ENCOUNTER → 2022-12-26 | Outpatient (CLI) | payer MEDICARE, OTHER ==
[~2022-12-26] MED LIST changes: +Docusate Sodium PO; +HYDROCODON-ACE1 EAC9 PO; +LEVOFLOXACIN250 MG PO; +ULTRAM 50MG50 MG PO
== END ==
LOC: MAMMO 12:59
PROVIDERS: ATTEND Internal Medicine
DX: R92.8 Other abnormal and inconclusive findings on diagnostic imaging of breast (principal)
CPT/HCPCS: 77066

== ENCOUNTER 2023-01-09 03:26 | Emergency (ER) | payer MEDICARE, OTHER ==
[~2023-01-09] VITALS: Ht 162.6 cm; Wt 89.4 kg
[2023-01-09 03:56] LABS: CLARITY,URINE TURBID (CLEAR); COLOR,URINE YELLOW (YELLOW); KETONES,URINE NEGATIVE (NEGATIVE); LEUKOCYTE ESTERASE ,URINE LARGE (NEGATIVE); NITRITE,URINE POSITIVE (NEGATIVE); PROTEIN,URINE DIPSTICK 2+ (NEGATIVE); URINE UROBILINOGEN 0.2 mg/dL (0.2 - 1)
[2023-01-09 04:00] LABS: BACTERIA,URINE MODERATE /HPF; EPITHELIAL CELLS,URINE FEW /LPF; WBC,URINE (MAN) >50 /HPF (0-5)
[2023-01-09] MEDS ORDERED: CEFTRIAXONE 1 GM VIAL IV ONE (04:15)
[2023-01-09] MEDS ORDERED: KETOROLAC TROMETHAMINE 30 MG/ML VIAL IM STA (04:42)
[2023-01-09] MEDS ORDERED: CEPHALEXIN500 MG PO (05:02)
== END 2023-01-09 08:00 | disposition home or self-care (01) ==
LOC: ER 03:31
DX: R33.9 Retention of urine, unspecified (principal); N39.0 Urinary tract infection, site not specified; I10 Essential (primary) hypertension; I50.9 Heart failure, unspecified; F41.9 Anxiety disorder, unspecified; G89.29 Other chronic pain
CPT/HCPCS: 51702; 81001; 87086; 87186; 99284; J0696; J1885

== ENCOUNTER 2023-02-11 19:02 | Inpatient (IN) | payer MEDICARE, OTHER ==
[~2023-02-11] VITALS: Ht 162.6 cm; Wt 89.4 kg
[~2023-02-11 19:02] MED LIST changes: +CEPHALEXIN500 MG PO
[2023-02-11] MEDS ORDERED: SODIUM CHLORIDE FLUSH 10 ML SYR INJ PRN (19:45)
[2023-02-11] MEDS ORDERED: NALOXONE HCL 2MG/2 ML SYRINGE IV ONE ×2 (19:45→23:15)
[2023-02-11] MEDS ORDERED: SODIUM CHLORIDE 0.9% 1000ML 1,000 ML IV SCH ×2 (19:45→23:45)
[2023-02-11 20:16] LABS: CLARITY,URINE SL CLOUDY (CLEAR); COLOR,URINE ORANGE (YELLOW); KETONES,URINE TRACE (NEGATIVE); LEUKOCYTE ESTERASE ,URINE TRACE (NEGATIVE); NITRITE,URINE POSITIVE (NEGATIVE); PROTEIN,URINE DIPSTICK 2+ (NEGATIVE); URINE UROBILINOGEN 2 mg/dL (0.2 - 1)
[2023-02-11 20:20] LABS: AMPHETAMINES SCREEN,URINE POSITIVE (NEGATIVE); BENZODIAZEPINES SCREEN,URINE POSITIVE (NEGATIVE); PHENCYCLIDINE SCREEN,URINE NEGATIVE (NEGATIVE)
[2023-02-11 20:26] LABS: BASOPHILS % 0.4 % (0.0-1.0); EOSINOPHILS # (AUTO) 0.5 (0.0-0.4); EOSINOPHILS % 4.9 % (0.0-6.0); HEMATOCRIT 39.7 % (34.2-44.1); HEMOGLOBIN 12.5 g/dL (12.0-16.0); LYMPHOCYTES # (AUTO) 3.2 (1.0-3.2); MEAN CORPUSCULAR HEMOGLOBIN 28.2 pg (28-32); MEAN CORPUSCULAR HGB CONC 31.5 g/dL (31-35); MEAN CORPUSCULAR VOLUME 89.6 fL (81-99); MONOCYTES # (AUTO) 0.8 (0.2-0.8); MONOCYTES % 7.8 % (4.4-11.3); NEUTROPHILS # (AUTO) 5.5 (2.1-6.9); NEUTROPHILS % 54.7 % (38.7-80.0); PLATELET COUNT 265 x10e3/uL (140-360); RED BLOOD COUNT 4.43 x10e6/uL (3.6-5.1); RED CELL DISTRIBUTION WIDTH 13.2 % (11.7-14.4)
[2023-02-11 20:32] LABS: BACTERIA,URINE MODERATE /HPF; RBC,URINE 21-50 /HPF (0-5); WBC,URINE (MAN) 0-5 /HPF (0-5)
[2023-02-11 20:42] LABS: ALANINE AMINOTRANSFERASE 54 IU/L (0-55); ALBUMIN 3.6 g/dL (3.5-5.0); ALBUMIN/GLOBULIN RATIO 1.3 (0.8-2.0); ALKALINE PHOSPHATASE 111 IU/L (40-150); ANION GAP 15.5 mmol/L (8-16); BLOOD UREA NITROGEN 23 mg/dL (7-26); BUN/CREATININE RATIO 24 (6-25); CALCIUM 8.7 mg/dL (8.4-10.2); CARBON DIOXIDE 19 mmol/L (22-29); CHLORIDE 111 mmol/L (98-107); CREATININE, SERUM 0.97 mg/dL (0.57-1.11); GLUCOSE 100 mg/dL (74-118); POTASSIUM 4.5 mmol/L (3.5-5.1); SODIUM 141 mmol/L (136-145)
[2023-02-11] MEDS ORDERED: NALOXONE HCL 2MG/2 ML SYRINGE ONE (23:13)
[2023-02-11] MEDS ORDERED: ONDANSETRON HCL INJ 2MG/ML 2ML 2 MG/ML VIAL IV PRN (23:45)
[2023-02-12] MEDS ORDERED: NALOXONE HCL 2MG/2 ML SYRINGE IV PRN (00:15)
[2023-02-12] MEDS ORDERED: GUAIFENESIN 200 MG/10 ML UDC PO PRN (00:30)
[2023-02-12] MEDS ORDERED: ACETAMINOPHEN 325 MG TAB PO PRN (00:30)
[2023-02-12] MEDS ORDERED: MELATONIN 3 MG TAB PO PRN (00:30)
[2023-02-12] MEDS ORDERED: HYDRALAZINE HCL 20 MG/ML VIAL IV PRN (00:30)
[2023-02-12] MEDS ORDERED: MAGNESIUM/ALUMINUM/SIMETHICONE 30 ML UDC PO PRN (00:30)
[2023-02-12] MEDS ORDERED: LOSARTAN POTASSIUM 25 MG TAB PO SCH (00:45)
[2023-02-12] MEDS ORDERED: CEFTRIAXONE 1 GM VIAL ONE (00:48)
[2023-02-12 05:40] LABS: BASOPHILS % 0.2 % (0.0-1.0); EOSINOPHILS # (AUTO) 0.3 (0.0-0.4); EOSINOPHILS % 3.4 % (0.0-6.0); HEMATOCRIT 37.9 % (34.2-44.1); HEMOGLOBIN 11.9 g/dL (12.0-16.0); LYMPHOCYTES # (AUTO) 3.1 (1.0-3.2); LYMPHOCYTES % 37.4 % (18.0-39.1); MEAN CORPUSCULAR HEMOGLOBIN 28.4 pg (28-32); MEAN CORPUSCULAR HGB CONC 31.4 g/dL (31-35); MEAN CORPUSCULAR VOLUME 90.5 fL (81-99); MONOCYTES # (AUTO) 0.7 (0.2-0.8); MONOCYTES % 8.6 % (4.4-11.3); NEUTROPHILS # (AUTO) 4.2 (2.1-6.9); NEUTROPHILS % 50.3 % (38.7-80.0); PLATELET COUNT 241 x10e3/uL (140-360); RED BLOOD COUNT 4.19 x10e6/uL (3.6-5.1); RED CELL DISTRIBUTION WIDTH 13.3 % (11.7-14.4)
[2023-02-12 05:53] LABS: ALBUMIN 3.2 g/dL (3.5-5.0); ALBUMIN/GLOBULIN RATIO 1.3 (0.8-2.0); ANION GAP 13.3 mmol/L (8-16); CALCIUM 8.3 mg/dL (8.4-10.2); CREATININE, SERUM 0.79 mg/dL (0.57-1.11); POTASSIUM 4.3 mmol/L (3.5-5.1)
[2023-02-12 08:00] VITALS: BP 118/87
[2023-02-12 08:26] VITALS: BP 118/87
[2023-02-12] MEDS ORDERED: LORATADINE 10 MG TAB PO SCH (09:00)
[2023-02-12] MEDS ORDERED: ESCITALOPRAM OXALATE 10 MG TAB PO SCH (09:00)
[2023-02-12] MEDS ORDERED: BUSPIRONE HCL 5 MG TAB PO SCH (09:00)
[2023-02-12] MEDS ORDERED: DOCUSATE SODIUM 100 MG CAP PO SCH ×2 (09:00→15:00)
[2023-02-12] MEDS ORDERED: CARVEDILOL 3.125 MG TAB PO SCH (09:00)
[2023-02-12] MEDS ORDERED: MULTIVITAMINS/MINERALS TAB PO SCH (09:00)
[2023-02-12 09:05] VITALS: BP 118/87
[2023-02-12] MEDS ORDERED: LORAZEPAM 1 MG TAB PO SCH (12:15)
[2023-02-12 12:31] VITALS: BP 125/79
[2023-02-12] MEDS ORDERED: NARCAN4 MG NS (12:52)
[2023-02-12] MEDS ORDERED: Multivitamins/Minerals PO (12:52)
[2023-02-12] MEDS ORDERED: HYDROCODONE/APAP 10MG-325MG TAB PO SCH (13:00)
[2023-02-12] MEDS ORDERED: TIZANIDINE HCL 4 MG TAB PO SCH (15:00)
[2023-02-12] MEDS ORDERED: POTASSIUM CHLORIDE 20 MEQ TAB CR PO SCH (17:00)
[2023-02-12] MEDS ORDERED: MELATONIN 5 MG TABLET PO SCH (21:00)
== END 2023-02-12 14:27 | disposition home or self-care (01) | DRG 917 ==
LOC: ER 19:26 → ERHOLD 23:36 → ICU 02-12 07:42
PROVIDERS: ADMIT Internal Medicine; ATTEND Internal Medicine
DX: T40.2X1A Poisoning by other opioids, accidental (unintentional), initial encounter (principal); G92.8 Other toxic encephalopathy; J96.01 Acute respiratory failure with hypoxia; N39.0 Urinary tract infection, site not specified; I11.0 Hypertensive heart disease with heart failure; I50.9 Heart failure, unspecified; F41.9 Anxiety disorder, unspecified; F32.A Depression, unspecified; Z88.5 Allergy status to narcotic agent; G47.36 Sleep related hypoventilation in conditions classified elsewhere; E66.01 Morbid (severe) obesity due to excess calories; Z68.33 Body mass index [BMI] 33.0-33.9, adult; E78.5 Hyperlipidemia, unspecified; J30.9 Allergic rhinitis, unspecified; M06.9 Rheumatoid arthritis, unspecified; Z86.718 Personal history of other venous thrombosis and embolism; Z79.01 Long term (current) use of anticoagulants; M54.50 Low back pain, unspecified; M79.7 Fibromyalgia; Z20.822 Contact with and (suspected) exposure to COVID-19; M25.559 Pain in unspecified hip; M17.0 Bilateral primary osteoarthritis of knee; G89.4 Chronic pain syndrome; R33.9 Retention of urine, unspecified
CPT/HCPCS: 36415; 51700; 80053; 80307; 80320; 81001; 85025; 93005; 94799; 99285; J0696; J2310; J7030

== ENCOUNTER 2024-07-30 08:37 | Inpatient (IN) | payer MEDICARE ==
[2024-07-30] VITALS (11 sets, daily range): BP systolic 123–156; BP diastolic 69–89; PULSE 65–100; RESP 14–20; TEMP 97.6–99.4; O2SAT 97–100
[~2024-07-30] VITALS: Ht 154.9 cm; Wt 88.9 kg
[~2024-07-30 08:37] MED LIST changes: +ASPIRIN81 MG PO; +CRESTOR10 MG PO; +DICYCLOMINE HCL20 MG PO; +ESTRADIOL1 MG PO; +Multivitamins/Minerals PO; +NARCAN4 MG NS; +ONDANSETRON ODT4 MG PO
[2024-07-30 09:39] LABS: BASOPHILS % 0.2 % (0.0-1.0); EOSINOPHILS # (AUTO) 0.3 (0.0-0.4); EOSINOPHILS % 3.5 % (0.0-6.0); HEMATOCRIT 36.6 % (34.2-44.1); HEMOGLOBIN 11.3 g/dL (12.0-16.0); LYMPHOCYTES # (AUTO) 3.2 (1.0-3.2); LYMPHOCYTES % 33.7 % (18.0-39.1); MEAN CORPUSCULAR HEMOGLOBIN 29.5 pg (28-32); MEAN CORPUSCULAR HGB CONC 30.9 g/dL (31-35); MEAN CORPUSCULAR VOLUME 95.6 fL (81-99); MONOCYTES # (AUTO) 0.9 (0.2-0.8); NEUTROPHILS % 53.2 % (38.7-80.0); PLATELET COUNT 195 x10e3/uL (140-360); RED BLOOD COUNT 3.83 x10e6/uL (3.6-5.1); RED CELL DISTRIBUTION WIDTH 13.1 % (11.7-14.4); WHITE BLOOD COUNT 9.41 x10e3/uL (4.8-10.8)
[2024-07-30] MEDS: SODIUM CHLORIDE 0.9% 1000ML 1,000 ML IV STA ×2 (09:48→11:25)
[2024-07-30] MEDS: NALOXONE HCL INJ 0.4 MG/ML AMP IV PRN ×2 (09:49→11:58)
[2024-07-30 09:56] LABS: OPIATES SCREEN,URINE NEGATIVE (NEGATIVE)
[2024-07-30 09:57] LABS: AMPHETAMINES SCREEN,URINE NEGATIVE (NEGATIVE); BENZODIAZEPINES SCREEN,URINE NEGATIVE (NEGATIVE); CANNABINOIDS SCREEN,URINE NEGATIVE (NEGATIVE); CLARITY,URINE CLEAR (CLEAR); COLOR,URINE YELLOW (YELLOW); METHADONE SCREEN, URINE NEGATIVE (NEGATIVE); PHENCYCLIDINE SCREEN,URINE NEGATIVE (NEGATIVE)
[2024-07-30 09:58] LABS: BILIRUBIN,URINE NEGATIVE (NEGATIVE); GLUCOSE, URINE NEGATIVE (NEGATIVE); KETONES,URINE NEGATIVE (NEGATIVE); LEUKOCYTE ESTERASE ,URINE NEGATIVE (NEGATIVE); NITRITE,URINE NEGATIVE (NEGATIVE); PH,URINE 5.5 (5 - 7); PROTEIN,URINE DIPSTICK NEGATIVE (NEGATIVE); URINE UROBILINOGEN 0.2 mg/dL (0.2 - 1)
[2024-07-30 10:01] LABS: ETHANOL < 10.0 mg/dL (0.0-10.0); SALICYLATE < 5.0 mg/dL (0-30)
[2024-07-30 10:02] LABS: ALANINE AMINOTRANSFERASE 8 IU/L (0-55); ALBUMIN 2.3 g/dL (3.5-5.0); ALBUMIN/GLOBULIN RATIO 1.6 (0.8-2.0); ALKALINE PHOSPHATASE 54 IU/L (40-150); BILIRUBIN,TOTAL 0.2 mg/dL (0.2-1.2); BLOOD UREA NITROGEN 27 mg/dL (7-26); BUN/CREATININE RATIO 17 (6-25); CHLORIDE 123 mmol/L (98-107); CREATINE KINASE 260 IU/L (29-168); CREATININE, SERUM 1.61 mg/dL (0.57-1.11); EST GLOMERULAR FILTRATION RATE 35 ML/MIN (>=60); GLUCOSE 73 mg/dL (74-118); MAGNESIUM 1.3 MG/DL (1.3-2.1); SODIUM 141 mmol/L (136-145); TOTAL PROTEIN 3.7 g/dL (6.5-8.1)
[2024-07-30 10:06] LABS: INR 1.09; PROTHROMBIN TIME 14.7 seconds (11.9-14.5)
[2024-07-30 10:07] LABS: PARTIAL THROMBOPLASTIN TIME 31.1 seconds (23.8-35.5)
[2024-07-30 10:11] LABS: BACTERIA,URINE MANY /HPF; EPITHELIAL CELLS,URINE RARE /LPF; RBC,URINE 0-5 /HPF (0-5); WBC,URINE (MAN) 0-5 /HPF (0-5)
[2024-07-30 10:12] LABS: TROPONIN I < 0.001 ng/mL (0-0.300)
[2024-07-30 10:16] LABS: CARBON DIOXIDE 11 mmol/L (22-29)
[2024-07-30 10:17] LABS: ANION GAP 9.3 mmol/L (8-16)
[2024-07-30 10:19] LABS: POTASSIUM 2.3 mmol/L (3.5-5.1)
[2024-07-30 10:20] LABS: CALCIUM 5.1 mg/dL (8.4-10.2)
[2024-07-30] MEDS ORDERED: D5NS/KCL 20MEQ 1,000 ML IV SCH (11:10)
[2024-07-30] MEDS ORDERED: NALOXONE HCL INJ 0.4 MG/ML AMP IV ONE (11:15)
[2024-07-30] MEDS: POTASSIUM CHLORIDE 10MEQ/100ML 200 ML IV ONE (11:21)
[2024-07-30] MEDS: POTASSIUM CHLORIDE 20 MEQ TAB CR PO STA (11:24)
[2024-07-30] MEDS: MAGNESIUM SULFATE 2GM/50ML 50 ML IV ONE (11:25)
[2024-07-30] MEDS ORDERED: ONDANSETRON HCL INJ 2MG/ML 2ML 2 MG/ML VIAL IV PRN (11:30)
[2024-07-30] MEDS: D5NS/KCL 20MEQ 1,000 ML IV STA (11:53)
[2024-07-30 12:27] LABS: ABG HCO3 15 mmol/L (22-26); ABG PCO2 20 mmHg (35-45); ABG PH 7.32 (7.35-7.45); ABG PO2 119 mmHg (80-105); ABG TCO2 16
[2024-07-30] MEDS ORDERED: NALOXONE HCL 2 MG in SODIUM CHLORIDE 0.9% 500ML 500 ML IV PRN (13:15)
[2024-07-30] MEDS: DOCUSATE SODIUM 100 MG CAP PO SCH (15:00)
[2024-07-30] MEDS: NALOXONE HCL 2 MG in SODIUM CHLORIDE 0.9% 500ML 500 ML IV PRN (15:07)
[2024-07-30 15:52] LABS: TROPONIN I 0.002 ng/mL (0-0.300)
[2024-07-30 18:33] LABS: ANION GAP 10.1 mmol/L (8-16); CALCIUM 8.2 mg/dL (8.4-10.2); CREATININE, SERUM 1.56 mg/dL (0.57-1.11); POTASSIUM 4.1 mmol/L (3.5-5.1)
[2024-07-30] MEDS: BUSPIRONE HCL 5 MG TAB PO SCH (19:40)
[2024-07-30] MEDS: ASPIRIN 81 MG CHEW TAB PO SCH (19:40)
[2024-07-30] MEDS: ENOXAPARIN 30 MG/0.3 ML SYR SC SCH (19:41)
[2024-07-30] MEDS: SIMVASTATIN 40 MG TAB PO SCH (21:00)
[2024-07-30] MEDS: DEXTROSE 5%/0.9% SOD CHL 1,000 ML IV SCH (22:16)
[2024-07-30] MEDS: ACETAMINOPHEN 325 MG TAB PO ONE (22:54)
[2024-07-31] VITALS (9 sets, daily range): BP systolic 122–156; BP diastolic 64–89; PULSE 73–97; RESP 12–19; TEMP 97.8–99.1; O2SAT 93–99
[2024-07-31 03:40] LABS: CREATINE KINASE 389 IU/L (29-168)
[2024-07-31 04:46] LABS: TROPONIN I < 0.001 ng/mL (0-0.300)
[2024-07-31 06:52] LABS: BASOPHILS % 0.3 % (0.0-1.0); EOSINOPHILS # (AUTO) 0.2 (0.0-0.4); HEMATOCRIT 35.8 % (34.2-44.1); HEMOGLOBIN 11.6 g/dL (12.0-16.0); LYMPHOCYTES # (AUTO) 2.1 (1.0-3.2); LYMPHOCYTES % 35.1 % (18.0-39.1); MEAN CORPUSCULAR HEMOGLOBIN 30.2 pg (28-32); MEAN CORPUSCULAR HGB CONC 32.4 g/dL (31-35); MEAN CORPUSCULAR VOLUME 93.2 fL (81-99); MONOCYTES # (AUTO) 0.6 (0.2-0.8); MONOCYTES % 9.6 % (4.4-11.3); NEUTROPHILS # (AUTO) 3.1 (2.1-6.9); NEUTROPHILS % 50.8 % (38.7-80.0); PLATELET COUNT 172 x10e3/uL (140-360); RED BLOOD COUNT 3.84 x10e6/uL (3.6-5.1); RED CELL DISTRIBUTION WIDTH 13.3 % (11.7-14.4); WHITE BLOOD COUNT 6.06 x10e3/uL (4.8-10.8)
[2024-07-31 07:23] LABS: ALBUMIN 3.3 g/dL (3.5-5.0); ALBUMIN/GLOBULIN RATIO 1.4 (0.8-2.0); ANION GAP 9.6 mmol/L (8-16); BILIRUBIN,TOTAL 0.5 mg/dL (0.2-1.2); CALCIUM 8.5 mg/dL (8.4-10.2); CHOL/HDL RATIO 7.8 (3.0-3.6); CREATININE, SERUM 0.82 mg/dL (0.57-1.11); POTASSIUM 3.6 mmol/L (3.5-5.1); TOTAL PROTEIN 5.7 g/dL (6.5-8.1)
[2024-07-31] MEDS: D5.45%NS/KCL 20MEQ 1,000 ML IV SCH (09:30)
[2024-07-31] MEDS: DEXTROSE 50% SYRINGE 50 ML IV ONE (09:50)
[2024-07-31] MEDS: LORATADINE 10 MG TAB PO SCH (20:38)
[2024-08-01] VITALS: BP 152/85; PULSE 90; RESP 18; TEMP 98.8; O2SAT 100
[2024-08-01 04:00] VITALS: BP 138/95; PULSE 87; RESP 18; TEMP 99; O2SAT 98
[2024-08-01 06:39] LABS: BASOPHILS % 0.3 % (0.0-1.0); EOSINOPHILS # (AUTO) 0.2 (0.0-0.4); HEMATOCRIT 37.1 % (34.2-44.1); HEMOGLOBIN 11.8 g/dL (12.0-16.0); LYMPHOCYTES # (AUTO) 2.3 (1.0-3.2); LYMPHOCYTES % 29.1 % (18.0-39.1); MEAN CORPUSCULAR HEMOGLOBIN 29.6 pg (28-32); MEAN CORPUSCULAR HGB CONC 31.8 g/dL (31-35); MEAN CORPUSCULAR VOLUME 93.2 fL (81-99); MONOCYTES # (AUTO) 0.8 (0.2-0.8); MONOCYTES % 10.1 % (4.4-11.3); NEUTROPHILS # (AUTO) 4.5 (2.1-6.9); NEUTROPHILS % 57.2 % (38.7-80.0); PLATELET COUNT 184 x10e3/uL (140-360); RED BLOOD COUNT 3.98 x10e6/uL (3.6-5.1); RED CELL DISTRIBUTION WIDTH 13.1 % (11.7-14.4); WHITE BLOOD COUNT 7.91 x10e3/uL (4.8-10.8)
[2024-08-01 07:11] LABS: ALBUMIN 3.4 g/dL (3.5-5.0); ALBUMIN/GLOBULIN RATIO 1.4 (0.8-2.0); ANION GAP 10.3 mmol/L (8-16); BILIRUBIN,TOTAL 0.4 mg/dL (0.2-1.2); CALCIUM 8.7 mg/dL (8.4-10.2); CREATININE, SERUM 0.69 mg/dL (0.57-1.11); TOTAL PROTEIN 5.9 g/dL (6.5-8.1)
[2024-08-01 07:14] LABS: POTASSIUM 3.3 mmol/L (3.5-5.1)
[2024-08-01 07:31] VITALS: BP 138/95; PULSE 87; RESP 18; TEMP 99; O2SAT 98
[2024-08-01 08:17] VITALS: BP 150/97; PULSE 73; RESP 19; TEMP 98.6; O2SAT 98
[2024-08-01 11:54] VITALS: BP 143/80; PULSE 77; RESP 19; TEMP 98.2; O2SAT 99
[2024-08-01] MEDS ORDERED: ESTRADIOL42.5 GM TOP (14:38)
[2024-08-01 15:08] VITALS: BP 115/103; PULSE 62; RESP 19; TEMP 98.6; O2SAT 99
== END 2024-08-01 18:25 | disposition home or self-care (01) | DRG 917 ==
LOC: ER 08:43 → ERHOLD 11:22 → ICU 17:30 → MED/SURG2 07-31 11:50
PROVIDERS: ADMIT Internal Medicine; ATTEND Internal Medicine
PROC: 02H633Z Insertion of Infusion Device into Right Atrium, Percutaneous Approach (ICD-10-PCS; principal; 2024-07-30)
DX: T40.2X1A Poisoning by other opioids, accidental (unintentional), initial encounter (principal); G92.8 Other toxic encephalopathy; J69.0 Pneumonitis due to inhalation of food and vomit; N17.9 Acute kidney failure, unspecified; E87.20 Acidosis, unspecified; I50.22 Chronic systolic (congestive) heart failure; E83.51 Hypocalcemia; I11.0 Hypertensive heart disease with heart failure; E11.21 Type 2 diabetes mellitus with diabetic nephropathy; I95.9 Hypotension, unspecified; D64.9 Anemia, unspecified; E86.0 Dehydration; E87.6 Hypokalemia; N28.9 Disorder of kidney and ureter, unspecified; M06.9 Rheumatoid arthritis, unspecified; G89.4 Chronic pain syndrome; F41.9 Anxiety disorder, unspecified; F32.A Depression, unspecified; K21.9 Gastro-esophageal reflux disease without esophagitis; M79.7 Fibromyalgia; M17.0 Bilateral primary osteoarthritis of knee; S00.81XA Abrasion of other part of head, initial encounter; R32 Unspecified urinary incontinence; Z79.82 Long term (current) use of aspirin; Z79.891 Long term (current) use of opiate analgesic; Z86.711 Personal history of pulmonary embolism; Z87.440 Personal history of urinary (tract) infections; I25.2 Old myocardial infarction; Z90.49 Acquired absence of other specified parts of digestive tract; Z90.710 Acquired absence of both cervix and uterus; Z87.891 Personal history of nicotine dependence; Z88.5 Allergy status to narcotic agent; Z82.49 Family history of ischemic heart disease and other diseases of the circulatory system; W18.30XA Fall on same level, unspecified, initial encounter; Y92.019 Unspecified place in single-family (private) house as the place of occurrence of the external cause
CPT/HCPCS: 36415; 36569; 36600; 51700; 70450; 71045; 72125; 72170; 80048; 80053; 80061; 80307; 80320; 80329; 81001; 82550; 82805; 82948; 83605; 83735; 83880; 84484; 85025; 85610; 85730; 87040; 87086; 93005; 94799; 99285; J1650; J2310; J2470; J2543; J3475; J3480; J7030; J7040; J7042; J7050

== ENCOUNTER 2025-06-07 08:26 | Emergency (ER) | payer MEDICARE, OTHER ==
[~2025-06-07] VITALS: Ht 162.6 cm; Wt 88.9 kg
[~2025-06-07 08:26] MED LIST changes: +ESTRADIOL42.5 GM TOP
[2025-06-07 08:36] VITALS: RESP 18; TEMP 98.4
[2025-06-07] MEDS: ONDANSETRON HCL INJ 2MG/ML 2ML 2 MG/ML VIAL IV STA (08:55)
[2025-06-07] MEDS: SODIUM CHLORIDE 0.9% 1000ML 1,000 ML IV STA (08:57)
[2025-06-07] MEDS: DICYCLOMINE HCL 20 MG/2 ML VIAL IM ONE (08:58)
[2025-06-07 09:00] LABS: BASOPHILS % 0.3 % (0.0-1.0); EOSINOPHILS % 0.0 % (0.0-6.0); LYMPHOCYTES % 11.6 % (18.0-39.1); MONOCYTES % 3.8 % (4.4-11.3); NEUTROPHILS % 83.5 % (38.7-80.0); RED CELL DISTRIBUTION WIDTH 14.4 % (11.7-14.4)
[2025-06-07 09:25] LABS: INR 0.88
[2025-06-07 09:32] LABS: EST GLOMERULAR FILTRATION RATE 84.0 ML/MIN (>=60)
[2025-06-07] MEDS ORDERED: IOPAMIDOL 370 MG/ML 100 ML INFUS..BTL INJ ONE (09:52)
[2025-06-07] MEDS: HYDROMORPHONE 1MG/1ML INJ IV STA (10:18)
[2025-06-07] MEDS: PROMETHAZINE 12.5MG/ NACL 0.9% 12.5 MG/50 ML BAG IV ONE (10:20)
[2025-06-07 10:43] LABS: LEUKOCYTE ESTERASE ,URINE NEGATIVE (NEGATIVE); PROTEIN,URINE DIPSTICK NEGATIVE (NEGATIVE); URINE UROBILINOGEN 0.2 mg/dL (0.2 - 1)
[2025-06-07] MEDS ORDERED: DEXTROSE 50% SYRINGE 50 ML IV ONE (11:04)
[2025-06-07 11:07] LABS: EPITHELIAL CELLS,URINE RARE /LPF; WBC,URINE (MAN) 0-5 /HPF (0-5)
[2025-06-07 11:30] VITALS: PULSE 71; O2SAT 95
== END 2025-06-07 14:00 | disposition home or self-care (01) ==
LOC: ER 08:38
DX: R11.2 Nausea with vomiting, unspecified (principal); I10 Essential (primary) hypertension; E11.65 Type 2 diabetes mellitus with hyperglycemia; J44.9 Chronic obstructive pulmonary disease, unspecified; I50.9 Heart failure, unspecified; F41.9 Anxiety disorder, unspecified; G89.29 Other chronic pain; R94.31 Abnormal electrocardiogram [ECG] [EKG]; Z96.641 Presence of right artificial hip joint; Z96.651 Presence of right artificial knee joint
CPT/HCPCS: 36415; 71045; 74177; 76705; 80053; 81001; 82550; 83690; 83735; 84484; 85025; 85610; 85730; 87086; 87186; 93005; 99284; J0500; J1171; J2405; J2470; J2550; J7030; Q9967; J7799